=== PATIENT | female | born 1960 | race Caucasian/White ===

== ENCOUNTER → 2020-02-21 09:59 | Outpatient (BNVA) | payer MEDICARE, OTHER, SELFPAY | PROVIDERS: PCP Internal Medicine; Referring Provider Internal Medicine; Visit Provider Nurse Practitioner Gerontology | DX: E11.65 Type 2 diabetes mellitus with hyperglycemia (principal); I10 Essential (primary) hypertension; E78.5 Hyperlipidemia, unspecified; Z79.4 Long term (current) use of insulin | CPT/HCPCS: 82947; 99214 ==

== ENCOUNTER 2020-04-05 09:50 | Outpatient (REF) | payer MEDICARE, OTHER, SELFPAY ==
--- NOTE | 2020-04-05 | MM_ITS ---
EXAMINATION: MM SCREENING DIGITAL BREAST TOMOSYNTHESIS, BILATERAL CLINICAL INFORMATION: Screening. Asymptomatic. The lifetime risk of breast cancer based on the Tyrer-Cuzick Model is 12.5%. COMPARISON: Mammography: January 28, 2019 and studies dating back to December 14, 2007 TECHNIQUE: Digital breast tomosynthesis is performed in both the craniocaudal and mediolateral oblique views along with computer-aided detection (CAD). Synthesized 2D images are generated from the tomosynthesis. FINDINGS: The breasts are almost entirely fatty (ACR BI-RADS breast composition Category a). There are no significant masses, abnormal calcifications, or other abnormalities. MM/MM tomosynthesis screening BI IMPRESSION: There are no significant changes from prior study. ASSESSMENT: BI-RADS 1: Negative RECOMMENDATION: Routine annual mammography screening. This patient's information was entered into a reminder system with a target due date for their next mammogram.
== END 2020-04-05 09:51 | disposition home or self-care (01) ==
LOC: HO.MAMMO 09:50
PROVIDERS: PCP Internal Medicine; Visit Provider Internal Medicine
DX: Z12.31 Encounter for screening mammogram for malignant neoplasm of breast (principal)
CPT/HCPCS: 77063; 77067

== ENCOUNTER → 2020-05-24 07:36 | Outpatient (BNVA) | payer MEDICARE, OTHER, SELFPAY | PROVIDERS: PCP Internal Medicine; Visit Provider Nurse Practitioner Gerontology | DX: Z13.89 Encounter for screening for other disorder (principal) | CPT/HCPCS: Q3014 ==

== ENCOUNTER → 2020-11-02 09:52 | Outpatient (BNVA) | payer MEDICARE, OTHER, SELFPAY | PROVIDERS: PCP Internal Medicine; Visit Provider Nurse Practitioner Gerontology | DX: E11.65 Type 2 diabetes mellitus with hyperglycemia (principal); E11.42 Type 2 diabetes mellitus with diabetic polyneuropathy; E78.5 Hyperlipidemia, unspecified; E66.01 Morbid (severe) obesity due to excess calories; I10 Essential (primary) hypertension; Z79.4 Long term (current) use of insulin; Z68.43 Body mass index [BMI] 50.0-59.9, adult | CPT/HCPCS: 82947; 99212 ==

== ENCOUNTER → 2021-02-25 12:54 | Outpatient (BNVA) | payer MEDICARE, OTHER, SELFPAY | PROVIDERS: PCP Internal Medicine; Visit Provider Nurse Practitioner Gerontology | DX: E11.42 Type 2 diabetes mellitus with diabetic polyneuropathy (principal); E11.319 Type 2 diabetes mellitus with unspecified diabetic retinopathy without macular edema; E11.65 Type 2 diabetes mellitus with hyperglycemia; E78.5 Hyperlipidemia, unspecified; E66.01 Morbid (severe) obesity due to excess calories; I10 Essential (primary) hypertension; Z79.4 Long term (current) use of insulin; Z68.43 Body mass index [BMI] 50.0-59.9, adult | CPT/HCPCS: 82947; 99212 ==

== ENCOUNTER → 2021-09-17 15:16 | Outpatient (BNVA) | payer MEDICARE, OTHER, SELFPAY | PROVIDERS: PCP Internal Medicine; Referring Provider Internal Medicine; Visit Provider Surgery | DX: L02.11 Cutaneous abscess of neck (principal); L72.0 Epidermal cyst | CPT/HCPCS: 99202 ==

== ENCOUNTER 2022-02-05 12:17 | Outpatient (REF) | payer MEDICARE, SELFPAY ==
--- NOTE | ~2022-02-05 | MM_ITS ---
EXAMINATION: MM SCREENING DIGITAL BREAST TOMOSYNTHESIS, BILATERAL CLINICAL INFORMATION: Screening. Asymptomatic. The lifetime risk of breast cancer based on the Tyrer-Cuzick Model is 12%. COMPARISON: Mammography: 04/05/2020, 01/28/2019 TECHNIQUE: Digital breast tomosynthesis is performed in both the craniocaudal and mediolateral oblique views along with computer-aided detection (CAD). Synthesized 2D images are generated from the tomosynthesis. Additional bilateral CC and additional bilateral MLO views are provided. FINDINGS: The breasts are almost entirely fatty (ACR BI-RADS breast composition Category a). Background stromal and fibroglandular densities are similar to prior exams. There is no developing density or interval mass or architectural abnormality. Again, there are scattered bilateral benign round and rim calcifications. The axilla and skin contours are unremarkable. No significant changes. MM/MM tomosynthesis screening BI IMPRESSION: No mammographic evidence of malignancy. ASSESSMENT: BI-RADS 1: Negative RECOMMENDATION: Routine annual mammography screening. This patient's information was entered into a reminder system with a target due date for their next mammogram.
== END 2022-02-05 12:18 | disposition home or self-care (01) ==
LOC: HO.MAMMO 12:17
PROVIDERS: Visit Provider Internal Medicine
DX: Z12.31 Encounter for screening mammogram for malignant neoplasm of breast (principal)
CPT/HCPCS: 77063; 77067

== ENCOUNTER 2022-08-17 18:15 | Emergency (ER) | payer MEDICARE, OTHER, SELFPAY ==
--- NOTE | ~2022-08-17 | US_ITS ---
EXAMINATION: US ABDOMEN LIMITED CLINICAL INFORMATION: Rule out periumbilical abscess. COMPARISON: None available. TECHNIQUE: Real-time imaging of the umbilical region FINDINGS: There is ill-defined heterogeneous hypoechoic soft tissue seen in the area of concern superior to the umbilicus. Appearance is suggestive of cellulitis. No focal fluid collection/abscess is seen. US/US abdomen limited IMPRESSION: Cellulitis. No focal fluid collection/abscess seen.
[2022-08-17 18:41] VITALS: BP 152/77; PULSE 88; RESP 18; TEMP 37.3; O2SAT 98; BMI 49.7
--- NOTE | 2022-08-17 18:48 | ED.GENADULT ---
HPI - General Adult General Chief complaint: Skin/Abscess/Foreign Body Stated complaint: bug bite infection Time Seen by Provider: 08/17/22 19:56 Source: patient, RN notes reviewed and old records reviewed Mode of arrival: ambulatory Limitations: no limitations History of Present Illness HPI narrative: 61-year-old female with past medical history significant for diabetes, history of renal transplant presents for evaluation of an infection to her abdomen. Patient reports that she felt a bug bite her a few days ago. There was initial pain and then some itching to the area around her belly button. She states that the area then became red hot and swollen. She talked to her doctor on Thursday, 2 days ago and was prescribed cephalexin She has taken 3 days of the cephalexin with no improvement in her symptoms She states that she had some chills but has not had any documented fevers No other complaints or concerns at this time. Related Data Home Medications Medication Instructions Recorded Confirmed calcifediol 30 mcg capsule,24 30 mcg PO DAILY 02/21/20 09/20/21 hr,extended release insulin syringe-needle U-100 1 mL #10 ea 02/21/20 09/20/21 30 gauge x 1/2 levothyroxine 50 mcg tablet 50 mcg PO DAILY 02/21/20 09/20/21 magnesium oxide 400 mg (241.3 mg 400 mg PO DAILY 02/21/20 02/25/21 magnesium) tablet mycophenolate mofetil 500 mg tablet 500 mg PO BID 02/21/20 09/20/21 nortriptyline 25 mg capsule 25 mg PO BID 02/21/20 09/20/21 prednisone 5 mg tablet 5 mg PO DAILY 02/21/20 09/20/21 simvastatin 20 mg tablet 20 mg PO DAILY 02/21/20 09/20/21 empagliflozin 10 mg-metformin ER 1 tab PO 05/24/20 09/20/21 1,000 mg tablet,extended release 24hr sumatriptan succinate 50 mg tablet 50 mg PO 02/25/21 02/25/21 lisinopril 40 mg tablet 40 mg PO DAILY 09/17/21 09/20/21 metoprolol succinate 50 mg 0 mg PO 09/17/21 09/20/21 tablet,extended release 24 hr Previous Rx's Medication Instructions Recorded blood sugar diagnostic (FreeStyle 1 strip miscellaneous QID #350 12/31/20 Lite Strips) strips flash glucose scanning reader #1 ea 02/25/21 (FreeStyle Neetu 2 Harrison) flash glucose sensor (FreeStyle #2 ea 02/25/21 Neetu 2 Sensor kit) insulin degludec 200 unit/mL (3 76 unit (0.38 mL) subcut DAILY PRN 04/16/21 mL) subcutaneous pen (Tresiba diabetes 90 days #42 mL FlexTouch U-200 insulin) pen needle, diabetic 32 gauge x 1 ea miscellaneous DAILY #100 ea 04/22/21 (BD Haven 2nd Gen Pen Needle) insulin aspart U-100 100 unit/mL 16 - 30 unit (0.16 - 0.3 mL) 05/14/21 subcutaneous solution (Novolog subcut QID 90 days #90 mL U-100 Insulin aspart) dulaglutide 3 mg/0.5 mL 3 mg (0.5 mL) subcut QWEEK #6 mL 11/21/21 subcutaneous pen injector (Trulicity) doxycycline hyclate 100 mg tablet 100 mg PO BID #20 tabs 08/17/22 Allergies Allergy/AdvReac Type Severity Reaction Status Date / Time No Known Allergies Allergy Unknown Verified 08/17/22 18:40 Review of Systems Constitutional: Constitutional: Reports as per HPI, Reports chills, Denies fatigue, Denies fever(s) and Denies headache(s) ENT: Denies headache(s) Cardiovascular: Cardiovascular: Denies chest pain and Denies dyspnea Respiratory: Respiratory: Denies cough and Denies dyspnea Gastrointestinal: Gastrointestinal: Denies abdominal pain, Denies constipation and Denies vomiting Genitourinary: Genitourinary: Denies dysuria Integumentary/Breasts: Skin/Breast: Reports erythema Neurologic: Denies headache(s) and Denies focal weakness Endocrine: Endocrine: Denies fatigue PMFSH Past Medical History Medical History BMI 50.0-59.9, adult Chronic kidney disease Diabetes mellitus with hyperglycemia Diabetes type 2, uncontrolled Essential hypertension Gout Hyperlipidemia LDL goal <100 Lupus Migraine headache Obesity due to excess calories Retinopathy Subclinical hypothyroidism Type 2 diabetes mellitus with diabetic polyneuropathy Type 2 diabetes mellitus with retinopathy Surgical History Hx of adenoidectomy Hx of appendectomy Hx of colonoscopy Hx of kidney transplant Hx of tonsillectomy Family History Family History Father Colon cancer Kidney disease Mother Throat cancer COPD (chronic obstructive pulmonary disease) Alzheimer disease Paternal Grandfather Colon cancer Maternal Grandfather Lung cancer Social History Social History Household Members: Family Alcohol intake: current Alcohol intake frequency: holidays/special occasions only Patient Tobacco Use Status: Never used Tobacco Physical Exam ED Vital Signs: Vital Signs - 24 hr 08/17/22 18:41 Temperature 99.1 F Pulse Rate 88 Respiratory Rate 18 Blood Pressure 152/77 H Pulse Oximetry 98 Oxygen Delivery Method Room Air BMI result Body Mass Index 49.7 Const General: healthy appearing, comfortable, no acute distress, alert and awake Nutritional Appearance: well nourished Orientation/consciousness: patient oriented x3 HENMT Head: Yes normocephalic and Yes atraumatic Throat: Yes posterior oropharynx normal Eyes Eyelids: Yes eyelids normal Conjunctivae: conjunctivae normal Sclerae: sclerae normal Corneas: corneas normal Pupils: Equal, round and reactive pupils present EOM: EOMs intact bilaterally Neck Neck: Yes full ROM Resp Effort & Inspection: normal respiratory effort, able to speak in complete sentences, no audible wheezes and not labored Auscultation: clear to auscultation bilaterally Cardio Rate: regular rate Rhythm: regular rhythm GI Other: Patient has a 7 cm area of erythema in the periumbilical region. There is induration with no clear fluctuance. The area encompasses the umbilicus. No purulent drainage Inspection: No distended Palpation (GI): Soft to palpation, not firm, nontender, no guarding and not rigid Auscultation: normoactive bowel sounds Neuro General: patient oriented x3 Cranial nerves: Yes CN's II-XII intact bilaterally, Yes Equal, round and reactive pupils present and Yes Bilaterally intact EOM present Cognition (Neuro): normal cognition Extrem Other: Moving all extremities well without any obvious deformities Course Course Course Narrative: 61-year-old female with history of diabetes and renal transplant presents for evaluation of ?I have an infection around the belly button. ? She believes that she was ?bit by something a few days ago and it was painful and itchy. The area then started to become red and painful and hot to the touch. Her doctor prescribed cephalexin on Thursday and she has had 3 days of antibiotics without any improvement in her symptoms which she actually feels is worsening. Plan to check basic labs and get an ultrasound to evaluate for abscess. There is no evidence of sepsis. Medical Decision Making Medical Decision Making [facility] Narrative: The patient has a very clear cellulitis. I ordered labs and ultrasound to evaluate for abscess that may require I& D. The ultrasound was negative for abscess and this shows cellulitis. The patient is not septic. She has been on Keflex so we will add doxycycline to cover for MRSA. Patient's doctor return for new or worsening symptoms at that point, she may require IV antibiotics if her symptoms do not improve Differential Diagnosis Abscess Cellulitis Dermatitis Acute rash Lab Data 08/17/22 18:59 08/17/22 18:59 Labs: Lab Results 08/17/22 08/17/22 Range/Units 18:59 18:59 WBC 15.1 H (4.8-10.8) X10*3/uL RBC 3.79 L (4.20-5.50) X10*6/uL Hgb 11.6 L (12.0-16.0) g/dl Hct 36.4 L (37.0-47.0) % MCV 96.0 (80.0-98.0) fL MCH 30.6 (27.0-33.0) pg MCHC 31.9 (31.0-35.0) g/dl RDW 13.3 (11.0-16.0) % Plt Count 208 (160-400) X10*3/uL MPV 9.5 (9.4-12.3) fL Immature Gran % (Auto) 0.6 H (0.0-0.4) % Neut % (Auto) 71.7 (45-73) % Lymph % (Auto) 15.5 L (20-40) % Moffat % (Auto) 9.6 (2-11) % Eos % (Auto) 2.4 (0-4) % Baso % (Auto) 0.2 (0-2) % Lymph # (Auto) 2.3 (1.2-4.9) X10*3/uL Moffat # (Auto) 1.5 H (0.1-1.2) X10*3/uL Eos # (Auto) 0.4 (0.0-0.4) X10*3/uL Baso # (Auto) 0.0 (0.0-0.2) X10*3/uL Abs Immat Gran (auto) 0.09 H (0.00-0.03) X10*3/uL Absolute Neuts (auto) 10.8 H (2.0-8.3) x10*3/uL Absolute Nucleated RBC 0.000 (0.0-0.012) X10*3/uL Nucleated RBC % (auto) 0.0 (0.0-0.2) /100WBC Sodium 143 (135-145) mmol/L Potassium 4.2 (3.3-5.1) mmol/L Chloride 112 H (96-108) mmol/L Carbon Dioxide 23 (22-29) mmol/L Anion Gap 12 (12-20) BUN 27 H (9-16) mg/dL Creatinine 1.70 H (0.5-1.4) mg/dL Estim Creat Clear Calc 44.1 Estimated GFR 31 Random Glucose 131 H (60-115) mg/dL Calcium 8.6 (8.4-10.2) mg/dL Total Bilirubin 0.5 (0.0-1.0) mg/dL AST 25 (5-31) U/L ALT 24 (0-31) U/L Alkaline Phosphatase 91 (39-117) U/L Total Protein 6.4 L (6.5-8.0) g/dL Albumin 3.5 (3.5-5.0) g/dL Discharge Plan Discharge Clinical Impression: Abdominal wall cellulitis Patient Disposition: Home, Self-Care Instructions: Cellulitis (ED) Additional Instructions: Your ultrasound did not show any evidence of abscess. Continue taking the cephalexin as prescribed In addition, start taking doxycycline twice daily for the next 10 days Follow-up with her primary doctor Return to the ER for any new or worsening symptoms Prescriptions: New doxycycline hyclate 100 mg tablet 100 mg PO BID Qty: 20 0RF No Action FreeStyle Lite Strips Strip 1 strip miscellaneous QID Qty: 350 3RF Tresiba FlexTouch U-200 200 unit/mL (3 mL) insulin pen 76 unit subcut DAILY PRN (Reason: diabetes) 90 Days Qty: 42 1RF pen needle, diabetic [BD Haven 2nd Gen Pen Needle] 32 gauge x needle 1 ea miscellaneous DAILY Qty: 100 3RF insulin aspart U-100 [Novolog U-100 Insulin aspart] 100 unit/mL solution 16 - 30 unit subcut QID 90 Days Qty: 90 1RF Trulicity 3 mg/0.5 mL pen injector 3 mg subcut QWEEK Qty: 6 1RF (DME) insulin syringe-needle U-100 1 mL 30 gauge x 1/2 syringe See Rx Instructions .ROUTE .MEDSUPPLY Qty: 10 Rx Instructions: As directed mycophenolate mofetil 500 mg tablet 500 mg PO BID Rayaldee 30 mcg capsule,extended release 24 hr 30 mcg PO DAILY prednisone 5 mg tablet 5 mg PO DAILY simvastatin 20 mg tablet 20 mg PO DAILY levothyroxine 50 mcg tablet 50 mcg PO DAILY nortriptyline 25 mg capsule 25 mg PO BID magnesium oxide 400 mg (241.3 mg magnesium) tablet 400 mg PO DAILY sumatriptan succinate 50 mg tablet 50 mg PO empagliflozin-metformin 10-1,000 mg tablet, IR - ER, biphasic 24hr 1 tab PO (DME) FreeStyle Neetu 2 Sensor Kit See Rx Instructions .ROUTE .MEDSUPPLY Qty: 2 11RF Rx Instructions: As directed every 2 weeks (DME) FreeStyle Neetu 2 Harrison Misc See Rx Instructions .ROUTE .MEDSUPPLY Qty: 1 0RF Rx Instructions: As directed lisinopril 40 mg tablet 40 mg PO DAILY metoprolol succinate 50 mg tablet extended release 24 hr 0 mg PO
[2022-08-17 19:06] LABS: MANUAL DIFF FLAG NO
[2022-08-17 19:07] LABS: Basophils Percent Auto 0.2 % (0-2); Eosinophils Absolute Auto 0.4 X10*3/uL (0.0-0.4); Eosinophils Percent Auto 2.4 % (0-4); Hematocrit 36.4 % (37.0-47.0); Hemoglobin 11.6 g/dl (12.0-16.0); Imm Gran Abs Auto 0.09 X10*3/uL (0.00-0.03); Imm Gran Pct Auto 0.6 % (0.0-0.4); Lymphocytes Absolute Auto 2.3 X10*3/uL (1.2-4.9); Lymphocytes Percent Auto 15.5 % (20-40); Mean Corpuscular HGB Conc 31.9 g/dl (31.0-35.0); Mean Corpuscular Hemoglobin 30.6 pg (27.0-33.0); Mean Platelet Volume 9.5 fL (9.4-12.3); Monocytes Absolute Auto 1.5 X10*3/uL (0.1-1.2); Monocytes Percent Auto 9.6 % (2-11); Neutrophils Absolute Auto 10.8 x10*3/uL (2.0-8.3); Neutrophils Percent Auto 71.7 % (45-73); Platelet Count 208 X10*3/uL (160-400); Red Blood Count 3.79 X10*6/uL (4.20-5.50); Red Cell Distribution Width 13.3 % (11.0-16.0); White Blood Count 15.1 X10*3/uL (4.8-10.8)
[2022-08-17 19:34] LABS: Alanine Aminotransferase 24 U/L (0-31); Albumin Level 3.5 g/dL (3.5-5.0); Alkaline Phosphatase 91 U/L (39-117); Anion Gap 12 (12-20); Aspartate Amino Transferase 25 U/L (5-31); Bilirubin Total 0.5 mg/dL (0.0-1.0); Blood Urea Nitrogen 27 mg/dL (9-16); Calcium 8.6 mg/dL (8.4-10.2); Carbon Dioxide 23 mmol/L (22-29); Chloride 112 mmol/L (96-108); Creatinine Clr Calc Pharmacy 44.1; Estimated Glomerular Filt Rate 31; Glucose Random 131 mg/dL (60-115); Potassium 4.2 mmol/L (3.3-5.1); Sodium 143 mmol/L (135-145); Total Protein 6.4 g/dL (6.5-8.0)
--- OUTSIDE RECORDS SUMMARY | 2022-08-17 20:03 | XMS_ITS | Continuity of Care Document ---
Author Name Unknown Organization [facility] ter Address [address] [place] [id number]- Care Team Providers Care Capital Campaign Fundraiser Name Role Phone Amaya MITCHELL, Davey Olmstead Primary Care Physician Encounter [facility] [place] Date(s): 08/06/21 - 02/11/[address] [address]- Attending Physician: Gaurang Rivera MD Admitting Physician: Gaurang Rivrea MD Referring Physician: Gaurang Rivera MD Allergies, Adverse Reactions, Alerts No Known Allergies Immunizations Given and Recorded Vaccine Date Status Refusal Reason SARS-CoV-2 (COVID-19) mRNA BNT-162b2 vac 01/10/21 Recorded Medications allopurinol 100 mg oral tablet 100 mg, 1, tablet, By Mouth, Daily, # 30 tablet, Refills 0, Maintenance, 09/28/18 12:07:01 EDT Start Date: 09/28/18 Status: Ordered belatacept = 5 mg/kg, IV Infusion, 0 Refills, Maintenance, 02/10/21 9:21:00 EDT, Partial fill upon patient request if the prescription is for a schedule II opioid drug. Start Date: 02/10/21 Status: Ordered CellCept 500 mg oral tablet 1 tablet = 500 mg, By Mouth, 2 times a day, # 120 tablet, 0 Refills, Maintenance, 09/28/18 12:05:47EDT, Tablet Start Date: 09/28/18 Status: Ordered furosemide 20 mg oral tablet 20 mg, 1, tablet, By Mouth, Daily, PRN, leg swelling, Other Start Date: 09/28/18 Status: Ordered lisinopril 10 mg oral tablet 10 mg, 1, tablet, By Mouth, Daily, # 30 tablet, Refills 0, Maintenance, 05/05/21 9:22:00 EST, Partial fill upon patient request if the prescription is for a schedule II opioid drug. Start Date: 05/05/21 Status: Ordered metoprolol 50 mg oral tablet 50 mg, 1, tablet, By Mouth, Daily, Refills 0, Maintenance, 05/05/21 9:23:00 EST, Partial fill upon patient request if the prescription is for a schedule II opioid drug. Start Date: 05/05/21 Status: Ordered nortriptyline 25 mg oral capsule 25 mg, 1, capsule, By Mouth, 2 times a day, # 270 capsule, Refills 0, Maintenance, 12/27/19 10:38:00 EDT Start Date: 12/27/19 Status: Ordered NovoLOG 100 units/mL subcutaneous solution = 20 units, Subcutaneous Injection, 3 times a day before meals, # 10 mL, 0 Refills, Maintenance, 09/28/18 12:06:08 EDT, Solution Start Date: 09/28/18 Status: Ordered Percocet 5 mg-325 mg oral tablet 1, tablet, By Mouth, Every 6 hours, PRN, Refills 0, Tot. Refills 0, Maintenance, as needed for pain, 03/10/21 9:23:00 EST, Tablet, Partial fill upon patient request if the prescription is for a schedule II opioid drug. Start Date: 03/10/21 Status: Ordered predniSONE 5 mg oral tablet 1 tablet = 5 mg, By Mouth, Daily, 0 Refills, Maintenance, 09/28/18 14:29:57 EDT Start Date: 09/28/18 Status: Ordered Rayaldee 30 mcg oral capsule, extended release 1 capsule = 30 mcg, By Mouth, Daily Start Date: 09/28/18 Status: Ordered simvastatin 10 mg oral tablet 10 mg, 1, tablet, By Mouth, Daily in AM, # 30 tablet, Refills 0, Maintenance, 09/28/18 12:07:17 EDT Start Date: 09/28/18 Status: Ordered Synjardy 5 mg-1000 mg oral tablet 1 tablet, By Mouth, Daily, with meals, # 180 tablet, 0 Refills, Maintenance, 06/03/20 10:13:00 EST,Tablet, Partial fill upon patient request if the prescription is for a schedule II opioid drug. Start Date: 2/7/21 Status: Ordered Tresiba FlexTouch 200 units/mL subcutaneous solution = 100 units, Subcutaneous Injection, Daily, rotate injection sites, # 9 mL, 0 Refills, Maintenance,09/28/18 12:06:28 EDT, Solution Start Date: 09/28/18 Status: Ordered Trulicity Pen 1.5 mg/0.5 mL subcutaneous solution = 1.5 mg, Subcutaneous Injection, Every Thursday Start Date: 09/28/18 Status: Ordered Patient Care team information Personnel Name: Amaya MITCHELL, Davey Olmstead Address: Address: [address] [place] [id number]
--- OUTSIDE RECORDS SUMMARY | 2022-08-17 20:03 | XMS_ITS | Continuity of Care Document ---
Author Name Unknown Organization [facility] ter Address [address] [place] [id number]- Care Team Providers Care Door Repairman Name Role Phone Amaya MITCHELL, Davey Olmstead Primary Care Physician [place] [facility] [place] 01/[place]/[address] [address]- Attending Physician: Garuang Rivera MD Admitting Physician: Gaurang Rivera MD Referring Physician: Gaurang Rivera MD Allergies, [...] Every Thursday Start Date: 09/28/18 Status: Ordered Care Team Personnel Name: Amaya MITCHELL, Davey Olmstead Address: [address] [place] [id number]
--- OUTSIDE RECORDS SUMMARY | 2022-08-17 20:03 | XMS_ITS | Continuity of Care Document ---
Author Name Unknown Organization [facility] ter Address [address] [place] [id number]- Care Team Providers Care Stand Up Forklift Operator Name Role Phone Amaya MITCHELL, Davey Olmstead Primary Care Physician [place] [facility] [place] - 11/19/[address] [address]- Attending Physician: Gaurang Rivera MD Admitting Physician: Gaurang Rivera MD [...]
--- OUTSIDE RECORDS SUMMARY | 2022-08-17 20:03 | XMS_ITS | Continuity of Care Document ---
Author Name Unknown Organization [facility] ter Address [address] [place] [id number]- Care Team Providers Care Case Management Manager Name Role Phone Amaya MITCHELL, Davey Olmstead Primary Care Physician Encounter [facility] [place] Date(s): 07/16/21 - 08/29/[address] [id number] Attending Physician: Eufemia Chopra MD Admitting Physician: Eufemia Chopra MD Referring Physician: Eufemia Chopra MD Allergies, Adverse Reactions, Alerts No Known [...] a schedule II opioid drug. Start Date: 06/03/20 Status: Ordered Tresiba FlexTouch 200 units/mL subcutaneous solution = 100 units, Subcutaneous Injection, Daily, rotate injection sites, # 9 mL, 0 Refills, Maintenance,09/28/18 12:06:28 EDT, Solution Start Date: 09/28/18 Status: Ordered Trulicity Pen 1.5 mg/0.5 mL subcutaneous solution = 1.5 mg, Subcutaneous Injection, Every Thursday Start Date: 09/28/18 Status: Ordered
--- OUTSIDE RECORDS SUMMARY | 2022-08-17 20:03 | XMS_ITS | Continuity of Care Document ---
Author Name Unknown Organization [facility] ter Address [address] [place] [id number]- Care Team Providers Care Tower Control Operator Name Role Phone Amaya MITCHELL, Davey Olmstead Primary Care Physician [place] [facility] [id number] Date(s): 03/14/20 - 06/28/[address] [address] Attending Physician: Gaurang Rivera MD Admitting Physician: Gaurang Rivera MD Referring Physician: Gaurang Rivera MD Allergies, Adverse Reactions, Alerts Substance Reaction Severity Status NKA Active Medications allopurinol 100 mg oral tablet 100 mg, 1, tablet, By Mouth, Daily, # 30 tablet, Refills 0, Maintenance, 09/28/18 12:07:01 EDT Start Date: 09/28/18 Status: Ordered CellCept 500 mg oral tablet 1 tablet = 500 mg, By Mouth, 2 times a day, # 120 tablet, 0 Refills, Maintenance, 09/28/18 12:05:47EDT, Tablet Start Date: 09/28/18 Status: Ordered Envarsus XR 1 mg oral tablet, extended release 2 tablet = 2 mg, By Mouth, Daily in AM, 0 Refills, Maintenance, 09/28/18 12:05:34 EDT Start Date: 09/28/18 Status: Ordered furosemide 20 mg oral tablet 20 mg, 1, tablet, By Mouth, Daily Start Date: 09/28/18 Status: Ordered lisinopril 5 mg oral tablet 5 mg, 1, tablet, By Mouth, Daily, # 30 tablet, Refills 0, Maintenance, 09/28/18 12:07:11 EDT Start Date: 09/28/18 Status: Ordered nortriptyline 25 mg oral capsule 25 mg, 1, capsule, By Mouth, 2 times a day, # 270 capsule, Refills 0, Maintenance, 12/27/19 10:38:00 EDT Start Date: 12/27/19 Status: Ordered NovoLOG 100 units/mL subcutaneous solution = 20 units, Subcutaneous Injection, 3 times a day before meals, # 10 mL, 0 Refills, Maintenance, 09/28/18 12:06:08 EDT, Solution Start Date: 09/28/18 Status: Ordered predniSONE 5 mg oral tablet 1 tablet = 5 mg, By Mouth, Daily, 0 Refills, Maintenance, 09/28/18 14:29:57 EDT Start Date: 09/28/18 Status: Ordered Rayaldee 30 mcg oral capsule, extended release 1 capsule = 30 mcg, By Mouth, Daily Start Date: 09/28/18 Status: Ordered simvastatin 10 mg oral tablet 10 mg, 1, tablet, By Mouth, Daily at bedtime, # 30 tablet, Refills 0, Maintenance, 09/28/18 [...]
--- OUTSIDE RECORDS SUMMARY | 2022-08-17 20:03 | XMS_ITS | Continuity of Care Document ---
Author Name Unknown Organization [facility] ter Address [address] [place] [id number]- Care Team Providers Care Steaming Machine Operator Name Role Phone Amaya MITCHELL, Davey Olmstead Primary Care Physician [place] [facility] [place] 05/12/19 - 05/19/[address] [address]- [facility] Attending Physician: Eufemia Chopra MD Allergies, Adverse Reactions, Alerts Substance Reaction [...] 12:07:11 EDT Start Date: 09/28/18 Status: Ordered NovoLOG 100 units/mL subcutaneous solution [...] 12:07:17 EDT Start Date: 09/28/18 Status: Ordered Tresiba FlexTouch 200 units/mL subcutaneous solution = 100 units, Subcutaneous Injection, Daily, rotate injection sites, # 9 mL, 0 Refills, Maintenance,09/28/18 12:06:28 EDT, Solution Start Date: 09/28/18 Status: Ordered Trulicity Pen 1.5 mg/0.5 mL subcutaneous solution = 1.5 mg, Subcutaneous Injection, Every Thursday Start Date: 09/28/18 Status: Ordered Results Orders for Microbiology Reports Name Date Urine Culture (URINE CULTURE) 05/12/19 Microbiology Reports TEST:Urine Culture STATUS:Auth (Verified) BODY SITE: SOURCE:URINE COLLECTED DATE/TIME:05/12/19 10:08 AM Urine Culture SPECIMEN DESCRIPTION : URINE SPECIAL REQUESTS : NONE Reflexed from [id number] CULTURE : Mixed bacterial andrez, indicative of urogenital contamination. REPORT STATUS : FINAL 05/13/2019
[2022-08-17] MEDS: Doxycycline Monohydrate 100 MG CAPSULE PO (20:13)
--- NOTE | 2022-08-17 20:16 | PC.NURSE ---
pt medicated per MAR fully ambulatory at dc
== END 2022-08-17 20:16 | disposition home or self-care (01) ==
PROVIDERS: Physician Assistant; Emergency Provider Internal Medicine; PCP Internal Medicine
DX: L03.311 Cellulitis of abdominal wall (principal); R10.2 Pelvic and perineal pain; Z79.899 Other long term (current) drug therapy
CPT/HCPCS: 36415; 76705; 80053; 85025; 99282; 99284

== ENCOUNTER 2023-07-22 09:36 | Outpatient (REF) | payer OTHER, MEDICAID, SELFPAY ==
--- NOTE | ~2023-07-22 | XR_ITS ---
EXAMINATION: XR LUMBOSACRAL SPINE CLINICAL INFORMATION: Low back pain COMPARISON: Lumbar spine 10/31/2011 TECHNIQUE: Three views of the lumbosacral spine. FINDINGS: There 5 nonrib-bearing lumbar-type vertebral bodies. The height of the lumbar vertebral bodies is well-maintained. There is mild compression of the T12 vertebral body, unchanged. There is straightening of the usual lumbar lordosis which can be seen with muscle spasm. There is interval development of degenerative disc disease at all lumbar levels with marginal osteophyte formation and vacuum phenomenon at almost all levels. There is multilevel degenerative facet joint disease, most pronounced in the lower lumbar spine. Multiple surgical clips are again seen in the right side of the pelvis. 1.6 cm calcification projects over the left upper SI joint. XR/XR lumbar spine 2-3V IMPRESSION: 1. Muscle spasm. 2. Multilevel degenerative disc disease and degenerative facet joint disease. 3. 1.6 cm calcification projects over the left upper SI joint, possibly representing a calcified lymph node.
== END 2023-07-22 09:37 | disposition home or self-care (01) ==
LOC: HO.HMGCX 09:36
PROVIDERS: PCP Internal Medicine; Visit Provider Internal Medicine
DX: M54.50 Low back pain, unspecified (principal)
CPT/HCPCS: 72100

== ENCOUNTER 2023-10-24 10:12 | Emergency (ER) | payer OTHER, MEDICAID, SELFPAY ==
--- NOTE | ~2023-10-24 | XR_ITS ---
EXAMINATION: XR chest 2V CLINICAL INFORMATION: Reason for Exam cough COMPARISON: Prior chest x-rays not available at the time of this dictation. TECHNIQUE: XR chest 2V, 2 Views Lungs and [place]: Mild increased lung markings and peribronchial wall thickening might be small airway disease such as bronchiolitis or mild interstitial pneumonitis, no dense focal consolidation lobar pneumonia. Mild prominence of the pulmonary vasculature without marika failure. Pleura: Normal. Costophrenic angles are sharp. No pneumothorax. Heart: Cardiac silhouette mildly enlarged. Mediastinum: Widened mediastinum, although could be vascular, cannot rule out underlying mediastinal lymphadenopathy. Bones: Skeletal structures included are normal for patient's age. XR/XR chest 2V IMPRESSION: 1. Mild increased lung markings and peribronchial wall thickening might be small airway disease such as bronchiolitis or mild interstitial pneumonitis, no dense focal consolidation lobar pneumonia. 2. Mild vascular congestion without marika failure. Widened mediastinum, although could be vascular, cannot rule out underlying mediastinal lymphadenopathy. May consider correlation with follow-up CT scan, if not performed follow-up x-ray in one month recommended.
[2023-10-24 10:17] VITALS: BP 157/90; PULSE 105; RESP 26; TEMP 36.8; O2SAT 94; BMI 55.9
--- NOTE | 2023-10-24 10:55 | ECG_ITS ---
Test Reason : COUGH Blood Pressure : / mmHG Vent. Rate : 096 BPM Atrial Rate : 096 BPM P-R Int : 142 ms QRS Dur : 088 ms QT Int : 360 ms P-R-T Axes : 044 -51 019 degrees QTc Int : 454 ms Normal sinus rhythm Left anterior fascicular block Cannot rule out Inferior infarct (cited on or before 24-OCT-2023) Abnormal ECG When compared with ECG of 06-JUN-2014 07:19, No significant change was found Referred By: Elisabet Campos Electronically Signed By:EMMANUEL MOLINA MD
--- NOTE | 2023-10-24 11:05 | ED.URI ---
HPI - URI/Sore Throat General Chief Complaint: Upper Respiratory Symptoms Stated Complaint: not feeling well Time Seen by Provider: 10/24/23 10:54 Source: patient Mode of arrival: ambulatory Limitations: no limitations History of Present Illness ED Provider: DR. Mandujano HPI Narrative: 63-year-old female came in for evaluation of nonproductive cough, shortness of breath, wheezing. Patient is nonsmoker, no history of lung disease, no sick contacts, no recent travel or prolonged immobilization no lower extremity swelling or tenderness. symptoms started 2 days ago. No fever, chills. Patient with history of kidney transplant 20 years ago at [facility]. Related Data Home Medications ?Medication ?Instructions ?Recorded ?Confirmed calcifediol 30 mcg capsule,24 30 mcg PO DAILY 02/21/20 09/20/21 hr,extended release insulin syringe-needle U-100 1 mL #10 ea 02/21/20 09/20/21 30 gauge x 1/2 levothyroxine 50 mcg tablet 50 mcg PO DAILY 02/21/20 09/20/21 magnesium oxide 400 mg (241.3 mg 400 mg PO DAILY 02/21/20 02/25/21 magnesium) tablet mycophenolate mofetil 500 mg tablet 500 mg PO BID 02/21/20 09/20/21 nortriptyline 25 mg capsule 25 mg PO BID 02/21/20 09/20/21 prednisone 5 mg tablet 5 mg PO DAILY 02/21/20 09/20/21 simvastatin 20 mg tablet 20 mg PO DAILY 02/21/20 09/20/21 empagliflozin 10 mg-metformin ER 1 tab PO 05/24/20 09/20/21 1,000 mg tablet,extended release 24hr sumatriptan succinate 50 mg tablet 50 mg PO 02/25/21 02/25/21 lisinopril 40 mg tablet 40 mg PO DAILY 09/17/21 09/20/21 metoprolol succinate 50 mg 0 mg PO 09/17/21 09/20/21 tablet,extended release 24 hr Previous Rx's ?Medication ?Instructions ?Recorded blood sugar diagnostic (FreeStyle 1 strip miscellaneous QID #350 12/31/20 Lite Strips) strips flash glucose scanning reader #1 ea 02/25/21 (FreeStyle Neetu 2 Avis) flash glucose sensor (FreeStyle #2 ea 11/01/21 Neetu 2 Sensor kit) insulin degludec 200 unit/mL (3 76 unit (0.38 mL) subcut DAILY PRN 04/16/21 mL) subcutaneous pen (Tresiba diabetes 90 days #42 mL FlexTouch U-200 insulin) pen needle, diabetic 32 gauge x 1 ea miscellaneous DAILY #100 ea 04/22/21 (BD Haven 2nd Gen Pen Needle) insulin aspart U-100 100 unit/mL 16 - 30 unit (0.16 - 0.3 mL) 05/14/21 subcutaneous solution (Novolog subcut QID 90 days #90 mL U-100 Insulin aspart) dulaglutide 3 mg/0.5 mL 3 mg (0.5 mL) subcut QWEEK #6 mL 11/21/21 subcutaneous pen injector ([employer]) doxycycline hyclate 100 mg tablet 100 mg PO BID #20 tabs 08/17/22 Allergies Allergy/AdvReac Type Severity Reaction Status Date / Time No Known Allergies Allergy Unknown Verified 10/24/23 10:20 Review of Systems Review of Systems: All other systems are reviewed and are negative Constitutional: Reports as per HPI and Reports no additional constitutional complaints Eyes: Reports as per HPI and Reports no additional eye complaints Reports system reviewed and no additional complaints, except as documented Cardiovascular: Reports as per HPI and Reports no additional cardiovascular complaints Respiratory: Reports as per HPI and Reports no additional respiratory complaints Gastrointestinal: Reports as per HPI and Reports no additional gastrointestinal complaints Genitourinary: Reports no additional female genitourinary complaints Musculoskeletal: Reports no additional musculoskeletal complaints Skin/Breast: Reports system reviewed and no additional complaints, except as docu Psychiatric: Reports no additional psychiatric complaints Endocrine: Reports no additional endocrine complaints Hematologic/Lymphatic: Reports no additional hematologic/lymphatic complaints Allergic/Immunologic: Reports no additional allergic/immunologic complaints Reports system reviewed and no additional complaints, except as documented and Reports Abnormal speech present [facility] Past Medical History Medical History Diabetes type 2, uncontrolled Type 2 diabetes mellitus with retinopathy Obesity due to excess calories Type 2 diabetes mellitus with diabetic polyneuropathy Chronic kidney disease Retinopathy Subclinical hypothyroidism Gout Migraine headache Lupus Essential hypertension Hyperlipidemia LDL goal <100 BMI 50.0-59.9, adult Diabetes mellitus with hyperglycemia Surgical History Hx of colonoscopy Hx of adenoidectomy Hx of tonsillectomy Hx of appendectomy Hx of kidney transplant Family History Family History Father Colon cancer Kidney disease Mother Throat cancer COPD (chronic obstructive pulmonary disease) Alzheimer disease Paternal Grandfather Colon cancer Maternal Grandfather Lung cancer Social History Social History Household Members: Family Alcohol intake: current Alcohol intake frequency: holidays/special occasions only Patient Tobacco Use Status: Never used Tobacco Advance Directives: No Do you have a plan to hurt others: No Plan Physical Exam Vital Signs: Vital Signs: Last Vital Signs Temp 98.3 F 10/24/23 15:22 Pulse 92 10/24/23 15:22 Resp 24 H 10/24/23 15:22 BP 162/83 H 10/24/23 15:22 Pulse Ox 90 L 10/24/23 15:22 O2 Del Method Room Air 10/24/23 15:22 BMI result Body Mass Index 55.9 Vital signs have been reviewed and appear to be correct. Blood pressure elevated. Heart rate elevated, Respiratory rate elevated, Temperature normal. Oxygen saturation normal. Appearance: Alert. Oriented X3. No acute distress. Head: Normal external exam. Normocephalic. Atraumatic. No Dean signs noted. No raccoon eyes noted Eyes: PERRLA. EOMI. Conjunctiva and sclera normal. Eyelids normal. ENT: TM's Normal. Pharynx normal. Uvula midline. Moist mucous membranes. No trismus noted. No drooling noted. No muffled voice noted. Neck: Normal inspection. Neck supple. FROM. No adenopathy. Thyroid Normal. No meningeal signs. No neck mass noted. CVS: Normal heart rate and rhythm. Heart sound normal. No murmurs noted. Pulses normal throughout. Respiratory: No respiratory distress. Painless inspiration. Breath sounds normal. Diffuse expiratory wheezing with prolonged expiration and diffuse rhonchi, Chest nontender. No accessory muscle usage noted or decreased air movement noted. Abdomen: Soft and nontender. Bowel sounds normal in all 4 quadrants. No distention noted. No organomegaly noted. No visible injury noted. Back: No CVA tenderness. Full range of motion noted. Skin: Skin warm and dry. Normal skin color. Normal skin turgor. No rashes/lesions/lacerations noted. Extremities: No lower extremity edema. Extremities exhibit normal range of motion. Extremities nontender. Neuro: Oriented X 3. Cranial nerve exam: II-XII are grossly intact No motor deficit. No sensory deficit. Reflexes normal. Course Reevaluation(s) Reevaluation #1: Acute bronchitis, COVID 19 positive, ANDREW, elevated troponin. 1. Diffuse wheezing with dyspnea due to viral bronchitis continue with Solu-Medrol and bronchodilator. 2. COVID-19 infection admit with isolation for supportive measures. 3. ANDREW secondary to dehydration and decreased p.o. intake will admit IV hydration. 4. Elevated troponin patient has no chest pain, no EKG changes, will monitor serial troponins. Time: 15:08 Reevaluation #2: The case discussed with Dr. Shin who recommended to transfer to [facility] since the patient has history of renal transplant 20 years ago at [facility] and require more care there, the case was discussed with who accepted the patient to [facility]. Time: 16:35 Medications Administered Generic Name Dose Route Start Last Admin Trade Name Freq PRN Reason Stop Dose Admin Sodium Chloride 3 ml 10/24/23 16:00 10/24/23 16:09 0.9 % Sodium Chloride Flush 3 Ml Syringe IVFLUSH Not Given QSHIFT DARI Discontinued Medications Generic Name Dose Route Start Last Admin Trade Name Freq PRN Reason Stop Dose Admin Aspirin 325 mg 10/24/23 11:54 10/24/23 12:09 Aspirin Enteric Coated 325 Mg Tablet. PO 10/24/23 11:55 325 mg ONCE ONE Administration Azithromycin 500 mg 10/24/23 11:05 10/24/23 11:16 Azithromycin 500 Mg Tablet PO 10/24/23 11:06 500 mg ONCE ONE Administration Albuterol Sulfate 5 mg/ 0 mg 10/24/23 11:52 10/24/23 11:54 Albuterol/Ipratropium 3 ml INHALE 10/24/23 11:53 1 each ONCE ONE Administration Sodium Chloride 1,000 mls @ 999 mls/hr 10/24/23 15:09 10/24/23 15:52 Ns IV 10/24/23 16:09 999 mls/hr .Q1H1M ONE Administration Methylprednisolone Sodium Succinate 125 mg 10/24/23 15:09 10/24/23 16:02 Methylprednisolone Sod Succ 125 Mg/2 Ml Vial IVPUSH 10/24/23 15:10 125 mg ONCE ONE Administration Prednisone 60 mg 10/24/23 11:05 10/24/23 11:16 Prednisone 20 Mg Tablet PO 10/24/23 11:06 60 mg ONCE ONE Administration Medical Decision Making Differential Diagnosis Differential Diagnoses: The differential diagnosis associated with the presentation includes (Pneumonia, pneumothorax, pleural effusion, COVID-19, influenza, RSV, electrolyte derangement, ANDREW, ACS.) Admission/Observation Consideration of admission/observation: Escalation of care including admission/observation considered Consult Healthcare Provider Management of the patient was discussed with: Hospitalist (Dr. Kearney) Lab Data MDM Lab Attestation statement: I reviewed the patient's lab results. 10/24/23 11:15 10/24/23 11:15 Labs: Lab Results 10/24/23 10/24/23 Range/Units 11:15 15:11 WBC 7.1 (4.8-10.8) X10*3/uL RBC 3.42 L (4.20-5.50) X10*6/uL Hgb 10.6 L (12.0-16.0) g/dl Hct 33.0 L (37.0-47.0) % MCV 96.5 (80.0-98.0) fL MCH 31.0 (27.0-33.0) pg MCHC 32.1 (31.0-35.0) g/dl RDW 13.5 (11.0-16.0) % Plt Count 86 L D (160-400) X10*3/uL MPV 9.3 L (9.4-12.3) fL Immature Gran % (Auto) 1.0 H (0.0-0.4) % Neut % (Auto) 71.3 (45-73) % Lymph % (Auto) 13.5 L (20-40) % [place] % (Auto) 13.3 H (2-11) % Eos % (Auto) 0.8 (0-4) % Baso % (Auto) 0.1 (0-2) % Lymph # (Auto) 1.0 L (1.2-4.9) X10*3/uL [place] # (Auto) 0.9 (0.1-1.2) X10*3/uL Eos # (Auto) 0.1 (0.0-0.4) X10*3/uL Baso # (Auto) 0.0 (0.0-0.2) X10*3/uL Abs Immat Gran (auto) 0.07 H (0.00-0.03) X10*3/uL Absolute Neuts (auto) 5.1 (2.0-8.3) x10*3/uL Absolute Nucleated RBC 0.000 (0.0-0.012) X10*3/uL Nucleated RBC % (auto) 0.0 (0.0-0.2) /100WBC D-Dimer High Sensitivty 407 NG/ML Sodium 140 (135-145) mmol/L Potassium 4.1 (3.3-5.1) mmol/L Chloride 106 (96-108) mmol/L Carbon Dioxide 26 (22-29) mmol/L Anion Gap 12 (12-20) BUN 26 H (9-16) mg/dL Creatinine 2.59 H (0.5-1.4) mg/dL Estim Creat Clear Calc 30.3 Estimated GFR 19 Random Glucose 170 H (60-115) mg/dL Calcium 8.2 L (8.4-10.2) mg/dL Magnesium 1.7 (1.6-2.6) mg/dL Total Bilirubin 0.8 (0.0-1.0) mg/dL Direct Bilirubin 0.4 (0.0-0.5) mg/dL AST 45 H (5-31) U/L ALT 45 H (0-31) U/L Alkaline Phosphatase 92 (39-117) U/L Troponin I High Sens 154.0 H* 128.5 H* (<3.5-17.0) ng/L Total Protein 5.1 L (6.5-8.0) g/dL Albumin 2.4 L (3.5-5.0) g/dL Lipase 297 H (8-78) U/L Influenza Type A (PCR) NEGATIVE (Negative) Influenza Type B (PCR) NEGATIVE (Negative) RSV RNA Qual (PCR) NEGATIVE (Negative) SARS-CoV-2 RNA (RT-PCR) POSITIVE A (Negative) Independent Interpretation I performed an independent interpretation of an: Plain X-Ray (Chest:. Mild increased lung markings and peribronchial wall thickening might be small airway disease such as bronchiolitis or mild interstitial pneumonitis, no dense focal consolidation lobar pneumonia. 2. Mild vascular congestion without marika failure. ) Radiology Impression Discussion of test interpretation with radiology: I have reviewed the radiologist's reading. Discharge Plan Discharge Clinical Impression: COVID-19, ANDREW (acute kidney injury), Elevated troponin Patient Disposition: [facility] Transfer Details: [facility]. Prescriptions: No Action FreeStyle Lite Strips Strip 1 strip miscellaneous QID Qty: 350 3RF Tresiba FlexTouch U-200 200 unit/mL (3 mL) insulin pen 76 unit subcut DAILY PRN (Reason: diabetes) 90 Days Qty: 42 1RF pen needle, diabetic [BD Haven 2nd Gen Pen Needle] 32 gauge x 5/32 needle 1 ea miscellaneous DAILY Qty: 100 3RF insulin aspart U-100 [Novolog U-100 Insulin aspart] 100 unit/mL solution 16 - 30 unit subcut QID 90 Days Qty: 90 1RF Trulicity 3 mg/0.5 mL pen injector 3 mg subcut QWEEK Qty: 6 1RF doxycycline hyclate 100 mg tablet 100 mg PO BID Qty: 20 0RF (DME) insulin syringe-needle U-100 1 mL 30 gauge x 1/2 syringe See Rx Instructions .ROUTE .MEDSUPPLY Qty: 10 Rx Instructions: As directed mycophenolate mofetil 500 mg tablet 500 mg PO BID Rayaldee 30 mcg capsule,extended release 24 hr 30 mcg PO DAILY prednisone 5 mg tablet 5 mg PO DAILY simvastatin 20 mg tablet 20 mg PO DAILY levothyroxine 50 mcg tablet 50 mcg PO DAILY nortriptyline 25 mg capsule 25 mg PO BID magnesium oxide 400 mg (241.3 mg magnesium) tablet 400 mg PO DAILY sumatriptan succinate 50 mg tablet 50 mg PO empagliflozin-metformin 10-1,000 mg tablet, IR - ER, biphasic 24hr 1 tab PO (DME) FreeStyle Neetu 2 Sensor Kit See Rx Instructions .ROUTE .MEDSUPPLY Qty: 2 11RF Rx Instructions: As directed every 2 weeks (DME) FreeStyle Neetu 2 Avis Misc See Rx Instructions .ROUTE .MEDSUPPLY Qty: 1 0RF Rx Instructions: As directed lisinopril 40 mg tablet 40 mg PO DAILY metoprolol succinate 50 mg tablet extended release 24 hr 0 mg PO Print Language: Bulgarian
[2023-10-24] MEDS: predniSONE 20 MG TABLET 60 MG PO (11:16)
[2023-10-24] MEDS: Azithromycin 500 MG TABLET PO (11:16)
[2023-10-24 11:21] LABS: MANUAL DIFF FLAG NO
[2023-10-24 11:24] LABS: Basophils Percent Auto 0.1 % (0-2); Eosinophils Absolute Auto 0.1 X10*3/uL (0.0-0.4); Eosinophils Percent Auto 0.8 % (0-4); Hemoglobin 10.6 g/dl (12.0-16.0); Imm Gran Abs Auto 0.07 X10*3/uL (0.00-0.03); Lymphocytes Percent Auto 13.5 % (20-40); Mean Corpuscular HGB Conc 32.1 g/dl (31.0-35.0); Mean Corpuscular Volume 96.5 fL (80.0-98.0); Monocytes Absolute Auto 0.9 X10*3/uL (0.1-1.2); Monocytes Percent Auto 13.3 % (2-11); Neutrophils Absolute Auto 5.1 x10*3/uL (2.0-8.3); Neutrophils Percent Auto 71.3 % (45-73); Red Blood Count 3.42 X10*6/uL (4.20-5.50); Red Cell Distribution Width 13.5 % (11.0-16.0); White Blood Count 7.1 X10*3/uL (4.8-10.8)
[2023-10-24 11:44] LABS: Platelet Count 86 X10*3/uL (160-400)
[2023-10-24 11:45] LABS: Mean Platelet Volume 9.3 fL (9.4-12.3)
[2023-10-24 11:50] LABS: Alanine Aminotransferase 45 U/L (0-31); Albumin Level 2.4 g/dL (3.5-5.0); Alkaline Phosphatase 92 U/L (39-117); Anion Gap 12 (12-20); Aspartate Amino Transferase 45 U/L (5-31); Bilirubin Direct 0.4 mg/dL (0.0-0.5); Bilirubin Total 0.8 mg/dL (0.0-1.0); Blood Urea Nitrogen 26 mg/dL (9-16); Calcium 8.2 mg/dL (8.4-10.2); Carbon Dioxide 26 mmol/L (22-29); Chloride 106 mmol/L (96-108); Creatinine Clr Calc Pharmacy 30.3; Estimated Glomerular Filt Rate 19; Glucose Random 170 mg/dL (60-115); Magnesium 1.7 mg/dL (1.6-2.6); Potassium 4.1 mmol/L (3.3-5.1); Sodium 140 mmol/L (135-145); Total Protein 5.1 g/dL (6.5-8.0)
[2023-10-24] MEDS: Albuterol Sulfate 5 MG, Albuterol/Iprat 2.5/0.5MG 3 ML 3 ML INHALE (11:54)
[2023-10-24 11:56] VITALS: PULSE 104; RESP 32; O2SAT 91
[2023-10-24 11:56] LABS: D Dimer High Sensitivity 407 NG/ML
[2023-10-24 11:59] LABS: Influenza A PCR NEGATIVE (Negative); Influenza B PCR NEGATIVE (Negative); Resp Syncy Virus RNA Qual PCR NEGATIVE (Negative); SARS COV2 PCR INHOUSE POSITIVE (Negative)
[2023-10-24] MEDS: Aspirin Enteric Coated 325 MG TABLET.DR PO (12:09)
[2023-10-24 12:11] LABS: Lipase 297 U/L (8-78)
[2023-10-24 12:49] VITALS: BP 160/75; PULSE 98; RESP 16; TEMP 36.8; O2SAT 93
[2023-10-24 15:22] VITALS: BP 162/83; PULSE 92; RESP 24; TEMP 36.8; O2SAT 90
[2023-10-24 15:44] LABS: Troponin-I High Sensitivity 128.5 ng/L (<3.5-17.0)
[2023-10-24] MEDS: 0.9 % Sodium Chloride 1,000 ML 999 ML IV (15:52)
[2023-10-24] MEDS: methylPREDNISolone Sod Succ 125 MG/2 ML VIAL IVPUSH (16:02)
--- NOTE | 2023-10-24 16:06 | PM.IMHP ---
History of Present Illness Date of Service: 10/24/23 Attending physician on admission: Indiana Kearney Chief Complaint: Shortness of breaths This is a 63-year-old female with multiple medical issues who presents to the emergency department with 5 day history of malaise and 2 days of wheezing. One week ago she went to a house warming [employer] and a few days afterward she began feeling poorly. She has had decreased appetite generalized weakness and has not been getting out of bed much. Over the past 2 days her breathing progressively worsened and this prompted her to seek care in the emergency room today. On arrival she was tachypneic and tachycardic. She received breathing treatments as well as oral steroids and empiric antibiotics. Her workup was significant for elevated LFTs, ANDREW with creatinine of 2.59, thrombocytopenia, chest x-ray showing mild vascular congestion and peribronchial wall thickening. She tested positive for COVID-19. Cardiac enzymes are also noted to be elevated however she denies any chest pain. She will be admitted for further management of ANDREW and COVID-19. Of note patient has history of kidney transplantation 24 years ago. She also has history of lupus for which she was hospitalized for high-dose prednisone at the beginning of the month. Review of Systems Review of Systems: Yes all other systems are reviewed and are negative Constitutional: Constitutional: Denies chills and Denies fever(s) ENT: Denies dizziness Cardiovascular: Cardiovascular: Denies chest pain and Denies palpitations Respiratory: Respiratory: Reports cough and Reports wheezing Gastrointestinal: Gastrointestinal: Denies abdominal pain, Denies nausea and Denies vomiting Neurologic: Denies dizziness Endocrine: Endocrine: Denies palpitations Allergic/Immunologic: Allergic/Immunologic: Reports wheezing COUNTS INCLUDE 234 BEDS AT THE [facility] Medical History Diabetes type 2, uncontrolled Type 2 diabetes mellitus with retinopathy Obesity due to excess calories Type 2 diabetes mellitus with diabetic polyneuropathy Chronic kidney disease Retinopathy Subclinical hypothyroidism Gout Migraine headache Lupus Essential hypertension Hyperlipidemia LDL goal <100 BMI 50.0-59.9, adult Diabetes mellitus with hyperglycemia Family History Father Colon cancer Kidney disease Mother Throat cancer COPD (chronic obstructive pulmonary disease) Alzheimer disease Paternal Grandfather Colon cancer Maternal Grandfather Lung cancer Surgical History Hx of colonoscopy Hx of adenoidectomy Hx of tonsillectomy Hx of appendectomy Hx of kidney transplant Social History Household Members: Family Alcohol intake: current Alcohol intake frequency: holidays/special occasions only Patient Tobacco Use Status: Never used Tobacco Advance Directives: No Do you have a plan to hurt others: No Plan Meds Allergies Allergy/AdvReac Type Severity Reaction Status Date / Time No Known Allergies Allergy Unknown Verified 10/24/23 10:20 Active Medications: Current Medications Sodium Chloride (Ns) 1,000 mls @ 999 mls/hr IV .Q1H1M ONE Stop: 10/24/23 16:09 Last Admin: 10/24/23 15:52 Dose: 999 mls/hr Home Medications ?Medication ?Instructions ?Recorded ?Confirmed ?Last Taken ?Type calcifediol 30 mcg capsule,24 30 mcg PO DAILY 02/21/20 09/20/21 Unknown History hr,extended release insulin syringe-needle U-100 1 mL #10 ea 02/21/20 09/20/21 Unknown History 30 gauge x 1/2 levothyroxine 50 mcg tablet 50 mcg PO DAILY 02/21/20 09/20/21 Unknown History magnesium oxide 400 mg (241.3 mg 400 mg PO DAILY 02/21/20 02/25/21 Unknown History magnesium) tablet mycophenolate mofetil 500 mg tablet 500 mg PO BID 02/21/20 09/20/21 Unknown History nortriptyline 25 mg capsule 25 mg PO BID 02/21/20 09/20/21 Unknown History prednisone 5 mg tablet 5 mg PO DAILY 02/21/20 09/20/21 Unknown History simvastatin 20 mg tablet 20 mg PO DAILY 02/21/20 09/20/21 Unknown History empagliflozin 10 mg-metformin ER 1 tab PO 05/24/20 09/20/21 Unknown History 1,000 mg tablet,extended release 24hr sumatriptan succinate 50 mg tablet 50 mg PO 02/25/21 02/25/21 Unknown History lisinopril 40 mg tablet 40 mg PO DAILY 09/17/21 09/20/21 Unknown History metoprolol succinate 50 mg 0 mg PO 09/17/21 09/20/21 Unknown History tablet,extended release 24 hr Physical Exam Vital Signs and Narrative: Vital Signs: Last Vital Signs Temp 98.3 F 10/24/23 15:22 Pulse 92 10/24/23 15:22 Resp 24 H 10/24/23 15:22 BP 162/83 H 10/24/23 15:22 Pulse Ox 90 L 10/24/23 15:22 O2 Del Method Room Air 10/24/23 15:22 BMI result Body Mass Index 55.9 Const: General: no acute distress, alert and awake Nutritional Appearance: obese Orientation/consciousness: patient oriented x3 Resp: Other: b/l wheezing Effort & Inspection: normal respiratory effort, no respiratory distress and no use of accessory muscles Cardio: Rate: regular rate GI: Inspection: No distended and Yes obesity Palpation (GI): Soft to palpation Neuro: General: patient oriented x3, moves all extremities and CN's II-XI intact bilaterally Extrem: General: Yes no pedal edema Results Labs 10/24/23 11:15 10/24/23 11:15 Labs: Laboratory Results - last 24 hr 10/24/23 10/24/23 11:15 15:11 MCV 96.5 MCH 31.0 MCHC 32.1 RDW 13.5 Plt Count 86 L D MPV 9.3 L Immature Gran % (Auto) 1.0 H Neut % (Auto) 71.3 Lymph % (Auto) 13.5 L [place] % (Auto) 13.3 H Eos % (Auto) 0.8 Baso % (Auto) 0.1 Lymph # (Auto) 1.0 L [place] # (Auto) 0.9 Eos # (Auto) 0.1 Baso # (Auto) 0.0 Abs Immat Gran (auto) 0.07 H Absolute Neuts (auto) 5.1 Absolute Nucleated RBC 0.000 Nucleated RBC % (auto) 0.0 D-Dimer High Sensitivty 407 Anion Gap 12 Estim Creat Clear Calc 30.3 Estimated GFR 19 Random Glucose 170 H Calcium 8.2 L Magnesium 1.7 Total Bilirubin 0.8 Direct Bilirubin 0.4 AST 45 H ALT 45 H Alkaline Phosphatase 92 Troponin I High Sens 154.0 H* 128.5 H* Total Protein 5.1 L Albumin 2.4 L Lipase 297 H Influenza Type A (PCR) NEGATIVE Influenza Type B (PCR) NEGATIVE RSV RNA Qual (PCR) NEGATIVE SARS-CoV-2 RNA (RT-PCR) POSITIVE A Imaging Radiologist's Impressions: Impressions Chest X-Ray 10/24/23 11:52 IMPRESSION: 1. Mild increased lung markings and peribronchial wall thickening might be small airway disease such as bronchiolitis or mild interstitial pneumonitis, no dense focal consolidation lobar pneumonia. 2. Mild vascular congestion without marika failure. Widened mediastinum, although could be vascular, cannot rule out underlying mediastinal lymphadenopathy. May consider correlation with follow-up CT scan, if not performed follow-up x-ray in one month recommended. Assessment and Plan (1) ANDREW (acute kidney injury): Status: Acute (2) Elevated troponin: Status: Acute (3) COVID-19: Status: Acute Plan This is a 63-year-old female with history of kidney transplantation in 2003, lupus, diabetes, hypertension, hyperlipidemia who presents to the emergency department with shortness of breath found to have ANDREW and COVID-19 Acute COVID-19 infection no hypoxia ANDREW In the setting of kidney transplantation Quality Stroke Does the patient have a stroke diagnosis?: No VTE Prior VTE?: No VTE Risk Level:: Medical - moderate - high VTE Device Contraindication: N/A - Device Ordered VTE Drug Contraindication: Treatment Not Indicated
[2023-10-24 17:01] VITALS: BP 184/82; PULSE 86; RESP 22; TEMP 37.1; O2SAT 96
[2023-10-24 17:13] LABS: Appearance Urine Clear; Color Urine Yellow; Glucose Urine UA 500 mg/dL (Negative); Leukocyte Esterase Urine Negative (Negative); Nitrite Urine Negative (Negative); Specific Gravity - Urine 1.025 (1.005-1.025); UMIC TRIGGER UACC YES; Urine Blood Moderate (2+) (Negative); Urine Ketones Trace mg/dL (Negative); Urine Protein >=1000 (4+) mg/dL (Neg-Trace)
[2023-10-24 17:14] LABS: Glucose, Whole Blood 299 mg/dL (60-115)
[2023-10-24 17:34] LABS: B Type Natriuretic Peptide 62 pg/mL (<100)
--- NOTE | 2023-10-24 17:44 | PC.NURSE ---
per MD Mandujano, per MD cabral rec transfer to [facility] as pt had kidney transplant 20 years ago and req higher level of care- pt to be direct admit to [id number]
--- NOTE | 2023-10-24 17:49 | PHA.MEDREC ---
Pharmacy Consult ? Medication Reconciliation Pharmacy has completed the medication reconciliation. Pt takes 130 units Tresiba;
[2023-10-24 17:57] LABS: Bacteria Urine None Seen (None Seen); UACC Culture Trigger YES
--- NOTE | 2023-10-24 18:36 | PC.NURSE ---
attempted to call [facility]- Nurse is not available to take call x2- provided call back number to nurse to call when she is available. pt transferred via james Shayla
[2023-10-24 18:37] VITALS: BP 184/82; PULSE 86; RESP 22; TEMP 37.1; O2SAT 96
--- NOTE | 2023-10-24 21:33 | P.PNNP_ITS ---
Subjective Subjective Date of Service: 10/24/23 Principal diagnosis: ESRD, S/P DDTX ( 2005), H/O SLE, COVID Interval history: RTANE patient consulted Case d/w Hospitalist in deail and rec we xfer to [facility] givne risk of signif compl from COVID and need to review IS regiment approach RTANE will see seen at [facility] re kidney xplant management Physical Exam 2 Vital Signs: Vital Signs: Last Vital Signs Temp 98.7 F 10/24/23 18:37 Pulse 86 10/24/23 18:37 Resp 22 H 10/24/23 18:37 BP 184/82 H 10/24/23 18:37 Pulse Ox 96 10/24/23 18:37 O2 Del Method Room Air 10/24/23 18:37 BMI result Body Mass Index 55.9 Objective Data Labs 10/24/23 11:15 10/24/23 11:15 Labs: Laboratory Results - last 24 hr 10/24/23 10/24/23 10/24/23 11:15 15:11 17:01 WBC 7.1 RBC 3.42 L Hgb 10.6 L Hct 33.0 L MCV 96.5 MCH 31.0 MCHC 32.1 RDW 13.5 Plt Count 86 L D MPV 9.3 L Immature Gran % (Auto) 1.0 H Neut % (Auto) 71.3 Lymph % (Auto) 13.5 L [place] % (Auto) 13.3 H Eos % (Auto) 0.8 Baso % (Auto) 0.1 Lymph # (Auto) 1.0 L [place] # (Auto) 0.9 Eos # (Auto) 0.1 Baso # (Auto) 0.0 Abs Immat Gran (auto) 0.07 H Absolute Neuts (auto) 5.1 Absolute Nucleated RBC 0.000 Nucleated RBC % (auto) 0.0 D-Dimer High Sensitivty 407 Sodium 140 Potassium 4.1 Chloride 106 Carbon Dioxide 26 Anion Gap 12 BUN 26 H Creatinine 2.59 H Estim Creat Clear Calc 30.3 Estimated GFR 19 POC Glucose Random Glucose 170 H Calcium 8.2 L Magnesium 1.7 Total Bilirubin 0.8 Direct Bilirubin 0.4 AST 45 H ALT 45 H Alkaline Phosphatase 92 Troponin I High Sens 154.0 H* 128.5 H* B-Natriuretic Peptide 62 Total Protein 5.1 L Albumin 2.4 L Lipase 297 H Urine Color Yellow Urine Appearance Clear Urine pH 6.0 Ur Specific [place] 1.025 Urine Protein >=1000 (4+) H Urine Glucose (UA) 500 H Urine Ketones Trace Urine Blood Moderate (2+) H Urine Nitrite Negative Ur Leukocyte Esterase Negative Urine RBC 6-10 H Urine WBC 6-10 H Ur Squamous Epith Cells 3-5 Urine Bacteria None Seen Hyaline Casts 11-20 Influenza Type A (PCR) NEGATIVE Influenza Type B (PCR) NEGATIVE RSV RNA Qual (PCR) NEGATIVE SARS-CoV-2 RNA (RT-PCR) POSITIVE A 10/24/23 17:11 WBC RBC Hgb Hct MCV MCH MCHC RDW Plt Count MPV Immature Gran % (Auto) Neut % (Auto) Lymph % (Auto) [place] % (Auto) Eos % (Auto) Baso % (Auto) Lymph # (Auto) [place] # (Auto) Eos # (Auto) Baso # (Auto) Abs Immat Gran (auto) Absolute Neuts (auto) Absolute Nucleated RBC Nucleated RBC % (auto) D-Dimer High Sensitivty Sodium Potassium Chloride Carbon Dioxide Anion Gap BUN Creatinine Estim Creat Clear Calc Estimated GFR POC Glucose 299 H Random Glucose Calcium Magnesium Total Bilirubin Direct Bilirubin AST ALT Alkaline Phosphatase Troponin I High Sens B-Natriuretic Peptide Total Protein Albumin Lipase Urine Color Urine Appearance Urine pH Ur Specific [place] Urine Protein Urine Glucose (UA) Urine Ketones Urine Blood Urine Nitrite Ur Leukocyte Esterase Urine RBC Urine WBC Ur Squamous Epith Cells Urine Bacteria Hyaline Casts Influenza Type A (PCR) Influenza Type B (PCR) RSV RNA Qual (PCR) SARS-CoV-2 RNA (RT-PCR) Procedures Date of Service Date of Service: 10/24/23 Assessment & Plan Time Spent With Patient Time: Total time managing care of this patient today ____ minutes.
== END 2023-10-25 00:54 | disposition short-term general hospital (02) ==
PROVIDERS: Physician Assistant Medical; Emergency Provider Emergency Medicine; PCP Internal Medicine
DX: U07.1 COVID-19 (principal); J20.8 Acute bronchitis due to other specified organisms; E11.22 Type 2 diabetes mellitus with diabetic chronic kidney disease; I12.0 Hypertensive chronic kidney disease with stage 5 chronic kidney disease or end stage renal disease; N18.6 End stage renal disease; N17.9 Acute kidney failure, unspecified; E86.0 Dehydration; R79.89 Other specified abnormal findings of blood chemistry; R05.9 Cough, unspecified; R06.02 Shortness of breath; Z94.0 Kidney transplant status; Z79.899 Other long term (current) drug therapy; Z79.4 Long term (current) use of insulin; Z79.02 Long term (current) use of antithrombotics/antiplatelets; Z79.85 Long-term (current) use of injectable non-insulin antidiabetic drugs
CPT/HCPCS: 0241U; 36415; 71046; 80048; 80076; 81001; 82947; 83690; 83735; 83880; 84484; 85025; 85379; 87086; 93005; 94640; 96361; 96374; 99285; J2919

== ENCOUNTER → 2023-10-24 10:55 | Outpatient (BNV) | payer OTHER, MEDICAID, SELFPAY | PROVIDERS: Emergency Provider Emergency Medicine; PCP Internal Medicine; Visit Provider Internal Medicine Cardiovascular Disease | DX: I44.4 Left anterior fascicular block (principal) | CPT/HCPCS: 93010 ==

== ENCOUNTER 2023-12-23 14:00 | Outpatient (AMB) | payer OTHER, MEDICAID, SELFPAY ==
--- OUTSIDE RECORDS SUMMARY | 2023-12-23 14:01 | XMS_ITS | Continuity of Care Document ---
Author Organization [facility] ter Address [address] [place] [id number]- Care Team Providers Care Cartography Technician Name Role Phone Amaya MITCHELL, Davey Olmstead Primary Care Physician [place] [facility] [place] 10/24/23 - 10/28/[address] [id number] Discharge Disposition: A-D/C Home Attending Physician: Archie MITCHELL, Mk Dyer Admitting Physician: Emily Perez MD, Bg Pate Referring Physician: Not on Staff, Referring MD Allergies, Adverse Reactions, Alerts No Known Allergies Immunizations Given and Recorded Vaccine Date Status Refusal Reason SARS-CoV-2 (COVID-19) mRNA BNT-162b2 vac 01/10/21 Recorded Medications Acetaminophen Tablet 650 mg, Tablet, By Mouth, Every 4 hours, PRN for Pain , Mild, Temperature Greater than 100.5, Routine, 10/24/23 20:37:00 EDT Start Date: 10/24/23 Stop Date: 10/29/23 Status: Discontinued belatacept = 5 mg/kg, IV Infusion, 0 Refills, Maintenance, 02/10/21 9:21:00 EDT, Partial fill upon patient request if the prescription is for a schedule II opioid drug. Start Date: 02/10/21 Status: Ordered cyclobenzaprine 10 mg oral tablet 10 mg, 1, tablet, By Mouth, 3 times a day, PRN, # 30 tablet, Refills 0, Maintenance, for spasm, 10/25/23 2:52:00 EDT, Partial fill upon patient request if the prescription is for a schedule II opioiddrug. Start Date: 10/25/23 Status: Ordered doxazosin 2 mg oral tablet 4 mg, Tablet, By Mouth, 10/28/23 9:00:00 EDT Start Date: 10/28/23 Stop Date: 10/28/23 Status: Completed doxazosin 4 mg oral tablet 1 tablet = 4 mg, By Mouth, Daily, # 30 tablet, 0 Refills, Maintenance, 10/25/23 2:51:00 EDT, Tablet, Partial fill upon patient request if the prescription is for a schedule II opioid drug. Start Date: 10/25/23 Status: Ordered insulin aspart 100 units/mL subcutaneous solution 7-19 units, Subcutaneous Injection, 3 times a day before meals, 100 - 149 7 units 150 - 199 9 - 249 11 units 250 - 299 13 units 300 - 349 15 units 350 - 399 17 units 400 - 449 19 units, # 15 mL, 0 Refills, Maintenan... Start Date: 10/28/23 Status: Ordered insulin glargine 100 units/mL subcutaneous solution 0.3 mL = 30 units, Subcutaneous Injection, Daily at bedtime, # 15 mL, 0 Refills, Maintenance, 10/28/23 14:56:00 EDT, Injection, [facility] #[id number], Partial fill upon patient request if the prescription is for a schedule II opioid drug., 157,... Start Date: 10/28/23 Status: Ordered levothyroxine 0.05 mg oral tablet 1 tablet = 50 mcg, By Mouth, Daily, # 30 tablet, 0 Refills, Maintenance, 10/25/23 2:51:00 EDT, Tablet, Partial fill upon patient request if the prescription is for a schedule II opioid drug. Start Date: 10/25/23 Status: Ordered metoprolol 100 mg oral tablet, extended release 200 mg, XL Tablet, By Mouth, 10/28/23 9:00:00 EDT Start Date: 10/28/23 Stop Date: 10/28/23 Status: Completed metoprolol 200 mg oral tablet, extended release 1 tablet = 200 mg, By Mouth, Daily, # 30 tablet, 0 Refills, Maintenance, 10/25/23 2:49:00 EDT, ER Tablet, Partial fill upon patient request if the prescription is for a schedule II opioid drug. Start Date: 10/25/23 Status: Ordered mycophenolate mofetil 500 mg oral tablet 3 tablet = 1,500 mg, By Mouth, 2 times a day, # 180 tablet, 0 Refills, Maintenance, 10/25/23 2:49:00 EDT, Tablet, Partial fill upon patient request if the prescription is for a schedule II opioid drug. Start Date: 10/25/23 Status: Ordered nortriptyline 25 mg oral capsule 25 mg, 1, capsule, By Mouth, 2 times a day, # 270 capsule, Refills 0, Maintenance, 12/27/19 10:38:00 EDT Start Date: 12/27/19 Status: Ordered predniSONE 5 mg oral tablet See Instructions, currently on a long taper with her nephrology office (40mg for 2 weeks and then down titer), 0 Refills, Maintenance, 09/28/18 14:29:57 EDT Start Date: 09/28/18 Status: Ordered PriLOSEC OTC 20 mg oral delayed release tablet HYDRALhydraLIZINE, By Mouth, Daily, # 30 tablet, 0 Refills, Maintenance, 08/31/23 10:25:00 EDT, CR Tablet, Partial fill upon patient request if the prescription is for a schedule II opioid drug. Start Date: 08/31/23 Status: Ordered Procardia XL 30 mg oral tablet, extended release 30 mg, By Mouth, Daily, # 30 each, Refills 0, Tot. Refills 0, Maintenance, 10/28/23 14:58:00 EDT, Route to Pharmacy Electronically, [facility] #[id number], Partial fill upon patient request if the prescription is for a schedule II opioid drug., 1... Start Date: 10/28/23 Status: Ordered Rayaldee 30 mcg oral capsule, extended release See Instructions, TAKE 1 CAPSULE BY MOUTH EVERY DAY, # 90 capsule, 0 Refills, Maintenance, 10/07/2316:51:00 EDT, [facility] #[id number], 158, cm, 02/10/21 10:49:00 EDT, Height, 131.2, kg, 11/24/21 9:06:00 EDT, Dry Weight Start Date: 10/07/22 Status: Ordered Rayaldee 30 mcg oral capsule, extended release See Instructions, TAKE 1 CAPSULE BY MOUTH EVERY DAY, # 90 capsule, 10 Refills, Maintenance, 10/07/22 17:51:00 EDT, [facility] #[id number], 158, cm, 02/10/21 10:49:00 EDT, Height, 131.2, kg, 11/24/21 9:06:00 EDT, Dry Weight Start Date: 10/07/22 Status: Ordered simvastatin 20 mg oral tablet 20 mg, 1, tablet, By Mouth, Daily at bedtime, # 30 tablet, Refills 0, Maintenance, 10/25/23 2:50:00EDT, Partial fill upon patient request if the prescription is for a schedule II opioid drug. Start Date: 10/25/23 Status: Ordered Trulicity Pen 1.5 mg/0.5 mL subcutaneous solution = 1.5 mg, Subcutaneous Injection, Every Thursday Start Date: 09/28/18 Status: Ordered Problem List Condition Confirmation Course Effective Dates Status Health St atus Informant Severe obesity Confirmed Active Results Radiology Reports * Exam Date Time Procedure Performing Provider Status 10/25/23 7:11 AM Chest Portable Neeta Samayoa; Auth (Verified) Notes: (Chest Portable) Reason For Exam: Shortness of Breath RESULT: Chest Portable Chest Portable Reason: Shortness of Breath; Clinical Question(s): Pneumonia COMPARISON: None. FINDINGS: LINES AND TUBES: None. LUNGS AND PLEURA: Mild opacity at the right midlung, likely in part exaggerated by rightward rotation of the patient. No pleural effusion. No pneumothorax. HEART, MEDIASTINUM AND MILAN: Cardiomegaly. Widening of the upper mediastinum without displacement of the trachea could relate to mediastinal fat. BONES AND SOFT TISSUES: No acute abnormality. IMPRESSION: Mild opacity at the right midlung. This can represent developing infection. WSN: [id number] Ordering Physician: Keiry Brink Dictated By: Gregoria Galloway MD Dictated Date/Time: 10/25/23 7:49 am Reviewed By: Gregoria Galloway MD Signed By: Gregoria Galloway MD Signed Date/Time: 10/25/23 7:49 am Transcribed By: DADA Transcribed Date/Time: 10/25/23 7:48 am Vital Signs Most recent to oldest [Reference Range]: 1 2 3 Height 157 cm (10/27/23 2:48 PM) 157 cm (10/24/23 9:23 PM) Weight 144.1 kg (10/28/23 7:55 AM) 142 kg (10/24/23 9:23 PM) Oxygen Saturation [94-100 %] 96 % (10/28/23 11:00 AM) 94 % (10/28/23 7:00 AM) 96 % (10/28/23 4:00 AM) Pulse Rate [55-90 bpm] 72 bpm (10/28/23 11:00 AM) 98 bpm *H* (10/28/23 10:21 AM) 67 bpm (10/28/23 7:00 AM) Body Mass Index [18.5-24.99 kg/m2] 57.61 kg/m2 *>HHI* (10/24/23 9:23 PM) Blood Pressure [90-138/55-84 mm Hg] 137/67mm Hg (10/28/23 11:00 AM) 142/67mm Hg *H* (10/28/23 10:21 AM) 142/67mm Hg *H* (10/28/23 10:21 AM) Respiratory Rate [16-30 br/min] 20 br/min (10/28/23 11:00 AM) 20 br/min (10/28/23 7:00 AM) 20 br/min (10/28/23 5:11 AM) Temperature [96.8-100.4 DegF] 98.0 DegF (10/28/23 11:00 AM) 97.6 DegF (10/28/23 7:00 AM) 97.6 DegF (10/28/23 4:00 AM) Mode of Delivery (Oxygen) Room air (10/28/23 11:00 AM) Room air (10/28/23 7:00 AM) Room air (10/28/23 4:00 AM) Blood pressure sites Arm, right (10/28/23 11:00 AM) Arm, right (10/28/23 7:00 AM) Arm, right (10/28/23 4:00 AM) Temperature Route Oral (10/28/23 11:00 AM) Oral (10/28/23 7:00 AM) Oral (10/28/23 4:00 AM) Dry Weight 142 kg (10/24/23 9:23 PM) Weight Obtained Via Bed scale (10/28/23 7:55 AM) Admission evaluation note * Keena MITCHELL, Keiry Pate: MODIFY, PERFORM Event Display: Admission Note Authored Date: [id number] Patient: ??CARISA MACK ? Age:??63 Years?Sex:??Female?:??1960?? Chief Complaint/Reason for Consultation Transfer from [facility] as per??nephrology recommendations. History of Present Illness 63-year-old female patient who presents to our facility as a transfer from [facility] emergency department as per nephrology recommendations.?? She has a past medical history of end-stage renaldisease s/p renal transplant in 1999 secondary to lupus (currently on prednisone, CellCept, and Belatacept infusion), essential hypertension, insulin-dependent diabetes mellitus who presents to [facility] for evaluation of shortness of breath for the past few days.?? She does positive for COVID-19.?? Chest x-ray showed possible bronchiolitis.?? She was given Solu-Medrol 120 mg and prednisone 60 mg.?? Case was discussed with Dr. Macias over the phone who requested transfer to [facility].?? Upon arrival to our facility, she was hemodynamically stable, systolic pressure was slightly elevated 150s, maintaining saturation at 94% on room air.?? She reports a dry hacking cough associated with mild shortness of breath for the past few days.?? She also reported remarkable decrease of p.o. intake over the past few days.?? She denies chest pain, dizziness, headache, body aches, or any other associate symptoms. Of note, She underwent allograft biopsy on 09/02/2023 with no evidence of rejection however it showedclass IV lupus nephritis, moderate glomerulitis, most likely due to being complex disease, no PTC or vasculitis with 10.5% focal global glomerulosclerosis, focal tubular atrophy (10% of cortex).?? SLE markers were negative.?? Therefore, CellCept increased to 1.5 g twice daily.?? She also received IV Solu-Medrol 1 g x 3 days followed by prednisone taper and she was advised to stop hydralazine since it can cause drug-induced lupus). Review of Systems A full review of systems was completed and is otherwise negative except as mentioned in history of present illness. Objective Measurements?? Height: 157 cm (10/24/23) Weight: 142 kg (10/24/23) Dry Weight: 142 kg (10/24/23) Body Mass Index:??57.61 kg/m2??Critical (10/24/23) ? Vital Signs?? Temperature: 97.7 DegF (10/24/23 21:23:00) Temperature Route: Oral (10/24/23 21:23:00) Pulse Rate: 84 bpm (10/24/23 21:23:00) Respiratory Rate: 18 br/min (10/24/23 21:23:00) Systolic Blood Pressure:??170 mm Hg??High (10/24/23 21:23:00) Diastolic Blood Pressure: 83 mm Hg (10/24/23 21:23:00) Blood pressure sites: Arm, right (10/24/23 21:23:00) Mean Arterial Pressure: 112 mm Hg (10/24/23 21:23:00) Pulse Pressure: 87 mm Hg (10/24/23 21:23:00) Early Warning Score: 2 (10/24/23 21:28:47) ? Intake/Output? No Data Available ? Physical Exam General Appearance: The patient is in NAD. Head: atraumatic EENT: MMM, no scleral icterus Cardiovascular: RRR no MRG Respiratory:?? Breath sounds clear to auscultation bilaterally. No wheezing. room air. GI: Soft. Nontender and nondistended. Normal bowel sounds present throughout abdomen. MS:?? No edema or erythema in the lower extremities. Peripheral sensation intact. Skin: warm, dry, no rashes Neuro:?? No slurred speech.?? Patient seen moving their upper and lower extremities independently. Psych: calm Lines: Peripheral IV in place. Assessment/Plan Diagnoses ANDREW (acute kidney injury) ??(N17.9) Acid reflux ??(K21.9) CKD (chronic kidney disease) ??(N18.9) COVID-19 ??(U07.1) Dyslipidemia ??(E78.5) Essential hypertension ??(I10) History of end stage renal disease ??(Z87.448) History of lupus nephritis ??(Z87.39) History of renal transplant ??(Z94.0) History of systemic lupus erythematosus (SLE) ??(M32.9) Hypothyroidism ??(E03.9) Immunosuppression ??(D84.9) Lupus nephritis ??(M32.14) Type 2 diabetes mellitus??(E11.9): ?? COVID-19 (U07.1):??Patient denies fever, chills,??or productive cough or any other symptoms suggestive of pneumonia. Will hold off??antibiotics. She is maintaining saturation above 90% on room air. Her symptoms have been going on for the past few days. Respiratory status is stable. She is??maintaining saturation above 90% on room air. Will hold off further??steroids other than her chronic prednisone. ID consultation for??possible??immunotherapy given??immunosuppressed status.??However today is??day??4 since her symptoms??started and??respiratory status is pretty stable??with very good sats. I will leave the decision to ID.??Meanwhile, continue supportive management Continue enhanced respiratory precautions ?? ANDREW (acute kidney injury) (N17.9) ?Grouped with??CKD (chronic kidney disease) (N18.9),??History of end stage renal disease(Z87.448),??History of renal transplant (Z94.0),??Immunosuppression (D84.9),??History of lupus nephritis (Z87.39),??Lupus nephritis (M32.14),??History of systemic lupus erythematosus (SLE) (M32.9) ? Patient with respect history of end-stage renal disease secondary to lupus nephritis s/prenal transplant??(currently on prednisone, CellCept, and Belatacept infusion) She was found to have??acute kidney injury with creatinine of 2.4??(baseline creatinine 1.8-2.0). Patient follows up with??nephrology team.??And she just had??allograft biopsy on 09/02/2023 with no evidence of rejection however it showed class IV lupus nephritis, moderate glomerulitis, most likely due to being complex disease, no PTC or vasculitis with 10.5% focal global glomerulosclerosis, focaltubular atrophy (10% of cortex).??SLE markers were negative.??Therefore, CellCept increased to 1.5 g twice daily.??She also received IV Solu-Medrol 1 g x 3 days followed by prednisone taper and she was advised to stop hydralazine since it can cause drug-induced lupus). She reports significant decrease of p.o. intake in the past few days. Unclear if it is related to??decreased p.o. intake. Will obtain??urine lites??and consult nephrology. Gentle IV fluids. Continue to monitor kidney function.? Type 2 diabetes mellitus??(E11.9): On glipizide, Trulicity, and Tresiba once a day.?? With short-acting insulin 3 times daily Resume long-acting??with insulin sliding scale coverage. Continue to monitor [id number] glucose 3 times in the bedtime. Hypoglycemia protocol. ?? Essential hypertension (I10):?? She is on lisinopril 40 mg twice daily, hydralazine 50 twice daily, metoprolol 200 mg daily. Hydralazine was stopped recently due to concern of drug-induced lupus and started on doxazosin 4 mgdaily. Will resume??metoprolol,??and doxazosin. Will hold off??hydralazine??due to concern of drug-induced lupus??on lisinopril??given ANDREW. Calcium channel yg may be added if??more blood pressure control as needed. ?? Acid reflux (K21.9):??Resume PPI ?? Hypothyroidism (E03.9):??Resume levothyroxine ?? Dyslipidemia (E78.5):??Resume simvastatin ? VTE Prophylaxis:??low risk ?VTE Prophylaxis Assessment:??Risk Level documented as Low Risk ?? Discharge Planning:? Code Status:??Full code ?Order Code Status:??Code Status Ordered ? Histories Allergies Allergies ?(Active and Proposed Allergies Only) NKA? (Severity: Unknown severity, Onset: Unknown) ? Past Medical History/Problem List Active Problems(1) Severe obesity ? Past Surgical History No surgery history documented. ? Social History No social history documented. ? Family History No Family History documented. ? Medications Home Medications Allopurinol (allopurinol 100 mg oral tablet)?100?Milligram?1?tablet?By Mouth?Daily belatacept?5?Milligrams/Kilogram?IV Infusion Calcifediol (Rayaldee 30 mcg oral capsule, extended release)?See Instructions?TAKE 1 CAPSULE BY MOUTH EVERY DAY Calcifediol (Rayaldee 30 mcg oral capsule, extended release)?See Instructions?TAKE 1 CAPSULE BY MOUTH EVERY DAY dulaglutide (Trulicity Pen 1.5 mg/0.5 mL subcutaneous solution)?1.5?Milligram?SubcutaneousInjection?Every Thursday empagliflozin-metFORMIN (Synjardy 5 mg-1000 mg oral tablet)?1?tab(s)?By Mouth?Daily?with meals Furosemide (furosemide 20 mg oral tablet)?20?Milligram?1?tablet?By Mouth?Daily?as needed?leg swelling?Other GlipiZIDE (glipizide 2.5 mg oral tablet)?1?tab(s)?2.5?Milligram?By Mouth?Daily hydrALAZINE?50?Milligram Insulin Aspart (NovoLOG 100 units/mL subcutaneous solution)?20?unit(s)?Subcutaneous Injection?3 times a day before meals insulin degludec (Tresiba FlexTouch 200 units/mL subcutaneous solution)?100?unit(s)?Subcutaneous Injection?Daily?rotate injection sites Levothyroxine (levothyroxine 0.025 mg oral tablet)?1?tab(s)?25?Microgram?By Mouth?Daily Lisinopril (lisinopril 10 mg oral tablet)?10?Milligram?1?tablet?By Mouth?Daily Metoprolol (metoprolol 50 mg oral tablet)?50?Milligram?1?tablet?By Mouth?Daily Mycophenolate Mofetil (CellCept 500 mg oral tablet)?1?tab(s)?500?Milligram?By Mouth?2 times a day Nortriptyline (nortriptyline 25 mg oral capsule)?25?Milligram?1?capsule?By Mouth?2 times a day Omeprazole (PriLOSEC OTC 20 mg oral delayed release tablet)?HYDRALhydraLIZINE?By Mouth?Daily Oxycodone / Acetaminophen (Percocet 5 mg-325 mg oral tablet)?1?tab(s)?By Mouth?Every 6 hours?as needed?as needed for pain PredniSONE (predniSONE 5 mg oral tablet)?1?tab(s)?5?Milligram?By Mouth?Daily Simvastatin (simvastatin 10 mg oral tablet)?10?Milligram?1?tablet?By Mouth?Daily in AM ? Results Recent Labs CHEM GENERAL Glucose, POC 312 mg/dL (High)?? 10/24/2023 20:00 ? Cardiology * Event Display: Cardiac Rhythm Strips Authored Date: Hospital Progress note * Berlin Shin MD: SIGN, VERIFY, PERFORM Event Display: Progress Note Hospital Authored Date: [id number] Patient: CARISA MACK Age: 63 years Sex: Female : 1960 Associated Diagnoses: None Author: Berlin Shin MD Overnight Events & Current Issues Seen and exaamined, events noted Cont with resp sxms but cont to improve SCr remains stuck at 3.1 today DSA test NEG Prelim kid Bx shows no evid of rejection based on LM, glom changes sugg of Xplant glomopthy vs SLE some tubular changes may reflect COVID cytokine tubular injury Review of Systems Review of Systems Respiratory: dyspnea improved. Physical Examination Vital Signs Vitals : VITALS 10/28/2023 11:00 EDT Temperature 98.0 DegF Temperature Route Oral Pulse Rate 72 bpm Respiratory Rate 20 br/min Systolic Blood Pressure 137 mm Hg Diastolic Blood Pressure 67 mm Hg Blood pressure sites Arm, right Pulse Pressure 70 mm Hg Oxygen Saturation 96 % . Weight : Weight lb/oz 10/24/2023 21:23 EDT Weight lb/oz 313 lb 1 oz . BMI : Body Mass Index 10/24/2023 21:23 EDT Body Mass Index 57.61 kg/m2 >HHI . General Appearance NAD. HEENT Moist mucous membranes. Respiratory Lungs: wheezes, no rhonchi. Cardiac Rhythms: RRR. Abdomen/GI Abdomen: soft, obese. Extremities Edema. Results Review General results Today's results : Results 10/28/2023 4:38 EDT Hold Lavender Top SPECIMEN DISCARDED AFTER 24 HOURS. Sodium 139 mmol/L Potassium 4.5 mmol/L Chloride 107 mmol/L Bicarbonate Level 22 mmol/L Anion Gap 10 BUN 59 mg/dL H Creatinine-Blood 3.10 mg/dL H Estimated GFR Creatinine 16 ML/MIN/1.73 M2 Mycophenolate Level 1.0 ??g/mL L Impression and Plan COMPREHENSIVE PLAN 63-year-old ESRD, lupus patient, status post donor transplant 24 years ago in the year 1999, admitted with acute COVID infection with respiratory symptoms on the backdrop of recent class 4 lupus nephritis in her transplant kidney on biopsy several months ago, status post pulse Solu-Medrol and increasing CellCept therapy. 1. ANDREW: most c/w COIVD cytokine tubular injury; other poss such as acute rejection ofr flare of SLENephritis seem less likely Good news is SCr 3.4--> 3.1 and remains 3.1 today DSA neg goes agaisnt [facility] s/p kidney Bx 10/26 Prelim kid Bx shows no evid of rejection based on LM, glom changes sugg of Xplant glomopthy vs SLE some tubular changes may reflect COVID cytokine tubular injury BSL SCr 1.8-2.0 2. ESRD DDTx year 1999 maintained on Belatacept ( q 28 days) /cellcept/pred due for Bel infusion 10/25 as outpt and will recieve today 3. COVID infection with resp sxms and CXR abnl; on ID protocol remdesivir/pred 4. HTN: better but need to avoid hypotensive events 5. BS labile; incr on pred 6. Obesity 7. Nephrotic Syndrome: d/t SLWE class IV GN on previous Bx 2 months ago and ques worse now with COVID REC: Belatwacept infusoin today ( dosing based on WT and d/w [employer] --Sergey); cont cellcept 1500 bid; cont COVID Tx as noted and taper STDs as d/w hospitalist and PTto eventual get back to 5 mg qd dosing Ok to d/c home today --I will arrange f/u with me next wk as outpt I am avail by [facility]Tex I D/W [employer] Pharmacist the IS treatment ( Sergey) our approach which she agreed with * Kassie Jo RN: PERFORM, SIGN, VERIFY Event Display: Progress Note Hospital Authored Date: Patient: CARISA MACK Age: 63 years Sex: Female : 1960 Associated Diagnoses: None Author: Kassie Jo RN Findings Problem Related to Alteration in Endocrine : Alteration in Endocrine Function/new 10/28/2023 14:00 EDT Alteration in Endocrine Related to Other: ANDREW Goals & Outcomes, Endocrine Pt will receive/maintain adequate nutrition status, Pt will maintain adequate GI/ function appropriate for pt Interventions, Endocrine Monitor & document daily weight BH Goals/Interventions, Endocrine Yes Endocrine, Problem Start 10/28/2023 14:53 Reviewed Plan with, Endocrine Patient Patient Progression, Endocrine Pt progressing according to plan . Nursing Data Vital Signs : VITAL SIGNS SECTION 10/28/2023 11:00 EDT Temperature 98.0 DegF Temperature Route Oral Pulse Rate 72 bpm Respiratory Rate 20 br/min Systolic Blood Pressure 137 mm Hg Diastolic Blood Pressure 67 mm Hg Blood pressure sites Arm, right Pulse Pressure 70 mm Hg Oxygen Saturation 96 % Mode of Delivery (Oxygen) Room air . Narrative/Incidental Patient alert and oriented sitting on side of bed. Patient would hold stomach when laughing due to kidney biopsy access area. Patient had no cough, felt well enough to go home . Patient was in good spirits and very social. Patient advocated well for herself. Patient stated she felt better today than yesterday. Patient ate well, and utilized the bathroom independently. Plus 2 edema to bilateral lower extremities. For further information see biophysical data.. * Tessie MITCHELL, Aldair: PERFORM Event Display: Progress Note Hospital Authored Date: Patient: ??CARISA MACK ? Age:??63 Years?Sex:??Female?:??1960?? 63-year-old female with past medical history of type 2 diabetes mellitus, ESRD s/p renal transplantin 1999 currently on prednisone, CellCept, belatacept, hypertension, hypothyroidism currently admitted to the hospital for management of COVID-19 pneumonia and worsening renal function. ?? Current Inpatient glycemic history and management: -Basal insulin:??Lantus 30 units twice daily -Prandial insulin: Humalog 20 units starting at blood sugar 100mg/dL with interval increase of 5 units for every 50mg/dL, 3 times daily AC -Diet:??60 g carbohydrates per meal ?? Glycemic trends reviewed: Patient has blood sugars ranging between??40-122mg/dL in the past 24 hours. Her??FBS this morning was 48mg/dL from 122mg/dL yesterday. She received a total of 75U of Lantus and??no Humalog in the past 24 hours. ?? Type 2 diabetes mellitus ?Decrease Lantus to 30 units daily. ??Next dose to be given??tonight. ??? Decrease Humalog scale to start at 7 units for blood sugar 100mg/dL??with interval increase of 2 units for every 50mg/dL,??3 times daily AC. ??Hold for NPO. ?? Plan of care discussed with Dr. Chu, addendum to follow. ?? Aldair Kurtz MD PGY V Endocrinology, Diabetes, & Metabolism?? * Kimberley MITCHELL, Jax: PERFORM Event Display: Progress Note Hospital Authored Date: ??I have discussed the case and its management with the fellow and agree with the findings and ronald documented in the fellow???s note.?? Consult note * Shaikh PAULA, Can: PERFORM, MODIFY Event Display: Consultation Note Authored Date: Patient: ??CARISA MACK ? Age:??63 Years?Sex:??Female?:??1960?? Chief Complaint Covid Infection Reason for Consultation Reason for consultation: DM-II Consult requesting service: [facility] Medicine Consult requesting physician: Sergio Madrigal MD History of Present Illness This is 63-year-old female??with PMHx of end-stage renal disease s/p renal transplant in 1999 secondary to lupus (currently on prednisone, CellCept, and Belatacept infusion), essential hypertension, hypothyroidism, insulin-dependent diabetes mellitus who??was admitted for worsening renal functions and Covid Infection.??Chest x-ray showed possible bronchiolitis.?? 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 ??While int hospital she has been started on prednisone 40 mg daily. ?? I spoke to the patient on the phone. ??Patient reports that she but metformin has been recently discontinued due to??worsening kidney functions.?She was on Trulicity 3 mg q. weekly but she has notbeen able to get medication??and the last dose of Trulicity was few months ago. ??Patient was started on glipizide 2.5 mg daily.?? Patient also reports taking Tresiba 130??units daily??and??NovoLog??scale 5 to 20 units with each meal 3 times a day.?? Patient reported her blood sugar levels were well-controlled before??she was started on steroids??with hemoglobin C in??the 5.4 range.?? Patient [facility]follow[facility] mixer [facility] but over the last??few years, she has beenfollowed by her primary care physician for diabetes management ?? In the hospital patient has been started on Levemir??120 units once a day with??lispro correction scale.?? Over the last 24 hours, patient has received 172 units of insulin ? Review of Systems A 14 point comprehensive ROS was performed and positive findings are mentioned in the HPI.?? Physical Exam Vitals & Measurements T:??97.6?F?? TMIN:??97.6?F?? TMAX:??98.3?F?? HR:??73??(Monitored)?? RR:??20?? BP:??140/80?? SpO2:??93%?? Patient was not examined.?? She is in respiratory isolation Assessment/Plan Briefly this is a 63 years old female with a longstanding history of diabetes mellitus type 2??currently admitted to the hospital??due to COVID infection and ANDREW. ??Patient is??receiving??prednisone??40 mg daily.?? Previously she received 3 days of IV??Solu-Medrol 1 g??about 6 weeks ago and??was lien higher dose of prednisone to??slow down the effect of lupus on her transplanted kidney. ??Patientis currently admitted to hospital for COVID infection and is on??prednisone 40 mg daily.?? Patient continues to have significant episodes of hyperglycemia in the hospital. ??She??received??172 units of insulin in the last 24 hours. ??She is currently ordered for Levemir 120 units once a day and lispro 4 units for blood sugar more than 100 with addition of 2 unit for every 50 mg/day clinical bloodsugar, 3 times a day.?? Patient used to be on Trulicity 3 mg??once a week??but she has not been able to get Trulicity because of the??short supply.?? Metformin was discontinued recently due to worsening kidney functions. ?? Considering her high insulin requirements and high-dose of prednisone, will make following recommendations: ?? Adjust insulin to 1.3 units/kg ?? 1. ??Discontinue Levemir and start Lantus 45 units twice a day 2. ??Adjust lispro to start with 20 units for blood sugar more than 100 with addition of 5 unit forevery 50 mg deciliter??increase blood sugar 3 times a day, hold for NPO 3. ??Check blood sugar levels 4 times a day or more frequently if the patient is hypo or hyperglycemic ?? Thank you for consulting endocrine team. ??Endocrine will continue to follow this patient with you and make further recommendations based on patient's blood sugar levels. ?? Case d/w ??iKmberley ?? Can Charlton MD Endocrinology Fellow PGY-5 ?? Total Time Spent Activities performed in this time include chart review, obtaining / reviewing history, performing amedically necessary evaluation, documentation and Communication with other health care providers including medical decision making of Moderate Complexity (45-59 minutes for NEW patient) Problem List/Past Medical History Ongoing Severe obesity Medications Inpatient Acetaminophen Tablet, 650 mg, By Mouth, Every 4 hours, PRN Belatacept IVPB CellCept 250 mg oral capsule, 1000 mg, By Mouth, 2 times a day cloNIDine 0.1 mg oral tablet, 0.1 mg, By Mouth, Every 6 hours, PRN cyclobenzaprine 10 mg oral tablet, 10 mg, By Mouth, 3 times a day, PRN Dextrose 50% Inj Syringe (25Gm), 12.5 Gm, IV Push Slowly, Every 20 minutes, PRN Dextrose 50% Inj Syringe (25Gm), 25 Gm, IV Push Slowly, Every 15 minutes, PRN Docusate Sodium Capsule, 100 mg= 1 capsule, By Mouth, 2 times a day, PRN doxazosin 2 mg oral tablet, 4 mg, By Mouth, Daily Duoneb Inhalation Solution, 1 vials, BAND Nebulizer, Every 4 hours, PRN Glucagon Inj, 1 mg, Intramuscular, Once, PRN Glucose Gel, 15 Gm, By Mouth, Every 20 minutes, PRN Glucose Gel, 30 Gm, By Mouth, Every 20 minutes, PRN Insulin Detemir Inj, 120 units= 1.2 mL, Subcutaneous Injection, Daily Insulin LISPRO Sliding Scale, 4-12 units, Subcutaneous Injection, 3 times a day before meals levothyroxine 0.025 mg oral tablet, 50 mcg, By Mouth, Daily Melatonin Tablet, 3 mg, By Mouth, Daily at bedtime, PRN metoprolol 100 mg oral tablet, extended release, 200 mg, By Mouth, Daily MiraLax Powder, 17 Gm= 1 pack/packet, By Mouth, Daily, PRN NaCL 0.9% 100 mL, 100 mL, IV Infusion NaCL 0.9% Flush, 3 mL, IV Push, Every 8 hours NaCL 0.9% Flush, 3 mL, IV Push, Every 8 hours, PRN pantoprazole 40 mg oral delayed release tablet, 40 mg, By Mouth, Daily PredniSONE, 40 mg, By Mouth, Daily Procardia XL 60 mg oral tablet, extended release, 60 mg, By Mouth, Daily Remdesivir Inj, 100 mg= 20 mL, IVPB, Every 24 hours Robitussin DM Liquid, 10 mL, By Mouth, Every 4 hours, PRN Senna Tablet, 8.6 mg= 1 tablet, By Mouth, 2 times a day, PRN Simethicone Tablet, 80 mg, Chew, 3 times a day, PRN simvastatin 20 mg oral tablet, 20 mg, By Mouth, Daily at bedtime Tessalon Perles, 100 mg, By Mouth, 3 times a day, PRN Home belatacept, 5 mg/kg, IV Infusion cyclobenzaprine 10 mg oral tablet, 10 mg= 1 tablet, By Mouth, 3 times a day, PRN doxazosin 4 mg oral tablet, 4 mg= 1 tablet, By Mouth, Daily furosemide 20 mg oral tablet, 20 mg= 1 tablet, By Mouth, Daily, PRN glipizide 2.5 mg oral tablet, 2.5 mg= 1 tablet, By Mouth, Daily levothyroxine 0.05 mg oral tablet, 50 mcg= 1 tablet, By Mouth, Daily lisinopril 40 mg oral tablet, 40 mg= 1 tablet, By Mouth, Daily metoprolol 200 mg oral tablet, extended release, 200 mg= 1 tablet, By Mouth, Daily mycophenolate mofetil 500 mg oral tablet, 1500 mg= 3 tablet, By Mouth, 2 times a day nortriptyline 25 mg oral capsule, 25 mg= 1 capsule, By Mouth, 2 times a day NovoLOG 100 units/mL subcutaneous solution, 20 units, Subcutaneous Injection, 3 times a day before meals predniSONE 5 mg oral tablet, 5 mg= 1 tablet, By Mouth, Daily PriLOSEC OTC 20 mg oral delayed release tablet, HYDRALhydraLIZINE, By Mouth, Daily Rayaldee 30 mcg oral capsule, extended release, See Instructions Rayaldee 30 mcg oral capsule, extended release, See Instructions simvastatin 20 mg oral tablet, 20 mg= 1 tablet, By Mouth, Daily at bedtime Tresiba FlexTouch 200 units/mL subcutaneous solution, 130 units, Subcutaneous Injection, Daily Trulicity Pen 1.5 mg/0.5 mL subcutaneous solution, 1.5 mg, Subcutaneous Injection, Every Thursday Allergies NKA Immunizations Vaccine Date Status SARS-CoV-2 (COVID-19) mRNA BNT-162b2 vac 01/10/2021 Recorded * Kimberley MITCHELL, Jax: PERFORM Event Display: Consultation Note Authored Date: [id number] I have discussed the case and its management with the fellow and agree with the findings and plan as documented in the fellow???s note.?? * Marc Rosa MD: PERFORM Event Display: Consultation Note Authored Date: [id number] Patient: ??CARISA MACK ? Age:??63 Years?Sex:??Female?:??1960?? History of Present Illness Reason for consult: COVID infection in pt who is immunosuppressed?? 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 CXR with mild opacity at the right midlung. Pt continues to be afebrile, vss, on??RA since hospitalization. Lab show normal wbc,??thrombocytopenia as well as mild transaminitis.??Pt continues to improved daily?? Review of Systems Neg for fevers, chills, n/v/d, rash, headaches, phlegm production, GI/ symptoms?? Physical Exam Vitals & Measurements Vital Signs?? Temperature: 97.7 DegF (10/25/23 12:00:00) Temperature Route: Oral (10/25/23 12:00:00) Pulse Rate: 77 bpm (10/25/23 08:20:00) Heart Rate Monitored: 68 bpm (10/25/23 10:00:00) Respiratory Rate: 26 br/min (10/25/23 13:00:00) Systolic Blood Pressure:??143 mm Hg??High (10/25/23 12:00:00) Diastolic Blood Pressure:??87 mm Hg??High (10/25/23 12:00:00) Blood pressure sites: Arm, right (10/25/23 04:00:00) Mean Arterial Pressure: 112 mm Hg (10/24/23 21:23:00) Pulse Pressure: 56 mm Hg (10/25/23 12:00:00) Oxygen Saturation:??91 %??Low (10/25/23 13:00:00) Mode of Delivery (Oxygen): Room air (10/25/23 00:00:00) Early Warning Score:??12??Critical (10/25/23 13:00:28) GEN: Obese??F, NAD HEENT: Anicteric, MMM w/out any lesions or thrush, neck supple, PERRLA CV: S1 and S2 appreciated Pulm: CTABL lungs GI/: Soft, non-tender MSK: No joint swelling or edema noted Derm: No rash or lesions noted?? Assessment/Plan Assessment:??Pt is a 63 y/o Obese F who is immunosuppressed with above motioned pmhx??is noted to have COVID infection, continues to improve daily and is on room air. ?? Recommendations: Consider 3D course of remdesivir?? Will defer to renal team regarding decision to continue to withhold??Belatacept or not. If pts risk??for transplanted related issues is higher and can not hold off Belatacept, in such case i do not see any indication to withhold it especially??since she has very minimal??covid??related symptoms ?? ID will sign off care Thank you? Please reach out if there is any questions or concerns?? Total Time Spent I spent a total of?? 60+ minutes today reviewing the chart/medical records, speaking with the patient, formulating and discussing the treatment plan, and documenting the findings and encounter Problem List/Past Medical History Ongoing Severe obesity Medications Inpatient Acetaminophen Tablet, 650 mg, By Mouth, Every 4 hours, PRN Belatacept IVPB CellCept 250 mg oral capsule, 1000 mg, By Mouth, 2 times a day cloNIDine 0.1 mg oral tablet, 0.1 mg, By Mouth, Every 6 hours, PRN cyclobenzaprine 10 mg oral tablet, 10 mg, By Mouth, 3 times a day, PRN Dextrose 50% Inj Syringe (25Gm), 12.5 Gm, IV Push Slowly, Every 20 minutes, PRN Dextrose 50% Inj Syringe (25Gm), 25 Gm, IV Push Slowly, Every 15 minutes, PRN Docusate Sodium Capsule, 100 mg= 1 capsule, By Mouth, 2 times a day, PRN doxazosin 2 mg oral tablet, 4 mg, By Mouth, Daily Duoneb Inhalation Solution, 1 vials, BAND Nebulizer, Every 4 hours, PRN Glucagon Inj, 1 mg, Intramuscular, Once, PRN Glucose Gel, 15 Gm, By Mouth, Every 20 minutes, PRN Glucose Gel, 30 Gm, By Mouth, Every 20 minutes, PRN Insulin Detemir Inj, 120 units= 1.2 mL, Subcutaneous Injection, Daily Insulin LISPRO Sliding Scale, 4-12 units, Subcutaneous Injection, 3 times a day before meals levothyroxine 0.025 mg oral tablet, 50 mcg, By Mouth, Daily Melatonin Tablet, 3 mg, By Mouth, Daily at bedtime, PRN metoprolol 100 mg oral tablet, extended release, 200 mg, By Mouth, Daily MiraLax Powder, 17 Gm= 1 pack/packet, By Mouth, Daily, PRN NaCL 0.9% 100 mL, 100 mL, IV Infusion NaCL 0.9% Flush, 3 mL, IV Push, Every 8 hours NaCL 0.9% Flush, 3 mL, IV Push, Every 8 hours, PRN pantoprazole 40 mg oral delayed release tablet, 40 mg, By Mouth, Daily PredniSONE, 5 mg, By Mouth, Daily Procardia XL 60 mg oral tablet, extended release, 60 mg, By Mouth, Daily Remdesivir Inj, 100 mg= 20 mL, IVPB, Every 24 hours Robitussin DM Liquid, 10 mL, By Mouth, Every 4 hours, PRN Senna Tablet, 8.6 mg= 1 tablet, By Mouth, 2 times a day, PRN Simethicone Tablet, 80 mg, Chew, 3 times a day, PRN simvastatin 20 mg oral tablet, 20 mg, By Mouth, Daily at bedtime Tessalon Perles, 100 mg, By Mouth, 3 times a day, PRN Home belatacept, 5 mg/kg, IV Infusion cyclobenzaprine 10 mg oral tablet, 10 mg= 1 tablet, By Mouth, 3 times a day, PRN doxazosin 4 mg oral tablet, 4 mg= 1 tablet, By Mouth, Daily furosemide 20 mg oral tablet, 20 mg= 1 tablet, By Mouth, Daily, PRN glipizide 2.5 mg oral tablet, 2.5 mg= 1 tablet, By Mouth, Daily levothyroxine 0.05 mg oral tablet, 50 mcg= 1 tablet, By Mouth, Daily lisinopril 40 mg oral tablet, 40 mg= 1 tablet, By Mouth, Daily metoprolol 200 mg oral tablet, extended release, 200 mg= 1 tablet, By Mouth, Daily mycophenolate mofetil 500 mg oral tablet, 1500 mg= 3 tablet, By Mouth, 2 times a day nortriptyline 25 mg oral capsule, 25 mg= 1 capsule, By Mouth, 2 times a day NovoLOG 100 units/mL subcutaneous solution, 20 units, Subcutaneous Injection, 3 times a day before meals predniSONE 5 mg oral tablet, 5 mg= 1 tablet, By Mouth, Daily PriLOSEC OTC 20 mg oral delayed release tablet, HYDRALhydraLIZINE, By Mouth, Daily Rayaldee 30 mcg oral capsule, extended release, See Instructions Rayaldee 30 mcg oral capsule, extended release, See Instructions simvastatin 20 mg oral tablet, 20 mg= 1 tablet, By Mouth, Daily at bedtime Tresiba FlexTouch 200 units/mL subcutaneous solution, 130 units, Subcutaneous Injection, Daily Trulicity Pen 1.5 mg/0.5 mL subcutaneous solution, 1.5 mg, Subcutaneous Injection, Every Thursday Antibiotic History No qualifying data available. Allergies NKA Immunizations Vaccine Date Status SARS-CoV-2 (COVID-19) mRNA BNT-162b2 vac 01/10/2021 Recorded * Event Display: Consultation Note Authored Date: [id number] CONSULTATION DATE: 10/25/2023 HISTORY OF PRESENT ILLNESS: I was asked to see the patient to assist in evaluation and management of the patient's kidney transplant care. 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 A decision was made to pulse with steroids and increase her CellCept from 1000 mg twice a day to 1500 mg twice a day. She has been tapered down on herprednisone. On this backdrop, she has been doing reasonably well with a creatinine ranging in the 1.8-2.0 rangeand then became ill on Thursday of last week with upper respiratory symptoms that got progressively worse, came to [facility] and was diagnosed with COVID. She has been saturating well on room air but has a dry productive cough. She is also complaining of some dyspnea with exertion and poor p.o. intake. At [facility] she had labs done, which showed her creatinine had bumped to 2.5, up from her baseline of 2.0. Decision was made to transfer her to [facility], so she can get moreintense evaluation including infectious disease consultation regarding how best to manage her givenher high risk for complications associated with COVID because of her immunosuppressed state. Of note, her belatacept is every 28 days and she is due for her next dose on Thursday. The patient overall feels about the same. She does complain about her sugars are running high sinceher metformin was switched to Glucotrol several months ago. She denies any fevers or chills. No diarrhea, but she has had some nauseousness and poor p.o. intake. Her has COVID, but no one else in the family. MEDICATIONS: On admission are noted in admitting notes and include allopurinol 100 mg once a day, belatacept every 28 days. She is due on Thursday. She is on vitamin D supplementation, Trulicity, furosemide, Glucotrol, lisinopril, metoprolol, CellCept, omeprazole and prednisone. The CellCept is 1.5 grams twice a day. The admitting note states that she is on Synjardy, which she is no longer taking. It also notes hydralazine, which she also is no longer taking the latter because there was concern perhaps this was causing a flare of her lupus nephritis. Her current medications from the JUN show doxazosin 4 mg once a day, insulin coverage, Synthroid, metoprolol, CellCept 1.5 grams twice a day, prednisone 5 mg once a day. ALLERGIES: She has no known drug allergies. SOCIAL HISTORY: She is nonsmoker, nondrinker, no illicit drug use. FAMILY HISTORY: Noncontributory. REVIEW OF SYSTEMS: As noted above. PHYSICAL EXAMINATION: VITAL SIGNS: Her blood pressure has been running high, with systolics in the 160-180 and diastolicsin the 80-90s. She is afebrile. She is on room air with sats of 93-95%. HEENT: Head is atraumatic, normocephalic. NECK: Supple. Mucous membranes are moist. LUNGS: She has rhonchi and expiratory wheezes. ABDOMEN: Obese, soft, nontender. EXTREMITIES: Shows 1+ pedal edema. LABORATORY DATA: Show hemoglobin 10.2, hematocrit 32.5, white blood cell count 5.1, platelet count 92,000. Sodium 137, potassium 4.9, chloride 102, bicarbonate 21, BUN 29, creatinine 2.5, calcium 7.5, phosphorus 3.7, albumin 2.9. Baseline creatinine 1.8-2.0. Last urinalysis on the computer is back in February, which showed 2+ protein and a urine protein to creatinine ratio of 2.5 grams. In November, it was as high as 5.6 grams. Chest x-ray has not been formally read, but does appear like she has some diffuse ground-glass abnormalities. 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 1. Acute COVID infection in an immunocompromised patient. The patient is at high risk for serious complications associated with COVID. Infectious disease team is going to consult and see if she is a candidate for specific treatment to mitigate her risk of acute COVID decompensation. Additionally, her immunosuppressive regimen needs to be reexamined. In particular, whether dose adjustment in her CellCept and perhaps increasing the prednisone. Also, she is scheduled for belatacept on Thursday, which need to consider pros and cons of delaying for several days. Typically the belatacept needs to be done every 28 days, although there is a 3-4 day leeway in either direction and therefore we could push it towards the end of the week. 2. Dyspnea on exertion and mild hypoxia. Continue to track her oxygen requirements. Obtain a cardiac echo to assess her LV function. Cautious use of IV fluids. Need to increase her blood pressure medications. 3. Acute kidney injury. Her baseline creatinine is around 2 now to 2.5. It is unclear whether this is related to her COVID infection with tubular injury versus progression of her lupus nephritis. Need to obtain some urine studies, which I will order. 4. Lupus nephritis. The treatment regimen was pulse steroids with tapering course of steroids and increasing her CellCept. Given her acute COVID infection, she is not a candidate for any additional immunosuppressive treatment for her membranous GN. When she resolves from the COVID, we can reassess the pros and cons of additional or alternative immunosuppressive regimens for lupus class 4 nephritis in her transplant kidney. 5. Hypertension. Blood pressure is under suboptimal control. Would avoid using hydralazine, but would increase blood pressure medications. It is unclear why she was taken off Norvasc, but would go ahead and start her on Procardia and increase the dose and start her on 60 mg once a day along with the doxazosin. 6. Diabetes. We would avoid using metformin in this patient. Continue with insulin coverage. We will look to restart her on Glucotrol and her Trulicity. RECOMMENDATIONS: At this time, include obtaining urine studies, which I will order. Decrease her CellCept to 1 gram twice a day. Discuss with ID whether she is a candidate for additional medication such as remdesivir or Paxlovid. Obtain a cardiac echo. Monitor oxygenation closely. Again, discuss with ID theissue about her belatacept, which she is due for on Thursday. We will follow the patient closely with the team. Dictated by: Berlin Shin M.D. Signing Clinician: Berlin Shin M.D. Dictated: 10/25/2023 06:58:32 Transcribed: 03:26:17 AM Transcribed by: CAMI DocID: [id number] PRELIMINARY REPORT UNLESS MANUALLY/ELECTRONICALLY SIGNED Note * Archie MITCHELL, Mk Dyer: MODIFY, PERFORM Event Display: Discharge/Transfer Note Hospital Authored Date: [id number] Patient: ??CARISA MACK ? Age:??63 Years?Sex:??Female?:??1960?? Patient Information Discharge Location: [facility] Primary Care Physician: Amaya MITCHELL, Davey Ol[place]stead Admit Date/Time: 10/24/23 19:55 Discharge Disposition Discharge Disposition: Home: No Services Discharge Diagnosis Hypoglycemia (E16.2) Type 2 diabetes mellitus (E11.9) ANDREW (acute kidney injury) (N17.9) History of renal transplant (Z94.0) History of lupus nephritis (Z87.39) History of end stage renal disease (Z87.448) Immunosuppression (D84.9) CKD (chronic kidney disease) (N18.9) COVID-19 (U07.1) History of systemic lupus erythematosus (SLE) (M32.9) Lupus nephritis (M32.14) Essential hypertension (I10) Dyslipidemia (E78.5) Hypothyroidism (E03.9) Acid reflux (K21.9) _ Discharge Medications belatacept?5?Milligrams/Kilogram?IV Infusion Calcifediol (Rayaldee 30 mcg oral capsule, extended release)?See Instructions?TAKE 1 CAPSULE BY MOUTH EVERY DAY Calcifediol (Rayaldee 30 mcg oral capsule, extended release)?See Instructions?TAKE 1 CAPSULE BY MOUTH EVERY DAY Cyclobenzaprine (cyclobenzaprine 10 mg oral tablet)?10?Milligram?1?tablet?By Mouth?3 times a day?as needed?for spasm Doxazosin (doxazosin 4 mg oral tablet)?1?tab(s)?4?Milligram?By Mouth?Daily dulaglutide (Trulicity Pen 1.5 mg/0.5 mL subcutaneous solution)?1.5?Milligram?SubcutaneousInjection?Every Thursday Insulin Aspart (insulin aspart 100 units/mL subcutaneous solution)?7-19 units?Subcutaneous Injection?3 times a day before meals?100 - 149 ?? 7 units 150 - 199 ?? 9 units 200 - 249 ?? 11 units 250 - 299 ?? 13 units 300 - 349 ?? 15 units 350 - 399 ?? 17 units 400 - 449 ?? 19 units Insulin Glargine (insulin glargine 100 units/mL subcutaneous solution)?0.3?Milliliter?30?unit(s)?Subcutaneous Injection?Daily at bedtime Levothyroxine (levothyroxine 0.05 mg oral tablet)?1?tab(s)?50?Microgram?By Mouth?Daily Metoprolol (metoprolol 200 mg oral tablet, extended release)?1?tab(s)?200?Milligram?By Mouth?Daily Mycophenolate Mofetil (mycophenolate mofetil 500 mg oral tablet)?3?tab(s)?1,500?Milligram?By Mouth?2 times a day NIFEdipine (Procardia XL 30 mg oral tablet, extended release)?30?Milligram?By Mouth?Daily Nortriptyline (nortriptyline 25 mg oral capsule)?25?Milligram?1?capsule?By Mouth?2 times a day Omeprazole (PriLOSEC OTC 20 mg oral delayed release tablet)?HYDRALhydraLIZINE?By Mouth?Daily PredniSONE (predniSONE 5 mg oral tablet)?See Instructions?currently on a long taper with her nephrology office (40mg for 2 weeks and then down titer) Simvastatin (simvastatin 20 mg oral tablet)?20?Milligram?1?tablet?By Mouth?Daily at bedtime ? Medications Started NIFEdipine (Procardia XL 30 mg oral tablet, extended release)?30?Milligram?By Mouth?Daily Insulin Glargine (insulin glargine 100 units/mL subcutaneous solution)?0.3?Milliliter?30?unit(s)?Subcutaneous Injection?Daily at bedtime Medications Discontinued Insulin Tresiba Insulin aspart Lisinopril Furosemide ?? Aspart insulin dose changed to -Insulin Aspart (insulin aspart 100 units/mL subcutaneous solution)?7-19 units?Subcutaneous Injection?3 times a day before meals?100 - 149 ?? 7 units 150 - 199 ?? 9 units 200 - 249 ?? 11 units 250 - 299 ?? 13 units 300 - 349 ?? 15 units 350 - 399 ?? 17 units 400 - 449 ?? 19 units Allergies Allergies ?(Active and Proposed Allergies Only) NKA? (Severity: Unknown severity, Onset: Unknown) ? Hospital Course 63-year-old female patient who presents to our facility as a transfer from [facility] emergency department as per nephrology recommendations. She has a past medical history of end-stage renal disease s/p renal transplant in 1999 secondary to lupus (currently on prednisone, CellCept, and Belatacept infusion), essential hypertension, insulin-dependent diabetes mellitus who presents to [facility] for evaluation of shortness of breath found to have COVID pneumonia And was transferred to [facility] after discussion with patient's soa integration developer Dr. Shin for management of ANDREW on CKD. ?? 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 Her baseline creatinine is between 1.8 and 2.0. Found to be in ANDREW on presentation with creatinine of 2.4 which then later on trended to a peak of 3.32. Patient underwent renal biopsy on 10/26. Preliminary light microscopy results show changes consistent withlupus nephritis diabetic nephropathy and ATN possibly related to COVID-19 infection. She will follow-up with nephrology within 1 week. She is to continue on 30 mg daily of prednisone until the follow-up appointment. She received her last belatacept infusion on 10/27. Creatinine is downtrending and at 3.1 at the time of discharge. ?? She was found to be positive for COVID-19 infection on 10/22. Did receive Solu- Medrol at outside hospital. Not hypoxic during this hospitalization to receive steroids. She did complete 3 days of remdesivir. She will benefit from outpatient sleep study as was noted to desaturate to 91% overnight. ?? She has a history of type 2 diabetes and is on glipizide Trulicity and Tresiba 130 units daily. However while in the hospital her insulin dose had to be adjusted multiple times by endocrinology due to development of recurrent hypoglycemia. Possibly in the setting of renal failure with poor clearance of insulin. Her dose has not been adjusted to 30 units of Lantus at bedtime with sliding scale aspart. Glipizide has been discontinued. ?? Patient is on lisinopril however this will be discontinued due to ANDREW. Has been started on nifedipine for blood pressure control. Also her as needed dose of Lasix will be discontinued. These medications can be restarted after review by the soa integration developer as outpatient. ?? Objective Measurements?? Height: 157 cm (10/27/23) Weight: 144.1 kg (10/28/23) Dry Weight: 142 kg (10/24/23) Body Mass Index:??57.61 kg/m2??Critical (10/24/23) ? Vital Signs?? Temperature: 98 DegF (10/28/23 11:00:00) Temperature Route: Oral (10/28/23 11:00:00) Pulse Rate: 72 bpm (10/28/23 11:00:00) Respiratory Rate: 20 br/min (10/28/23 11:00:00) Systolic Blood Pressure: 137 mm Hg (10/28/23 11:00:00) Diastolic Blood Pressure: 67 mm Hg (10/28/23 11:00:00) Blood pressure sites: Arm, right (10/28/23 11:00:00) Pulse Pressure: 70 mm Hg (10/28/23 11:00:00) Oxygen Saturation: 96 % (10/28/23 11:00:00) Mode of Delivery (Oxygen): Room air (10/28/23 11:00:00) Early Warning Score: 0 (10/28/23 12:33:27) ? . Physical Exam Constitutional: Alert, in no distress. Mental Status: Oriented to person, place and time. HEENT: unremarkable Neck: Supple, Full range of motion. Respiratory: Clear to auscultation. No wheezing, rales or rhonchi. Cardiovascular: S1 S2 regular. No murmurs, rubs or gallops. Gastrointestinal: Abdomen soft, non-tender, non-distended. Normal bowel sounds. Neurologic: Cranial nerves II-XII grossly intact. No focal neurological deficits.?? Moves all extremities spontaneously. Sensation intact bilaterally. Skin: No rashes or lesions. No petechiae or purpura.?? Musculoskeletal:?? Normal range of motion.. Psychiatric: Normal mood and affect Consultants [place] Shin MD?- Renal Jax Chu MD - TARA Pending Results Add On Lab Order ordered on 10/24/2023 Complete Urinalysis ordered on 10/25/2023 Creatinine Urine ordered on 10/25/2023 Protein/Creatinine Ratio Urine ordered on 10/25/2023 Sodium Urine ordered on 10/25/[address] Renal ordered on 10/27/2023 Follow-Up Appointments Added Follow Up ?Time Frame ?Comments Kip MITCHELL, [place]?1 week: call to discuss follow up visit Davey Conde MD?3-5 day: call to discuss follow up visit Post Discharge Care Activity: ??Ambulate with assistance 3 times a day unless otherwise specified ?? Code Status: ??Full Resuscitation ?? Discharge ?10/28/23 14:59:00 EDT Home Health Face to Face ^HomeHealthFTF Results Discharge Labs BLOOD COUNT & DIFF WBC 10.5 k/mm3 ()?? 10/26/2023 00:57 RBC 3.51 m/mm3 (Low)?? 10/26/2023 00:57 Hgb 10.4 Gm/dL (Low)?? 10/26/2023 00:57 Hct 33.5 % (Low)?? 10/26/2023 00:57 MCV 95.4 femtoliters ()?? 10/26/2023 00:57 MCH 29.6 pg ()?? 10/26/2023 00:57 MCHC 31.0 g/dL (Low)?? 10/26/2023 00:57 Platelet Count 127 k/mm3 (Low)?? 10/26/2023 00:57 RDW-SD 45.7 femtoliters ()?? 10/26/2023 00:57 MPV 11.1 femtoliters ()?? 10/26/2023 00:57 Nucleated RBC (Automated) 0.0 #/100 WBC'S ()?? 10/26/2023 00:57 Abs. NRBC 0.0 k/mm3 ()?? 10/26/2023 00:57 Abs. Neut 4.7 k/mm3 ()?? 10/24/2023 22:17 Abs. Lymph 0.2 k/mm3 (Low)?? 10/24/2023 22:17 Abs. [place] 0.1 k/mm3 (Low)?? 10/24/2023 22:17 Abs. Eo 0.0 k/mm3 ()?? 10/24/2023 22:17 Abs. Baso 0.0 k/mm3 ()?? 10/24/2023 22:17 Neut % 93.2 % (High)?? 10/24/2023 22:17 Lymph % 4.4 % (Low)?? 10/24/2023 22:17 [place] % 1.4 % (Low)?? 10/24/2023 22:17 Eos % 0.0 % ()?? 10/24/2023 22:17 Baso % 0.2 % ()?? 10/24/2023 22:17 Imm Gran 0.8 % ()?? 10/24/2023 22:17 Abs. Imm Gran 0.0 k/mm3 ()?? 10/24/2023 22:17 ?? CHEM GENERAL Sodium 139 mmol/L ()?? 10/28/2023 04:38 Potassium 4.5 mmol/L ()?? 10/28/2023 04:38 Chloride 107 mmol/L ()?? 10/28/2023 04:38 Bicarbonate Level 22 mmol/L ()?? 10/28/2023 04:38 Anion Gap 10 ()?? 10/28/2023 04:38 Glucose Level 459 mg/dL (High)?? 10/24/2023 22:17 Glucose, POC 90 mg/dL ()?? 10/28/2023 11:20 Hemoglobin A1C (Monitoring) 8.4 % (High)?? 10/27/2023 01:01 BUN 59 mg/dL (High)?? 10/28/2023 04:38 Creatinine-Blood 3.10 mg/dL (High)?? 10/28/2023 04:38 Estimated GFR Creatinine 16 ML/MIN/1.73 M2 ()?? 10/28/2023 04:38 Calcium 7.5 mg/dL (Low)?? 10/24/2023 22:17 Phosphorus 3.7 mg/dL ()?? 10/24/2023 22:17 Magnesium 1.9 mg/dL ()?? 10/26/2023 00:57 Protein, Total 4.7 Gm/dL (Low)?? 10/24/2023 22:17 Albumin 2.9 Gm/dL (Low)?? 10/24/2023 22:17 AG Ratio 1.6 ()?? 10/24/2023 22:17 Alkaline Phosphatase 102 units/L ()?? 10/24/2023 22:17 AST (SGOT) 47 units/L (High)?? 10/24/2023 22:17 ALT (SGPT) 46 units/L (High)?? 10/24/2023 22:17 Bilirubin, Total 0.5 mg/dL ()?? 10/24/2023 22:17 ? COAG INR 1.1 ()?? 10/27/2023 05:58 Protime (PT) 11.5 seconds (High)?? 10/27/2023 05:58 ?? HEME OTHER Hold Lavender Top SPECIMEN DISCARDED AFTER 24 HOURS. ()?? 10/28/2023 04:38 ? IMMUNOLOGY GENERAL Complement C3 135 mg/dL ()?? 10/26/2023 00:57 Complement C4 34 mg/dL ()?? 10/26/2023 00:57 Transplant DSA Post, gel tube SPECIMEN COLLECTED FOR ANALYSIS AND FORWARDED FOR TESTING TO [facility] ()?? 10/27/2023 01:01 ? TOXICOLOGY/TDM Tacrolimus Level <0.8 ng/mL (Low)?? 10/25/2023 05:11 Mycophenolate Level 1.0 ??g/mL (Low)?? 10/28/2023 04:38 ?? UA/URINALYSIS Appear/Color, Urine LIGHT YELLOW ()?? 10/25/2023 07:19 Specific [place], Urine 1.023 ()?? 10/25/2023 07:19 pH, Urine 6.5 ()?? 10/25/2023 07:19 Albumin, Urine 3+ (Abnormal)?? 10/25/2023 07:19 Glucose, Urine 4+ (Abnormal)?? 10/25/2023 07:19 Ketones, Urine NEGATIVE ()?? 10/25/2023 07:19 Bilirubin, Urine NEGATIVE ()?? 10/25/2023 07:19 Hemoglobin, Urine 3+ (Abnormal)?? 10/25/2023 07:19 Nitrite, Urine NEGATIVE ()?? 10/25/2023 07:19 Leukocyte, Urine NEGATIVE ()?? 10/25/2023 07:19 Urobilinogen NORMAL mg/dL ()?? 10/25/2023 07:19 WBC's, Urine 3 /HPF ()?? 10/25/2023 07:19 RBC's, Urine 5 /HPF (High)?? 10/25/2023 07:19 Bacteria SLIGHT HPF (Abnormal)?? 10/25/2023 07:19 Squamous Epith 2 /HPF ()?? 10/25/2023 07:19 Hyaline Cast 1 LPF ()?? 10/25/2023 07:19 Mucus SLIGHT /LPF ()?? 10/25/2023 07:19 ? URINE OTHER Creatinine, Urine Random 87.8 mg/dL ()?? 10/25/2023 07:19 Sodium, Urine Random 26 mmol/L ()?? 10/25/2023 07:19 Protein, Total Urine Random 621 mg/dL ()?? 10/25/2023 07:19 TP/Cr Ratio 7.07 (High)?? 10/25/2023 07:19 Creatinine, Urine 87.8 mg/dL ()?? 10/25/2023 07:19 Est Creatinine Clearance 14.75 mL/min ()?? 10/27/2023 06:40 ? 43_ minutes spent on discharge * Kassie Jo RN: PERFORM Event Display: Patient Education/Instruction Authored Date: [id number] Inpatient Adult Discharge Instructions. [place] [id number] Name: CARISA MACK : 1960?? Visit: 10/24/2023 19:55?? Current Date: 10/28/2023 16:53 ?? Account: [id number]?? Inpatient Adult Discharge Instructions We would like to thank you for allowing us to assist you with your healthcare needs. The following includes patient education materials and information regarding your injury/illness. Our entire staffstrives to provide an excellent experience for our patients and their families. PLEASE ENSURE YOU FOLLOW-UP PER THE INSTRUCTIONS BELOW! ?? YOUR OPINION IS IMPORTANT TO US! Please complete the survey you may receive by mail or email. Your feedback will be used to make improvements to the healthcare experiences of our patients and their families. Surveys are administered by [employer] ?? If further treatment with your primary care physician or another doctor is recommended, it is important for you to keep the appointment. Call your primary care physician or return to the Emergency Department immediately if your condition worsens, fails to improve, or new symptoms develop. If you need to find a doctor, you can call [facility] [employer] for a referral at [phone] or toll free at [phone] ([phone]) or log in to [email or web address].. ?? [facility], in keeping with [facility] guidance, no longer requires face masks for staff, patientsor visitors in most situations. Similiar to time spent indoors at other locations, there is the chance that you were exposed to repiratory viruses during your time with us (such as flu or COVID-19). If you develop symptoms concerning for a viral respiratory infection, please seek testing (and treatment if indicated) from your medical provider or home test kit. ?? You can view and manage your care through the patient portal or by using a health care sandi of your choosing. Sidelines is a website that allows you to securely view your medical information including your hospital discharge summary, office visit summaries, medications and follow-up visits. You can also request appointments, renew medications, and request access to your medical information using a health care sandi of your choosing, or just ask a question. You can enroll at [email or web address] or register during your next office visit. You have been discharged from [facility], Patient Care Unit: [id number]??. If you have any questions regarding these instructions, including results of studies pending, afteryou leave, please call us and we will be happy to assist you 17/11. [facility] Your Care Team Attending Physician Mk Almanza MD?? Consulting Providers Mk Almanza MD?? Discharging Providers Mk Almanza MD Your Diagnosis Hypoglycemia Type 2 diabetes mellitus ANDREW (acute kidney injury) History of renal transplant History of lupus nephritis History of end stage renal disease Immunosuppression CKD (chronic kidney disease) COVID-19 Acid reflux Dyslipidemia Essential hypertension History of systemic lupus erythematosus (SLE) Hypothyroidism Lupus nephritis Tests Performed Below is a partial list of the tests performed during your hospitalization. You may have had other tests and procedures not included in this list. Please discuss all test results with your provider. 19973 BUN C3 Complement C4 Complement CBC CBC w/ Differential Comprehensive Metabolic Panel Creatinine Creatinine Urine?-- Results Pending -- Electrolytes GLUCOSE POC Hemoglobin A1C (Monitoring) HOLD LAVENDER TUBE INR Lytes Magnesium Level Mycophenolate Level PHOSPHORUS Protein/Creatinine Ratio Urine?-- Results Pending -- Sodium Urine?-- Results Pending -- TACROLIMUS Transplant DSA Post UA?-- Results Pending -- Urinalysis Complete Urine Creatinine Urine Protein/Creatinine Ratio Urine Sodium CXR Portable You will be contacted within 72 hours with your results. Add On Lab Order?? Complete Urinalysis (UA)?? Creatinine Urine?? Protein/Creatinine Ratio Urine?? Sodium Urine?? US Guide Needle Place Renal?? Primary Care Provider Davey Conde MD? Advance Directive Health Care Proxy on File No Patient refuses to discuss Discharge Vitals Temperature: 98 DegF Height: 157 cm Pulse Rate: 72 bpm Weight: 144.1 kg Respiratory Rate: 20 br/min Body Mass Index:??57.61 kg/m2??Critical Systolic Blood Pressure: 137 mm Hg Body surface area: 2.49 Diastolic Blood Pressure: 67 mm Hg ?? Oxygen Saturation: 96 % ?? Studies Pending All studies ordered during this hospital stay have been completed unless listed below. Please discuss all pending results with your provider listed above in these instructions. ?? Add On Lab Order?? Complete Urinalysis (UA)?? Creatinine Urine?? Protein/Creatinine Ratio Urine?? Sodium Urine?? US Guide Needle Place Renal?? What to do next Instructions From Your Doctor ?? Orders??:Ambulate with assistance ??3 times a day ??unless otherwise specified Status: ??Full Resuscitation? 10/28/23 14:59:00 EDT?? You Need to Schedule the Following Appointments Follow Up with??Berlin Shin MD When:??Within 1 week: call to discuss follow up visit Follow Up with??Davey Conde MD When:??Within 3-5 day: call to discuss follow up visit Where: [address] [place] [phone]- Discharge Medications CARISA MACK :1960 Visit Date:10/24/2023 Medications: Please continue your medications until treatment is completed or stopped by your provider. Medications not listed below should be discontinued. Discuss any questions related to medications with your provider. What How Much When Instructions Next Dose New Insulin Glargine (insulin glargine 100 units/ mL subcutaneous solution) 0.3 Milliliter Subcutaneous Injection Daily at Bedtime Pickup at [facility] #[id number] 7..24 at bedtime New NIFEdipine (Procardia XL 30 mg oral tablet, extended release) 30 Milligram Oral Daily Pickup at [facility] #[id number] 7.08.18 in am Changed Insulin Aspart (insulin aspart 100 units/ mL subcutaneous solution) 7-19 units Subcutaneous Injection 3 times a day before meals 100 - 149 ?? 7 units 150 - 199 ?? 9 units 200 - 249 ?? 11 units 250 - 299 ?? 13 units 300 - 349 ?? 15 units 350 - 399 ?? 17 units 400 - 449 ?? 19 units ?? Pickup at [facility] 3 inspecting supervisor after 7 Due at mealtime Changed Levothyroxine (levothyroxine 0.05 mg oral tablet) 1 tab(s) Oral Daily 7.24 in am Changed Metoprolol (metoprolol 200 mg oral tablet, extended release) 1 tab(s) Oral Daily 7.08.18 in am Changed Mycophenolate Mofetil (mycophenolate mofetil 500 mg oral tablet) 3 tab(s) Oral Twice a day 7.08.18 in am Changed PredniSONE (predniSONE 5 mg oral tablet) See instructions currently on a long taper with her nephrology office (40mg for 2 weeks and then down titer) Continue 30 mg daily until seen by soa integration developer ?? .08.18 in am Changed Simvastatin (simvastatin 20 mg oral tablet) 1 tab(s) Oral Daily at Bedtime 7..24 at bedtime Unchanged belatacept 5 Milligrams/Kilogram Intravenous Infusion Schedule Unchanged Calcifediol (Rayaldee 30 mcg oral capsule, extended release) See instructions TAKE 1 CAPSULE BY MOUTH EVERY DAY ?? 10.29.23 Unchanged Calcifediol (Rayaldee 30 mcg oral capsule, extended release) See instructions TAKE 1 CAPSULE BY MOUTH EVERY DAY ?? DUPLICATE Unchanged Cyclobenzaprine (cyclobenzaprine 10 mg oral tablet) 1 tab(s) Oral 3 times a day as needed for for spasm PRN Unchanged Doxazosin (doxazosin 4 mg oral tablet) 1 tab(s) Oral Daily .08.18 in am Unchanged dulaglutide (Trulicity Pen 1.5 mg/ 0.5 mL subcutaneous solution) 1.5 Milligram Subcutaneous Injection Every Thursday10.30.23 Unchanged Nortriptyline (nortriptyline 25 mg oral capsule) 1 capsule Oral Twice a day 10.28.23 Unchanged Omeprazole (PriLOSEC OTC 20 mg oral delayed release tablet) HYDRALhydraLIZINE Oral Daily 10.29.23 Pharm[facility] Information [facility]: [address] [place], [place] [phone] [id number]: [address] [place], [place] [phone] ?? What How Much When Comments Stop Taking Allopurinol (allopurinol 100 mg oral tablet) 1 tab(s) Oral Daily Stop Taking empagliflozin-metFORMIN (Synjardy 5 mg-1000 mg oral tablet) 1 tab(s) Oral Daily with meals ?? Stop Taking Furosemide (furosemide 20 mg oral tablet) 1 tab(s) Oral Daily as needed for Other leg swelling ?? Stop Taking GlipiZIDE (glipizide 2.5 mg oral tablet) 1 tab(s) Oral Daily Stop Taking GlipiZIDE (glipizide 2.5 mg oral tablet) 1 tab(s) Oral Daily 30 minutes before breakfast ?? Stop Taking hydrALAZINE 50 Milligram Stop Taking insulin degludec (Tresiba FlexTouch 200 units/ mL subcutaneous solution) 130 unit(s) Subcutaneous Injection Daily rotate injection sites ?? Stop Taking Lisinopril (lisinopril 10 mg oral tablet) 1 tab(s) Oral Daily Stop Taking Lisinopril (lisinopril 40 mg oral tablet) 1 tab(s) Oral Daily Stop Taking Oxycodone / Acetaminophen (Percocet 5 mg-325 mg oral tablet) 1 tab(s) Oral Every 6 hours as needed for as needed for pain Prescription Given During Visit Insulin Aspart (insulin aspart 100 units/mL subcutaneous solution) - , Subcutaneous Injection, 3 times a day before meals, # 15 mL, 0 Refills, 100 - 149 ?? 7 units 150 - 199 ?? 9 units 200 - 249 ?? 11 units 250 - 299 ?? 13 units 300 - 349 ?? 15 units 350 - 399 ?? 17 units 400 - 449 ?? 19 units, [facility] [address], [address] [place] [phone]?? Insulin Glargine (insulin glargine 100 units/mL subcutaneous solution) - 0.3 mL = 30 units, Subcutaneous Injection, Daily at bedtime, # 15 mL, 0 Refills, [facility] #[id number], [address] [place] [phone]?? NIFEdipine (Procardia XL 30 mg oral tablet, extended release) - 30 mg, By Mouth, Daily, # 30 each, 0 Refills, [facility] #[id number], [address] [place] [phone]?? Laboratory Results Below is a partial list of the most recent Laboratory test results done prior to this discharge. You may have had other tests and procedures not included in this list. Please discuss all test resultswith your provider. Est Creatinine Clearance - 14.75 mL/min (10/27/2023) [address] (10/27/2023) ? ?Surgical Pathology - Patient Name: CARISA MACK
Lab
Patient : 1960 (Age: 63)
Collection Date: 10/27/2023
Accession Date: 10/27/2023
Sign Out Date: & nbsp; 10/28/2023

Tissue Source:
1:KIDNEY:NEEDLE BX-TRANSPLANT FOR LM

Final Diagnosis:
Renal biopsy (diagnosis based on light microscopy only):
- Minimal interstitial inflammat ion of non-scarred cortex (i1), without tubulitis (t0), classified as negative for acute F-tyik-vusuxpos rejection.
- Diffuse glomerular hypercellularity with thickened basement membranes, prominent double contours, focal hyalinosis and focal nodularity, consistent with transplant glomerulopathy, diabetic glomerulopathy, and known lupus.
- Acute tubular injury is morphologically modest, of uncertain significance (known COVID infection).
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
- Global sclerosis of 9 of 22glomeruli (40%) with interstitial fibrosis and tubular atrophy involving about 30% of the cortical a syd.

Note: There are multiple medical issues contributing to complex pathologic findings, including 20 years post transplant, severe obesity, diabetes, hypertension, lupus, and COVID, that are not individually distinguishable based on morphologic features alone. &n bsp;

Specifically, glomerular changes could be largely attributable to transplant glomerulopathy and diabetes, but can be indistinguishable from diffuse lupus nephritis by light microscopy alone. Per report, a biopsy from about 2 months ago is reported as class IV lupus, which would need to be supported by immunofluorescence and electron microscopy (report not available), and in the absence of serologic support, caution is warranted. This biopsy was not submitted for EM and IF, although IF will be performed on formalin-fixed tissue and reported in an addendum.

Arteriolar changes are severe and attributable to diabetes and hypertension, andcan also be indistinguishable from calcineurin inhibitor toxicity. 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

There is mild acute tubular injury that appears commensurate with the other pathologic findings and is not specific, although a component attributable to known acute COVID infection cannot be excluded.

With regard to rejection, non-scarred cortex demonstrates minimal interstitial inflammation without tubulitis, negative for acute T-cell mediated rejection. Glomerulitis is present but may be attributable to transplant glomerulopathy and possibly lupus and is insufficient for diagnosis of antibody- mediated rejection. Correlation with molecular microscope and DSA is required for further characterization.

Molecular microscope is been initiated, to be performed and reported separately, and caution is warranted giventhe multiple medical issues that complicate proper interpretation.

Light microscopy
The biopsy consists of 4 fragments containing a total of 22 glomeruli, of which 9 are globally sclerotic. The interstitium demonstrates a variable inflammatory infiltrate mostly composed of lymphocytes within the areas of interstitial fibrosis and chronic tubular atrophy atrophic tubules comprise 10-15% of cross-sections. Tubulitis is not identified within nonatrophic tubules. Several medium-sized interstitial arteries demonstrate severe fibrointimalthickening and luminal narrowing with reduplication of internal elastic, without intimal arteritis and without hyalinosis. Multiple small arteries and arterioles demonstrate severe intimal thickening and luminal narrowing, with focally severe (concentric) hyalinosis and marked luminal narrowing of multiple cross-sections. There is mild peritubular capillaritis (ptc1)

Special stains
PAS stains demonstrate a total of 22 glomeruli, of which 9 are g lobally sclerotic. Open glomeruli demonstrate diffuse mesangial and endocapillary hypercellularity with thickened capillary loops, prominent double contours, focal hyalinosis, andfocal nodularity. Glomerulitis is present although may be attributable to transplant glomerulopathy and possibly lupus (and not specific for rejection).
Flower stain shows findingssimilar to PAS. Double contours are focally prominent, involving greater than 50% of the m ost involved glomerulus
Trichrome stain shows interstitial fibrosis involving about 30% of the cortical area.

Electron microscopy
No specimen submitted

Immunofluorescence studies
No specimen submitted. Immunofluorescence will be performed on formalin fixed tissue and reported in an addendum.

Primary Pathologist:Berlin Jay M.D.
electronically signed out by: [place] Jay M.D. / JKF

Clinical History:
63-year-old patient with transplant kidney, assess for failure
Renal failure
Per [facility], history includes severe obesity, diabetes, hypertension, lupus, and recent COVID infection in setting of 20 years post- transplant from living related donor. &a mp;nbsp;Per nephrology note, recent diagnosis of class IV lupus with negative serologies, details not known and report not documented.

Gross Description:
Part 1. Labeled core specimen right lower quadrant transplant kidney". Received in formalin are 4 cylindrical portions of boss, soft tissue ranging from 0.9 x 0.1 x 0.1 cm to 1.8 x 0.1 x 0.1 cm. The specimen is submitted in toto.
1-4cores, x12. ()*

As ofJuly 04, 2023, the specimen processing and staining is performed at [facility], [address] [place] [address] (CLIA#[id number]). Its performance characteristics determined by [facility]. Víctor Carroll M.D. [facility] Path[facility], Raeann Cooper M.D. [facility] Cytopathology

Phone #: [phone], On-Call Pathologist: [id number] BUN (10/28/2023) ???BUN - 59 mg/dL C3 Complement (10/26/2023) ???Complement C3 - 135 mg/dL C4 Complement (10/26/2023) ???Complement C4 - 34 mg/dL CBC (10/26/2023) ???WBC - 10.5 k/mm3???RBC - 3.51 m/mm3???Hgb - 10.4 Gm/dL???Hct - 33.5 %???MCV - 95.4 femtoliters???MCH - 29.6 pg???MCHC - 31.0 g/dL???Platelet Count - 127 k/mm3???RDW-SD - 45.7 femtoliters???MPV - 11.1 femtoliters???Nucleated RBC (Automated) - 0.0 #/100 WBC'S???Abs. NRBC - 0.0 k/mm3 CBC w/ Differential (10/24/2023) ???WBC - 5.1 k/mm3???RBC - 3.39 m/mm3???Hgb - 10.2 Gm/dL???Hct - 32.5 %???MCV - 95.9 femtoliters???MCH - 30.1 pg???MCHC - 31.4 g/dL???Platelet Count - 92 k/mm3???RDW-SD - 47.1 femtoliters???MPV - 9.8femtoliters???Nucleated RBC (Automated) - 0.0 #/100 WBC'S???Abs. NRBC - 0.0 k/mm3???Abs. Neut - 4.7 k/mm3???Abs. Lymph - 0.2 k/mm3???Abs. [place] - 0.1 k/mm3???Abs. Eo - 0.0 k/mm3???Abs. Baso - 0.0 k/mm3???Neut % - 93.2 %???Lymph % - 4.4 %???[place] % - 1.4 %???Eos % - 0.0 %???Baso % - 0.2 %???Imm Gran -0.8 %???Abs. Imm Gran - 0.0 k/mm3 Comprehensive Metabolic Panel (10/24/2023) ???Sodium - 137 mmol/L???Potassium - 4.9 mmol/L???Chloride - 102 mmol/L???Bicarbonate Level - 21 mmol/L???Anion Gap - 14???Glucose Level - 459 mg/dL???BUN - 29 mg/dL???Creatinine-Blood - 2.57 mg/dL???Estimated GFR Creatinine - 21 ML/MIN/1.73 M2???Calcium - 7.5 mg/dL???Protein, Total - 4.7 Gm/dL???Albumin - 2.9 Gm/dL???AG Ratio - 1.6???Alkaline Phosphatase - 102 units/L???AST (SGOT) - 47 units/L???ALT (SGPT) - 46 units/L???Bilirubin, Total - 0.5 mg/dL Creatinine (10/28/2023) ???Creatinine-Blood - 3.10 mg/dL???Estimated GFR Creatinine - 16 ML/MIN/1.73 M2 Electrolytes (10/26/2023) ???Sodium - 136 mmol/L???Potassium - 4.1 mmol/L???Chloride - 101 mmol/L???Bicarbonate Level - 19 mmol/L???Anion Gap - 16 GLUCOSE POC (10/28/2023) ???Glucose, POC - 90 mg/dL Hemoglobin A1C (Monitoring) (10/27/2023) ???Hemoglobin A1C (Monitoring) - 8.4 % HOLD LAVENDER TUBE (10/28/2023) ???Hold Lavender Top - SPECIMEN DISCARDED AFTER 24 HOURS. INR (10/27/2023) ???INR - 1.1???Protime (PT) - 11.5 seconds Lytes (10/28/2023) ???Sodium - 139 mmol/L???Potassium - 4.5 mmol/L???Chloride - 107 mmol/L???Bicarbonate Level - 22 mmol/L???Anion Gap - 10 Magnesium Level (10/26/2023) ???Magnesium - 1.9 mg/dL Mycophenolate Level (10/28/2023) ???Mycophenolate Level - 1.0 ??g/mL PHOSPHORUS (10/24/2023) ???Phosphorus - 3.7 mg/dL TACROLIMUS (10/25/2023) ? ?Tacrolimus Level - <0.8 ng/mL Transplant DSA Post (10/27/2023) ???Transplant DSA Post, gel tube - SPECIMEN COLLECTED FOR ANALYSIS AND FORWARDED FOR TESTING TO [facility] Urinalysis Complete (10/25/2023) ???Appear/Color, Urine - LIGHT YELLOW???Specific [place], Urine - 1.023???pH, Urine - 6.5???Albumin, Urine - 3+???Glucose, Urine - 4+???Ketones, Urine - NEGATIVE???Bilirubin, Urine - NEGATIVE???Hemoglobin, Urine - 3+???Nitrite, Urine - NEGATIVE???Leukocyte, Urine - NEGATIVE???Urobilinogen - NORMAL???WBC's, Urine - 3 /HPF???RBC's, Urine - 5 /HPF???Bacteria - SLIGHT???Squamous Epith - 2 /HPF???Hyaline Cast - 1 LPF???Mucus - SLIGHT Urine Creatinine (10/25/2023) ???Creatinine, Urine Random - 87.8 mg/dL Urine Protein/Creatinine Ratio (10/25/2023) ???Protein, Total Urine Random - 621 mg/dL???TP/Cr Ratio - 7.07???Creatinine, Urine - 87.8 mg/dL Urine Sodium (10/25/2023) ???Sodium, Urine Random - 26 mmol/L Allergies (NKA means No Known Allergies) NKA Problems Active Problems??(1) Severe obesity?? Education Materials Below is the list of Educational Leaflet Providered with your Discharge Instructions. Valuables and Belongings I fully understand and agree that [facility] accepts no responsibility for all my personal property including clothing, toilet articles, radios, jewelry, dentures, hearing aids, rings, money, or any other property that is in my possession or is brought to me after admission. I understand certain valuables may be placed in a hospital safe for a short period of time. I understand that the hospital is not liable for loss or damage due to accident, fire, or other natural occurrence while said property is in the safe. I accept full responsibility for any personal property that I keep with me, and will not hold the hospital responsible in case of loss or disappearance. I acknowledge that i have been encouraged to send valuables and belongings home. ?? Date for Pt to Sign Valuables/Belongings: 10/27/23 12:50:00 ?? Other Discharge Information ? Pulmonary Rehab Status?? Pulmonary Rehab Discharge Status?? Respiratory Rate: 20 br/min ? Common Emergency Awareness Tips IS IT A STROKE? Act FAST and Check for these signs: FACE Does the face look uneven? ARM Does one arm drift down? SPEECH Does their speech sound strange? TIME Call at any sign of stroke ?? Heart Attack Signs Chest discomfort: Most heart attacks involve discomfort in the center of the chest and lasts more than a few minutes, or goes away and comes back. It can feel like uncomfortable pressure, squeezing, fullness or pain. Discomfort in upper body: Symptoms can include pain or discomfort in one or both arms, back, neck, jaw or stomach. Shortness of breath: With or without discomfort. Other signs: Breaking out in a cold sweat, nausea, or lightheaded. Remember, MINUTES DO MATTER. If you experience any of these heart attack warning signs, call to get immediate medical attention! ?? Smoking can increase your chances of developing chronic health problems and can cause harmful effects to other family members in your house. If you smoke, you are strongly encouraged to quit. Please call [facility] [employer] Link at [phone] or [phone] Consulting ([phone]) or log in to [email or web address] for referrals to smoking cessation programs. ?? 903 Suicide & Crisis Lifeline is available 17/11 if you or someone you know needs to find a reason to keep living. By calling 083 you'll be connected to a skilled, trained counselor at a crisis center in your area. INPATIENT DISCHARGE INSTRUCTIONS SIGNATURE CARISA MAYER Location:[facility] Registration Date and Time:10/24/2023 19:55 EDT Primary Care Physician: Amaya MITCHELL, Davey Olmstead, Attending Physician: Archie MITCHELL, Mk Dyer, I CARISA MACK, have received the above patient education materials/instructions and have verbalized understanding. If ambulance or transport services are being used I further acknowledge being given a choice of service. ?? If you need to contact me, please call me at this number: . Patient/Nurse Paralegal Name: Patient/Nurse Paralegal Signature: Relationship to Patient: Witness Name/Signature: Date: Patient Care team information Care Team Personnel Name: Sissy Gutiérrez RN Position: [facility] RN Member Role: Primary Care Nurse Name: Jeffery RNMickey Position: [facility] RN Member Role: Primary Care Nurse Name: Sarwat Villafana RN Position: [facility] RN Member Role: Primary Care Nurse Name: Mary Ferrara RN Position: [facility] RN Member Role: Primary Care Nurse Name: Pebbles Mendes RN Position: [facility] RN Member Role: Primary Care Nurse Name: Kassie Jo RN Position: [facility] RN Member Role: Primary Care Nurse Name: Davey Conde MD Position: Reference Physician Member Role: PCP Address: Address: [address] [place] [id number] Name: Di Correa RN Position: [facility] AMB Nurse Member Role: Primary Care Nurse Name: Carlos Jordan MD Position: [facility] Renal MD Member Role: [employer] Consulting Physician Address: Address: [address] [place] [address] [address] [facility], [place] [address]- Name: Ayana Bach RN Position: S RN Member Role: Primary Care Nurse Name: Berlin Shin MD Position: S Renal MD Member Role: Lifetime Consulting Physician Address: Address: [address] [place] [address] [facility] [place] [address]- Name: Evan Dallas RN Position: S RN Member Role: Primary Care Nurse Care Team Related Persons Name: МАРИЯ MACK Address: home [address] [place] [address] Name: JULIO C MACK Address: [address] [place] [address]
--- NOTE | 2023-12-23 14:14 | A.OFFVIS_ITS ---
Vital Signs 12/23/23 14:15 Height 5 ft 2 in Weight 316 lb BMI 57.8 Pulse 73 Pulse Source Pulse Oximeter Temp 97.8 F Temp Source Oral Pulse Oximetry (%) 96 Oxygen Delivery Method Room Air Intake Visit Reasons: reff /recurrent uti Allergies No Known Allergies Allergy (Unknown, Verified 12/23/23 14:15) HPI HPI reff /recurrent uti: Details: She reports having dysuria as much as every couple months or so. Recently she had urine culture grow Klebsiella aerogenes resistant to Carbapenem and was placed on Bactrim DS bid for seven days. She has no symptoms now. She has symptoms about every two months. ON LICENSE OF [facility] Medical History (Updated 01/06/24 @ 22:47 by Sanaz Rivas MD) UTI (urinary tract infection) Diabetes type 2, uncontrolled Type 2 diabetes mellitus with retinopathy Obesity due to excess calories Type 2 diabetes mellitus with diabetic polyneuropathy Chronic kidney disease Retinopathy Subclinical hypothyroidism Gout Migraine headache Lupus Essential hypertension Hyperlipidemia LDL goal <100 BMI 50.0-59.9, adult Diabetes mellitus with hyperglycemia Surgical History Hx of colonoscopy Hx of adenoidectomy Hx of tonsillectomy Hx of appendectomy Hx of kidney transplant Family History Father Colon cancer Kidney disease Mother Throat cancer COPD (chronic obstructive pulmonary disease) Alzheimer disease Paternal Grandfather Colon cancer Maternal Grandfather Lung cancer Social History Household Members: Family Alcohol intake: current Alcohol intake frequency: holidays/special occasions only Patient Tobacco Use Status: Never used Tobacco Review of Systems Const All systems reviewed & are unremarkable except as noted in HPI and below Physical Exam Vital Signs: Last Vital Signs Temp 97.8 F 12/23/23 14:15 Pulse 73 12/23/23 14:15 Pulse Ox 96 12/23/23 14:15 Oxygen Delivery Method Room Air 12/23/23 14:15 BMI result Body Mass Index 57.8 Const General: cooperative Orientation/consciousness: patient oriented x3 HEENT Head: Yes normal to inspection Mouth: Normal oral and palatal mucosa present Eyes General: appearance normal, both eyes and all related structures Pupils: Equal, round and reactive pupils present Resp Effort & Inspection: normal respiratory effort Cardio Rate: regular rate Rhythm: regular rhythm GI Palpation (GI): Soft to palpation and nontender General: Yes no CVA tenderness Back/Spine/Pelvis Back: no CVA tenderness Skin General skin exam: no rashes or lesions noted Neuro General: patient oriented x3 Cranial nerves: Yes CN's II-XII intact bilaterally and Yes Equal, round and reactive pupils present Extrem General: Yes normal to inspection Psych Appearance: grossly normal Assessment & Plan Assessment & Plan (1) UTI (urinary tract infection): Comment: She has some resistance to carbapenems but Bactrim is sensitive. Code(s): N39.0 - Urinary tract infection, site not specified Category: Medical Plan: Finish course Bactrim This organism is sensitive to Bactrim and it should work. Would not give any prophylactic antibiotics as would become resistant and not helpful. Acidify urine methenamine 1 g bid if helpful. Coding Level of Care Code New Pt Level 3 (59430) Diagnoses UTI (urinary tract infection) N39.0
[2023-12-23 14:15] VITALS: PULSE 73; TEMP 36.6; O2SAT 96; BMI 57.8
== END 2023-12-23 15:29 | disposition home or self-care (01) ==
LOC: HO.HID 14:00
PROVIDERS: PCP Internal Medicine; Visit Provider Internal Medicine
DX: N39.0 Urinary tract infection, site not specified (principal)
CPT/HCPCS: 99203

== ENCOUNTER → 2023-12-23 14:00 | Outpatient (BNVA) | payer OTHER, MEDICAID, SELFPAY | PROVIDERS: PCP Internal Medicine; Visit Provider Internal Medicine | DX: N39.0 Urinary tract infection, site not specified (principal) | CPT/HCPCS: 99202 ==

== ENCOUNTER 2024-01-24 13:23 | Emergency (ER) | payer OTHER, MEDICAID, SELFPAY ==
--- NOTE | ~2024-01-24 | XR_ITS ---
EXAMINATION: XR CHEST CLINICAL INFORMATION: Cough and shortness of breath. COMPARISON: Chest radiograph 10/24/2023. TECHNIQUE: 2 views of the chest were obtained. FINDINGS: Stable prominence of the cardiomediastinal silhouette. Similar degree of bronchovascular thickening. No focal consolidation, pleural effusion or pneumothorax. No acute osseous findings. XR/XR chest 2V IMPRESSION: 1. Unchanged bronchovascular thickening that could indicate pulmonary venous congestion/hypertension and small airways disease. No consolidation or pleural effusion. 2. Unchanged prominence of the cardiomediastinal silhouette, underlying mediastinal lymphadenopathy not excluded, recommend follow-up with outpatient CT chest with intravenous contrast. Electronically signed by: Lorelei Dempsey MD 01/24/2024 03:14 PM EDT
[2024-01-24 13:33] VITALS: BP 130/79; PULSE 84; RESP 20; TEMP 36.4; O2SAT 95; BMI 55.0
--- NOTE | 2024-01-24 13:33 | ED_ITS ---
HPI - General Adult General Chief complaint: Dyspnea Stated complaint: sob Time Seen by Provider: 01/24/24 13:50 Source: patient Mode of arrival: ambulatory Limitations: no limitations History of Present Illness ED Provider: armen HPI narrative: Patient is a 63-year-old female with history of T2DM, HTN, obesity, HLD, CKD presenting to the emergency department with complaint of shortness of breath, wheezing, and nonproductive cough for the past 3 days. Repors chills with no fevers. Daughter and grandaughter sick with similar symptoms. Usingher 's inhalers and nebulizer with little relief. Reports chest tightness. MD complaint: shortness of breath Onset (ago): day(s) Treatments prior to arrival: other Related Data Home Medications ?Medication ?Instructions ?Recorded ?Confirmed insulin syringe-needle U-100 1 mL #10 ea 02/21/20 09/20/21 30 gauge x 1/2 levothyroxine 50 mcg tablet 50 mcg PO DAILY@0600 02/21/20 10/24/23 nortriptyline 25 mg capsule 25 mg PO DAILY PRN Back Pain 02/21/20 10/24/23 prednisone 5 mg tablet 5 mg PO DAILY 02/21/20 10/24/23 simvastatin 20 mg tablet 20 mg PO DAILY 02/21/20 10/24/23 acetaminophen 500 mg tablet 1,000 mg PO Q6H PRN Pain 10/24/23 10/24/23 cyclobenzaprine 10 mg tablet 10 mg PO TID PRN Muscle Spasm 10/24/23 10/24/23 doxazosin 4 mg tablet 4 mg PO BEDTIME 10/24/23 10/24/23 glipizide 2.5 mg tablet, extended 2.5 mg PO DAILY 10/24/23 10/24/23 release 24 hr insulin aspart U-100 100 unit/mL 1 sliding scale dose subcut TIDAC 10/24/23 10/24/23 subcutaneous solution (Novolog U-100 Insulin aspart) insulin degludec 200 unit/mL (3 130 unit subcut DAILY diabetes 10/24/23 10/24/23 mL) subcutaneous pen (Tresiba FlexTouch U-200 insulin) metoprolol tartrate 100 mg tablet 100 mg PO BID 10/24/23 10/24/23 mycophenolate mofetil 500 mg tablet 1,500 mg PO BID 10/24/23 10/24/23 omeprazole 20 mg capsule,delayed 20 mg PO DAILY@0630 10/24/23 10/24/23 release semaglutide 0.25 mg or 0.5 mg (2 0.25 mg subcut QWEEK 12/23/23 mg/3 mL) subcutaneous pen injector (Ozempic) Previous Rx's ?Medication ?Instructions ?Recorded flash glucose scanning reader #1 ea 02/25/21 (FreeStyle Neetu 2 [place]) flash glucose sensor (FreeStyle #2 ea 02/25/21 Neetu 2 Sensor kit) albuterol sulfate 90 mcg/actuation 2 puff inhalation Q4-6H PRN 01/24/24 aerosol inhaler shortness of breath or wheezing #6.7 grams benzonatate 100 mg capsule 100 mg PO TID PRN cough #20 caps 01/24/24 prednisone 20 mg tablet 40 mg (2 x 20 mg) PO DAILY #10 tabs 01/24/24 Allergies Allergy/AdvReac Type Severity Reaction Status Date / Time No Known Allergies Allergy Unknown Verified 01/24/24 13:37 Review of Systems Review of Systems: As per HPI. Yes all other systems are reviewed and are negative Constitutional: Constitutional: Reports as per HPI [facility] Past Medical History Medical History (Updated 01/24/24 @ 17:35 by Chika Do NP) UTI (urinary tract infection) Diabetes type 2, uncontrolled Type 2 diabetes mellitus with retinopathy Obesity due to excess calories Type 2 diabetes mellitus with diabetic polyneuropathy Chronic kidney disease Retinopathy Subclinical hypothyroidism Gout Migraine headache Lupus Essential hypertension Hyperlipidemia LDL goal <100 BMI 50.0-59.9, adult Diabetes mellitus with hyperglycemia Surgical History Hx of colonoscopy Hx of adenoidectomy Hx of tonsillectomy Hx of appendectomy Hx of kidney transplant Family History Family History Father Colon cancer Kidney disease Mother Throat cancer COPD (chronic obstructive pulmonary disease) Alzheimer disease Paternal Grandfather Colon cancer Maternal Grandfather Lung cancer Social History Social History Household Members: Family Alcohol intake: current Alcohol intake frequency: holidays/special occasions only Patient Tobacco Use Status: Never used Tobacco Advance Directives: No Advance Directives Information Provided: Yes Physical Exam ED Vital Signs: Vital Signs - 24 hr 01/24/24 13:33 01/24/24 14:01 01/24/24 14:16 Temperature 97.6 F Pulse Rate 84 74 77 Respiratory Rate 20 27 H 18 Blood Pressure 130/79 140/74 H Pulse Oximetry 95 94 Oxygen Delivery Method Room Air Room Air 01/24/24 14:58 01/24/24 16:02 Temperature 98.2 F Pulse Rate 82 87 Respiratory Rate 25 H 20 Blood Pressure 171/79 H Pulse Oximetry 95 Oxygen Delivery Method Room Air BMI result Body Mass Index 55.0 Vital signs have been reviewed and appear to be correct. Blood pressure elevated. Heart rate normal. Respiratory rate normal. Temperature normal. Oxygen saturation normal. Const General: cooperative and no acute distress Nutritional Appearance: obese Orientation/consciousness: oriented to person, oriented to place, oriented to time and patient oriented x3 Limitations: no limitations HENMT Head: Yes normocephalic and Yes atraumatic Ears: external ears normal General nose exam: Normal external nose present Face and sinus: Yes face symmetric Mouth: oropharynx normal and moist mucous membranes Throat: Yes uvula midline Eyes Pupils: Equal, round and reactive pupils present Neck Neck: Yes normal visual inspection and Yes supple Resp Effort & Inspection: normal respiratory effort and able to speak in complete sentences Auscultation: wheezes expiratory wheezes, inspiratory wheezes and throughout Cardio Rate: regular rate Rhythm: regular rhythm Heart sounds: S1 normal heart sound present and S2 normal heart sound present GI Palpation (GI): Soft to palpation and nontender Auscultation: normoactive bowel sounds General: Yes no CVA tenderness Back/Spine/Pelvis Back: no CVA tenderness Skin General skin exam: elasticity normal and turgor normal Neuro General: oriented to person, oriented to place, oriented to time, patient oriented x3, moves all extremities, no focal motor deficits and CN's II-XI intact bilaterally Cranial nerves: Yes Equal, round and reactive pupils present Cognition (Neuro): normal cognition Extrem General: Yes full ROM, Yes no pedal edema and Yes no calf tenderness Psych Mental Status: mental status grossly normal Affect: normal affect Thought process: Normal thought process present Course Course Course Narrative: This is an RME performed by Gudelia Blair CNP: Additional HPI, ROS, PE not included below will be deferred to primary provider. Patient is a 63-year-old female who presents emergency department for evaluation of 3 days with wheezing, no relief from home inhalers and nebulizer. Associated some signs discomfort due to coughing, nonproductive cough. Symptoms feeling worse today. She has been around her granddaughter who has recently been ill Plan: Viral serologies, CXR, audible across the room wheezing Medications Administered Discontinued Medications Generic Name Dose Route Start Last Admin Trade Name Freq PRN Reason Stop Dose Admin Albuterol Sulfate 5 mg/ 7.5 mg 01/24/24 14:58 01/24/24 15:02 Albuterol Sulfate 2.5 mg INHALE 01/24/24 14:59 7.5 mg ONCE ONE Administration Albuterol Sulfate 5 mg/ 0 mg 01/24/24 14:02 01/24/24 14:08 Albuterol/Ipratropium 3 ml INHALE 01/24/24 14:03 7.5 each ONCE ONE Administration Magnesium Sulfate 2 gm in 50 mls @ 25 mls/hr 01/24/24 15:03 01/24/24 17:10 Magnesium Sulfate/H2o IV 01/24/24 17:02 Infused ONCE ONE Infusion Methylprednisolone Sodium Succinate 125 mg 01/24/24 15:03 01/24/24 15:44 Methylprednisolone Sod Succ 125 Mg/2 Ml Vial IVPUSH 01/24/24 15:04 125 mg ONCE ONE Administration Medical Decision Making Medical Decision Making MDM Narrative: Patient is a 63-year-old female with history of T2DM, HTN, obesity, HLD, CKD presenting to the emergency department with complaint of shortness of breath, wheezing, and nonproductive cough for the past 3 days. On exam patient is awake , A+Ox3, VS WNL, afebrile, normal neurological exam without focal deficits, physical exam findings as above. Given reported symptoms and physical exam findings, initial differential includes viral illness, COVID, flu, RSV, bronchitis, pneumonia. Viral serology negative. X-ray chest notable for no evidence of pneumonia, bronchovascular thickening consistent with small airways disease. My interpretation is in agreement with the radiologist's interpretation. Symptoms improved with medications given in the ED. Discussed with patient that symptoms are likely due to viral illness. Will discharge home on course of prednisone, discussed with patient that this can elevate her blood glucose levels so she should monitor this closely. Will also send prescription for benzonatate and albuterol inhaler. Instructed patient follow-up with PCP. Return precautions discussed at bedside. Patient verbalized understanding of and agreement with plan. Differential Diagnosis Differential Diagnoses: The differential diagnosis associated with the presentation includes As per [facility]. Admission/Observation Consideration of admission/observation: Escalation of care including admission/observation considered Patient would have been admitted to the hospital had their work up had any findings where hospital admission was appropriate and their clinical presentation warranted hospital admission. Lab Data [facility] Lab Attestation statement: I reviewed the patient's lab results. As per [facility] Labs: Lab Results 01/24/24 Range/Units 13:57 Influenza Type A (PCR) NEGATIVE (Negative) Influenza Type B (PCR) NEGATIVE (Negative) RSV RNA Qual (PCR) NEGATIVE (Negative) SARS-CoV-2 RNA (RT-PCR) NEGATIVE (Negative) Independent Interpretation I performed an independent interpretation of an: Plain X-Ray Interpretation: XR/XR chest 2V IMPRESSION: 1. Unchanged bronchovascular thickening that could indicate pulmonary venous congestion/hypertension and small airways disease. No consolidation or pleural effusion. 2. Unchanged prominence of the cardiomediastinal silhouette, underlying mediastinal lymphadenopathy not excluded, recommend follow-up with outpatient CT chest with intravenous contrast. External Record Review External record reviewed: Inpatient record, Office record and Outpatient record Prescription Management I considered prescription management with: Other Discharge Plan Discharge Clinical Impression: Upper respiratory infection, viral Patient Disposition: Home, Self-Care Instructions: Upper Respiratory Infection (DC), Viral Syndrome (ED), Wheezing (ED) Additional Instructions: You were evaluated in the emergency department today for shortness of breath and cough. Your Covid, flu, and RSV tests were all negative. Your x-ray was without evidence of pneumonia. Your symptoms are likely related to a viral illness which will resolve on its own with time and rest. You should ensure adequate fluid intake, and can use Tylenol 650 mg or ibuprofen 600 mg every 6 hours as needed for fever or discomfort. You have been prescribed a short course of prednisone which is a steroid to decrease inflammation. You have been prescribed benzonatate which you can use every 8 hours as needed for cough. Please follow-up with your primary care provider this week. Return to the emergency department if you develop chest pain, worsening shortness of breath, difficulty swallowing, fever 100.4? F or greater or any other concerning symptoms. Prescriptions: New prednisone 20 mg tablet 40 mg PO DAILY Qty: 10 0RF benzonatate 100 mg capsule 100 mg PO TID PRN (Reason: cough) Qty: 20 0RF albuterol sulfate 90 mcg/actuation HFA aerosol inhaler 2 puff inhalation Q4-6H PRN (Reason: shortness of breath or wheezing) Qty: 6.7 0RF No Action cyclobenzaprine 10 mg tablet 10 mg PO TID PRN (Reason: Muscle Spasm) metoprolol tartrate 100 mg tablet 100 mg PO BID glipizide 2.5 mg tablet extended release 24hr 2.5 mg PO DAILY omeprazole 20 mg capsule,delayed release(DR/EC) 20 mg PO DAILY@0630 doxazosin 4 mg tablet 4 mg PO BEDTIME insulin degludec [Tresiba FlexTouch U-200] 200 unit/mL (3 mL) insulin pen 130 unit subcut DAILY mycophenolate mofetil 500 mg tablet 1,500 mg PO BID insulin aspart U-100 [Novolog U-100 Insulin aspart] 100 unit/mL solution 1 sliding scale dose subcut TIDAC acetaminophen 500 mg Tablet 1,000 mg PO Q6H PRN (Reason: Pain) (DME) insulin syringe-needle U-100 1 mL 30 gauge x 1/2 syringe See Rx Instructions .ROUTE .MEDSUPPLY Qty: 10 Rx Instructions: As directed prednisone 5 mg tablet 5 mg PO DAILY simvastatin 20 mg tablet 20 mg PO DAILY levothyroxine 50 mcg tablet 50 mcg PO DAILY@0600 nortriptyline 25 mg capsule 25 mg PO DAILY PRN (Reason: Back Pain) (DME) FreeStyle Neetu 2 Sensor Kit See Rx Instructions .ROUTE .MEDSUPPLY Qty: 2 11RF Rx Instructions: As directed every 2 weeks (DME) FreeStyle Neetu 2 [place] Misc See Rx Instructions .ROUTE .MEDSUPPLY Qty: 1 0RF Rx Instructions: As directed Ozempic 0.25 mg or 0.5 mg (2 mg/3 mL) pen injector 0.25 mg subcut QWEEK Rx Instructions: for 4 weeks Print Language: [place]
[2024-01-24 14:01] VITALS: PULSE 74; RESP 27; O2SAT 94
[2024-01-24] MEDS: Albuterol Sulfate 5 MG, Albuterol/Iprat 2.5/0.5MG 3 ML 3 ML INHALE (14:08)
[2024-01-24 14:16] VITALS: BP 140/74; PULSE 77; RESP 18; O2SAT 94
[2024-01-24 14:38] LABS: Influenza A PCR NEGATIVE (Negative); Influenza B PCR NEGATIVE (Negative); Resp Syncy Virus RNA Qual PCR NEGATIVE (Negative); SARS COV2 PCR INHOUSE NEGATIVE (Negative)
[2024-01-24 14:58] VITALS: PULSE 82; RESP 25; O2SAT 94
[2024-01-24] MEDS: Albuterol Sulfate 5 MG, Albuterol Sulfate (0.083%) 2.5 MG 7.5 MG INHALE (15:02)
[2024-01-24] MEDS: Magnesium Sulfate/H2O 2 GM/50 ML PIGGYBACK IV (15:44)
[2024-01-24] MEDS: methylPREDNISolone Sod Succ 125 MG/2 ML VIAL IVPUSH (15:44)
[2024-01-24 16:02] VITALS: BP 171/79; PULSE 87; RESP 20; TEMP 36.8; O2SAT 95
[2024-01-24 18:11] VITALS: BP 174/91; PULSE 86; RESP 20; TEMP 36.9; O2SAT 94
== END 2024-01-24 18:41 | disposition home or self-care (01) ==
PROVIDERS: Nurse Practitioner Family; Emergency Provider Emergency Medicine Emergency Medical Services; PCP Internal Medicine
DX: J06.9 Acute upper respiratory infection, unspecified (principal); R06.02 Shortness of breath; I10 Essential (primary) hypertension; Z79.899 Other long term (current) drug therapy; Z03.818 Encounter for observation for suspected exposure to other biological agents ruled out
CPT/HCPCS: 0241U; 71046; 94640; 99284; J2919; J3475

== ENCOUNTER 2024-02-12 11:01 | Outpatient (REF) | payer OTHER, MEDICAID, SELFPAY ==
--- NOTE | ~2024-02-12 | XR_ITS ---
EXAMINATION: XR CHEST CLINICAL INFORMATION: Cough. COMPARISON: January 24, 2024 TECHNIQUE: 2 views of the chest were obtained. FINDINGS: The lungs are moderately expanded. No focal consolidation. No pleural effusion. Cardiac silhouette is unchanged. XR/XR chest 2V IMPRESSION: No acute abnormality. Electronically signed by: Javan Pradhan MD 02/15/2024 03:40 PM EDT
== END 2024-02-12 11:02 | disposition home or self-care (01) ==
LOC: HO.HMGCX 11:01
PROVIDERS: PCP Internal Medicine; Visit Provider Internal Medicine
DX: R05.9 Cough, unspecified (principal)
CPT/HCPCS: 71046

== ENCOUNTER 2024-04-04 10:42 | Outpatient (REF) | payer OTHER, MEDICAID, SELFPAY ==
[2024-04-04 13:42] LABS: Blood Urea Nitrogen 33 mg/dL (9-16); Estimated Glomerular Filt Rate 26
--- OUTSIDE RECORDS SUMMARY | 2024-04-06 14:48 | XMS_ITS | Continuity of Care Document ---
Author Organization [facility] Address [address] [place] [address]- Care Team Providers Care Dental Laboratory Manager Name Role Phone Amaya MITCHELL, Davey Olmstead Primary Care Physician [phone] Encounter [facility] Date(s): 02/05/24 - 03/06/24 [facility] [address] [place] [id number] Allergies, Adverse Reactions, Alerts No Known Allergies Immunizations Given and Recorded Vaccine Date Status Refusal Reason influenza virus vaccine, inactivated 01/31/24 Give n SARS-CoV-2 (COVID-19) mRNA BNT-162b2 vac 01/10/21 Recorded Medications acetaminophen-HYDROcodone 325 mg-5 mg oral tablet 1 tablet, By Mouth, Every 4 hours, PRN as needed for pain, 0 Refills, Maintenance, 12/01/23 13:53:00 EDT, Tablet, Partial fill upon patient request if the prescription is for a schedule II opioid drug. Start Date: 12/01/23 Status: Ordered acetaminophen/butalbital/caffeine 325 mg-50 mg-40 mg oral tablet 1 tablet, By Mouth, PRN as needed, # 30 tablet, 0 Refills, Maintenance, 12/01/23 13:53:00 EDT, Tablet, Partial fill upon patient request if the prescription is for a schedule II opioid drug. Start Date: 12/01/23 Status: Ordered belatacept = 5 mg/kg, IV Infusion, 0 Refills, Maintenance, 02/10/21 9:21:00 EDT, Partial fill upon patient request if the prescription is for a schedule II opioid drug. Start Date: 02/10/21 Status: Ordered cholecalciferol 2000 intl units oral capsule 1 Unknown, Oral, 3 Refill(s), Take 1 tablet by mouth 1 (one) time each day, 0 Refills, 09/14/23 20:00:00 EDT, Partial fill upon patient request if the prescription is for a schedule II opioid drug. Start Date: 09/14/23 Status: Ordered Coreg 25 mg oral tablet 25 mg, 1, tablet, By Mouth, 2 times a day, # 60 tablet, Refills 0, Tot. Refills 0, Maintenance, 02/03/24 10:59:00 EDT, Route to Pharmacy Electronically, [facility], Partial fill upon patient request if the prescription is for a schedule... Start Date: 02/03/24 Stop Date: 03/04/24 Status: Ordered cyclobenzaprine 10 mg oral tablet 10 mg, 1, tablet, By Mouth, 3 times a day, PRN, # 30 tablet, Refills 0, Maintenance, for spasm, 10/25/23 2:52:00 EDT, Partial fill upon patient request if the prescription is for a schedule II opioiddrug. Start Date: 10/25/23 Status: Ordered doxazosin 4 mg oral tablet 1 tablet = 4 mg, By Mouth, Daily, # 30 tablet, 0 Refills, Maintenance, 10/25/23 2:51:00 EDT, Tablet, Partial fill upon patient request if the prescription is for a schedule II opioid drug. Start Date: 10/25/23 Status: Ordered ergocalciferol 55283 iu oral capsule 50,000 International_Units, 1, capsule, By Mouth, Every week, # 12 capsule, Refills 0, Maintenance,12/01/23 13:54:00 EDT, Partial fill upon patient request if the prescription is for a schedule II opioid drug. Start Date: 12/01/23 Status: Ordered insulin aspart 100 units/mL subcutaneous solution 7-19 units, Subcutaneous Injection, 3 times a day before meals, 100 - 149 7 units 150 - 199 9 [id number] - 249 11 units 250 - 299 13 units 300 - 349 15 units 350 - 399 17 units 400 - 449 19 units, # 15 mL, 0 Refills, Maintenan... Start Date: 10/28/23 Status: Ordered Lasix 40 mg oral tablet 40 mg, 1, tablet, By Mouth, Daily, # 30 tablet, Refills 0, Tot. Refills 0, Maintenance, 02/03/24 11:45:00 EDT, Route to Pharmacy Electronically, [facility], Partial fill upon patient request if the prescription is for a schedule II opioi... Start Date: 02/03/24 Stop Date: 03/04/24 Status: Ordered levothyroxine 0.05 mg oral tablet [...] opioid drug. Start Date: 10/25/23 Status: Ordered NIFEdipine 30 mg oral tablet, extended release 30 mg, 1, tablet, By Mouth, Daily, # 30 tablet, Refills 0, Tot. Refills 0, Maintenance, 02/03/24 11:26:00 EDT, Route to Pharmacy Electronically, [facility], Partial fill upon patient request if the prescription is for a schedule II opioi... Start Date: 02/03/24 Stop Date: 03/04/24 Status: Ordered omeprazole 20 mg oral enteric coated capsule 90 each, 0 Refill(s), TAKE 1 CAPSULE BY MOUTH EVERY DAY, 0 Refills, 01/01/24 10:28:00 EDT, Partial fill upon patient request if the prescription is for a schedule II opioid drug. Start Date: 01/01/24 Status: Ordered Ozempic 2 mg/3 mL (0.25 mg or 0.5 mg dose) subcutaneous solution = 0.5 mg, Subcutaneous Injection, Every week, rotate injection sites, # 1 each, 0 Refills, Maintenance, 01/30/24 20:00:00 EDT, Solution, Partial fill upon patient request if the prescription is for aschedule II opioid drug. Start Date: 01/30/24 Status: Ordered Ozempic 8 mg/3 mL (2 mg dose) subcutaneous solution = 2 mg, Subcutaneous Injection, Every week, in the abdomen, thigh, or upper arm, # 3 mL, 6 Refills,Maintenance, 02/26/24 13:57:00 EDT, Solution, [id number], Partial fill upon patient request if the prescription is for a schedule II o... Start Date: 02/26/24 Status: Ordered predniSONE 5 mg oral tablet See Instructions, after a long taper was on 5 mg , completed 40 mg 5 days as inpatient , can be discharged on 5 mg as per renal again., 0 Refills, Maintenance, 09/28/18 14:29:57 EDT Start Date: 09/28/18 Status: Ordered simvastatin 20 mg oral tablet 20 mg, 1, tablet, By Mouth, Daily at bedtime, # 30 tablet, Refills 0, Maintenance, 10/25/23 2:50:00EDT, Partial fill upon patient request if the prescription is for a schedule II opioid drug. Start Date: 10/25/23 Status: Ordered Tresiba FlexTouch 200 units/mL subcutaneous solution See Instructions, Take 42 units daily in the AM. E11.9, # 27 mL, 5 Refills, Maintenance, 01/01/24 11:45:00 EDT, Solution, [facility] #[id number], Partial fill upon patient request if the prescription is for a schedule II opioid drug., 158, cm, 09... Start Date: 01/01/24 Status: Ordered Problem List Condition Confirmation Course Effective Dates Status Health St atus Informant Severe obesity Confirmed Active Patient Care team information Care Team Personnel Name: Ernie Mcginnis RN Position: S RN Member Role: Primary Care Nurse Name: Sissy Gutiérrez RN Position: S RN Member Role: Primary Care Nurse Name: Mickey Jeffery RN Position: S RN Member Role: Primary Care Nurse Name: Merline Elliott RN Position: S RN Member Role: Primary Care Nurse Name: Sarwat Villafana RN Position: S RN Member Role: Primary Care Nurse Name: Mary Ferrara RN Position: S RN Member Role: Primary Care Nurse Name: Pebbles Mendes RN Position: S RN Member Role: Primary Care Nurse Name: Kassie Jo RN Position: S RN Member Role: Primary Care Nurse Name: Destinee Bonilla RN Position: S RN Member Role: Primary Care Nurse Name: Amaya MITCHELL, Davey Olmstead Position: Reference Physician Member Role: PCP Address: Address: [address] [place] [address]- [place] Name: Melvina Jorge RN Position: S RN Member Role: Primary Care Nurse Name: Di Correa RN Position: [facility] AMB Nurse Member Role: Primary Care Nurse Name: Carlos Jordan MD Position: [facility] Renal MD Member Role: Lifetime Consulting Physician Address: Address: [address] [place] [address] [address] [facility] [place] [address]- Name: Berlin Shin MD Position: [facility] Renal MD Member Role: Lifetime Consulting Physician Address: Address: [address] [place] [address] [address] [facility] [place] [address]- Name: Evan Dallas RN Position: [facility] RN Member Role: Primary Care Nurse Care Team Related Persons Name: МАРИЯ MACK Address: [address] [place] [address] Name: JULIO C MACK Address: [address] [place] [address]
--- OUTSIDE RECORDS SUMMARY | 2024-04-06 14:48 | XMS_ITS ---
Author Name [facility] Organization Unknown Problems Problem Status Onset Date Problem Type Date of Resolution Source Lupus anticoagulant disorder (HCC) active Encounter[facility]osisAct [facility]
--- OUTSIDE RECORDS SUMMARY | 2024-04-06 14:48 | XMS_ITS | Patient Health Record ---
Author Organization [facility] [place] Address [address] [place] [address] Care Team Providers Care Repairer Art Objects Name Role Phone Davey Conde MD Primary Care Provider Unavailab Radhames Fischer Unavailable [phone] Allergies No Known Allergies Reason For Referral No Information Medications Medication SIG (Take, Route, Frequency, Duration) Notes Start Date End Date Status Gcqpaetaic-TKTH-Qgowhden 50-325-40 MG TAKE 1 TABLET BY MOUTH EVERY 4 HOURS. NO MORE THAN 3 TIMES A WEEK Oral for 5 Days Unknown Furosemide 40 MG Oral for 30 Days Unknown Cyclobenzaprine HCl 10 MG Oral for 30 Days Unknown Vitamin D (Ergocalciferol) 1.25 MG (37269 UT) Oral for 84 Days Unkno wn Omeprazole 20 MG TAKE 1 CAPSULE BY MO UTH EVERY DAY Oral for 90 Days Unknown hydrALAZINE HCl 50 MG Oral for 90 Days Unknown Combivent Respimat 20-100 MCG/ACT Inhalation for 30 Days Unkno wn Tresiba FlexTouch 200 UNIT/ML ADMINISTER 125 UNITS UNDER THE SKIN DAILY IN THE MORNING Subcutaneous for 42 Days Unknown Metoprolol Tartrate 100 MG Oral for 10 Days Unknown Simvastatin 20 MG Oral for 90 Days Unknown Combivent Respimat 20-100 MCG/ACT INHALE 1 PUFF BY MOUTH FOUR TIMES DAILY. MAY TAKE ADDITIONAL PUFFS NEEDED. NOT TO EXCEED 6 PUFFS IN 24 HOURS Inhalation for 30 Days Unknown Doxazosin Mesylate 4 MG Oral for 85 Days Unknown Ozempic (2 MG/DOSE) 8 MG/3ML Subcutaneous for 28 Days Unk nown metFORMIN HCl 1000 MG Oral for 90 Days Unknown predniSONE 5 MG Oral for 90 Days Unknown Nortriptyline HCl 25 MG TAKE 1 CAPSULE B Y MOUTH DAILY Oral for 90 Days Unknown NovoLOG FlexPen 100 UNIT/ML Subcutaneous for 24 Days Unknown Cyclobenzaprine HCl 10 MG TAKE 1 TABLET BY MOUTH THREE TIMES DAILY NEEDED Oral for 30 Days Unknown Carvedilol 25 MG Oral for 90 Days Unknown hydrALAZINE HCl 50 MG TAKE 1 TABLET BY M OUTH TWICE DAILY Oral for 90 Days Unknown HYDROcodone-Acetaminophen 5-325 MG TAKE 1 TABLET BY MOUTH TWICE DAILY Oral for 7 Days Unknown Albuterol Sulfate HFA 108 (90 Base) MCG/ACT Inhalation for 16 Days Unknown Levothyroxine Sodium 50 MCG Oral for 90 Days Unknown Benzonatate 100 MG TAKE 1 CAPSULE BY MO UT THREE TIMES DAILY NEEDED FOR COUGH Oral for 6 Days Unknown Social History Tobacco Use: Social [...] Negative Encounters Encounter Location Date Provider Diagnosis [facility] [address] [address] 04/05/2024 Radhames Borja Plan Of Treatment No Information Insurance Providers Payer Name Payer Address Payer Phone Subscriber Number Group Number Insured Name Patient Relationship to Insured Coverage Start Date Coverage End Date [employer] [address] [address] [place] [address] [phone] [id number] Queenie Krishna Self - patient is the insured Medical (General) History Medical History History ICD Code Arthritis Back,Hip,and Knee pain Diabetic Headaches/Migraines Kidney disease Numbness Chicken pox Lupus
--- OUTSIDE RECORDS SUMMARY | 2024-04-06 14:48 | XMS_ITS | Continuity of Care Document ---
Author Organization [facility] Address [address] [place] [id number]- Care Team Providers Care Men'S Custom Hair Piece Consultant Name Role Phone Amaya MITCHELL, Davey Olmstead Primary Care Physician [phone] Encounter [facility] Date(s): 02/08/24 - 03/23/24 [facility] [address] [place] [address] Encounter Diagnosis Type 2 diabetes mellitus with hyperglycemia(Discharge Diagnosis) - 02/12/24 CKD (chronic kidney disease) stage 4, GFR 15-29 ml/min(Discharge Diagnosis) - 02/12/24 Severe obesity(Discharge Diagnosis) - 02/12/24 Attending Physician: Regan Bledsoe MD Admitting Physician: Regan Bledsoe MD Encounter Type: Pre-OutPatient One Time Allergies, Adverse Reactions, Alerts No Known Allergies Immunizations Given and Recorded Vaccine Date Status Refusal Reason influenza virus vaccine, inactivated 01/31/24 Give n SARS-CoV-2 (COVID-19) mRNA BNT-162b2 vac 01/10/21 Recorded Medications acetaminophen-HYDROcodone 325 mg-5 mg oral tablet 1 tablet, By Mouth, Every 4 hours, PRN as needed for pain, 0 Refills, Maintenance, 12/01/23 1:53:00 PM EDT, Tablet, Partial fill upon patient request if the prescription is for a schedule II opioid drug. Start Date: 12/01/23 Status: Ordered Repeat number: 1 acetaminophen/butalbital/caffeine 325 mg-50 mg-40 mg oral tablet 1 tablet, By Mouth, PRN as needed, # 30 tablet, 0 Refills, Maintenance, 12/01/23 1:53:00 PM EDT, Tablet, Partial fill upon patient request if the prescription is for a schedule II opioid drug. Start Date: 12/01/23 Status: Ordered Quantity: 30.0 Unit: tablet Repeat number: 1 belatacept = 5 mg/kg, IV Infusion, 0 Refills, Maintenance, 02/10/21 9:21:00 AM EDT, Partial fill upon patient request if the prescription is for a schedule II opioid drug. Start Date: 02/10/21 Status: Ordered Repeat number: 1 cholecalciferol 2000 intl units oral capsule 1 Unknown, Oral, 3 Refill(s), Take 1 tablet by mouth 1 (one) time each day, 0 Refills, 09/14/23 8:00:00 PM EDT, Partial fill upon patient request if the prescription is for a schedule II opioid drug. Start Date: 09/14/23 Status: Ordered Repeat number: 1 Coreg 25 mg oral tablet 25 mg, 1, tablet, By Mouth, 2 times a day, # 60 tablet, Refills 0, Tot. Refills 0, Maintenance, 02/03/24 10:59:00 AM EDT, Route to Pharmacy Electronically, [facility], Partial fill upon patient request if the prescription is for a schedule II opioid drug., 158, cm, 02/03/24 7:41:00 EDT, Height, 140.9, kg, 01/30/24 22:21:00 EDT, Dry Weight Start Date: 02/03/24 Stop Date: 03/04/24 Status: Ordered Quantity: 60.0 Unit: tablet Repeat number: 1 cyclobenzaprine 10 mg oral tablet 10 mg, 1, tablet, By Mouth, 3 times a day, PRN, # 30 tablet, Refills 0, Maintenance, for spasm, 10/25/23 2:52:00 AM EDT, Partial fill upon patient request if the prescription is for a schedule II opioid drug. Start Date: 10/25/23 Status: Ordered Quantity: 30.0 Unit: tablet Repeat number: 1 doxazosin 4 mg oral tablet 1 tablet = 4 mg, By Mouth, Daily, # 30 tablet, 0 Refills, Maintenance, 10/25/23 2:51:00 AM EDT, Tablet, Partial fill upon patient request if the prescription is for a schedule II opioid drug. Start Date: 10/25/23 Status: Ordered Quantity: 30.0 Unit: tablet Repeat number: 1 ergocalciferol 37324 iu oral capsule 50,000 International_Units, 1, capsule, By Mouth, Every week, # 12 capsule, Refills 0, Maintenance,12/01/23 1:54:00 PM EDT, Partial fill upon patient request if the prescription is for a schedule II opioid drug. Start Date: 12/01/23 Status: Ordered Quantity: 12.0 Unit: capsule Repeat number: 1 insulin aspart 100 units/mL subcutaneous solution 7-19 units, Subcutaneous Injection, 3 times a day before meals, 100 - 149 7 units 150 - 199 9 - 249 11 units 250 - 299 13 units 300 - 349 15 units 350 - 399 17 units 400 - 449 19 units, # 15 mL, 0 Refills, Maintenance, 10/28/23 4:33:00 PM EDT, [facility], Partial fill upon patient request if the prescription is for a schedule II opioid drug., 157, cm, 10/27/23 14:48:00 EDT, Height, 142, kg, 10/24/23 21:23:00 EDT, Dry Weight Start Date: 10/28/23 Status: Ordered Quantity: 15.0 Unit: mL Repeat number: 1 Lasix 40 mg oral tablet 40 mg, 1, tablet, By Mouth, Daily, # 30 tablet, Refills 0, Tot. Refills 0, Maintenance, 02/03/24 11:45:00 AM EDT, Route to Pharmacy Electronically, [facility], Partial fill upon patient request if the prescription is for a schedule II opioid drug., 158, cm, 02/03/24 7:41:00 EDT, Height, 140.9, kg, 01/30/24 22:21:00 EDT, Dry Weight Start Date: 02/03/24 Stop Date: 03/04/24 Status: Ordered Quantity: 30.0 Unit: tablet Repeat number: 1 levothyroxine 0.05 mg oral tablet 1 tablet = 50 mcg, By Mouth, Daily, # 30 tablet, 0 Refills, Maintenance, 10/25/23 2:51:00 AM EDT, Tablet, Partial fill upon patient request if the prescription is for a schedule II opioid drug. Start Date: 10/25/23 Status: Ordered Quantity: 30.0 Unit: tablet Repeat number: 1 mycophenolate mofetil 500 mg oral tablet 3 tablet = 1,500 mg, By Mouth, 2 times a day, # 180 tablet, 0 Refills, Maintenance, 10/25/23 2:49:00AM EDT, Tablet, Partial fill upon patient request if the prescription is for a schedule II opioid drug. Start Date: 10/25/23 Status: Ordered Quantity: 180.0 Unit: tablet Repeat number: 1 NIFEdipine 30 mg oral tablet, extended release 30 mg, 1, tablet, By Mouth, Daily, # 30 tablet, Refills 0, Tot. Refills 0, Maintenance, 02/03/24 11:26:00 AM EDT, Route to Pharmacy Electronically, [facility], Partial fill upon patient request if the prescription is for a schedule II opioid drug., 158, cm, 02/03/24 7:41:00 EDT, Height, 140.9, kg, 01/30/24 22:21:00 EDT, Dry Weight Start Date: 02/03/24 Stop Date: 03/04/24 Status: Ordered Quantity: 30.0 Unit: tablet Repeat number: 1 omeprazole 20 mg oral enteric coated capsule 90 each, 0 Refill(s), TAKE 1 CAPSULE BY MOUTH EVERY DAY, 0 Refills, 01/01/24 10:28:00 AM EDT, Partialfill upon patient request if the prescription is for a schedule II opioid drug. Start Date: 01/01/24 Status: Ordered Repeat number: 1 Ozempic 2 mg/3 mL (0.25 mg or 0.5 mg dose) subcutaneous solution = 0.5 mg, Subcutaneous Injection, Every week, rotate injection sites, # 1 each, 0 Refills, Maintenance, 01/30/24 8:00:00 PM EDT, Solution, Partial fill upon patient request if the prescription is for a schedule II opioid drug. Start Date: 01/30/24 Status: Ordered Quantity: 1.0 Unit: each Repeat number: 1 Ozempic 8 mg/3 mL (2 mg dose) subcutaneous solution = 2 mg, Subcutaneous Injection, Every week, in the abdomen, thigh, or upper arm, # 3 mL, 6 Refills,Maintenance, 02/26/24 1:57:00 PM EDT, Solution, [facility][id number], Partial fill upon patient request if the prescription is for a schedule II opioid drug., 158, cm, 02/26/24 12:48:00 EDT, Height, 140.9, kg, 01/30/24 22:21:00 EDT, Dry Weight Start Date: 02/26/24 Status: Ordered Quantity: 3.0 Unit: mL Repeat number: 7 Indication: Type 2 diabetes mellitus with hyperglycemia predniSONE 5 mg oral tablet See Instructions, after a long taper was on 5 mg , completed 40 mg 5 days as inpatient , can be discharged on 5 mg as per renal again., 0 Refills, Maintenance, 09/28/18 2:29:57 PM EDT Start Date: 09/28/18 Status: Ordered Repeat number: 1 simvastatin 20 mg oral tablet 20 mg, 1, tablet, By Mouth, Daily at bedtime, # 30 tablet, Refills 0, Maintenance, 10/25/23 2:50:00 AM EDT, Partial fill upon patient request if the prescription is for a schedule II opioid drug. Start Date: 10/25/23 Status: Ordered Quantity: 30.0 Unit: tablet Repeat number: 1 Tresiba FlexTouch 200 units/mL subcutaneous solution See Instructions, Take 42 units daily in the AM. E11.9, # 27 mL, 5 Refills, Maintenance, 01/01/24 11:45:00 AM EDT, Solution, [facility] #[id number], Partial fill upon patient request if the prescription is for a schedule II opioid drug., 158, cm, 01/01/24 10:22:00 EDT, Height, 138.7, kg, 12/01/23 13:22:00 EDT, Dry Weight Start Date: 01/01/24 Status: Ordered Quantity: 27.0 Unit: mL Repeat number: 6 Problem List Condition Confirmation Course Effective Dates Status Health St atus Informant Severe obesity Confirmed Active Diagnosis Diagnosis Type Effective Dates Health Status Clinical Service Informant Type 2 diabetes mellitus with hyperglycemia Discharge Diagnosis 02/12/24 CKD (chronic kidney disease) stage 4, GFR 15-29 ml/min Discharge Diagnosis 02/12/24 Severe obesity Discharge Diagnosis 02/12/24 Patient Care team information Care Team Personnel Name: Ernie Mcginnis RN Position: [facility] RN Member Role: Primary Care Nurse Name: Sissy Gutiérrez RN Position: [facility] RN Member Role: Primary Care Nurse Name: Jeffery RNMickey Position: S RN Member Role: Primary Care Nurse Name: Merline Elliott RN Position: S RN Member Role: Primary Care Nurse Name: Sarwat Villafana RN Position: [facility] RN Member Role: Primary Care Nurse Name: Mary Ferrara RN Position: S RN Member Role: Primary Care Nurse Name: Pebbles Mendes RN Position: [facility] RN Member Role: Primary Care Nurse Name: Kassie Jo RN Position: [facility] RN Member Role: Primary Care Nurse Name: Destinee Bonilla RN Position: [facility] RN Member Role: Primary Care Nurse Name: Davey Conde MD Position: Reference Physician Member Role: PCP Address: [address] [place] [id number] Telecom: Name: Melvina Jorge RN Position: [facility] RN Member Role: Primary Care Nurse Name: Di Correa RN Position: [facility] AMB Nurse Member Role: Primary Care Nurse Name: Carlos Jordan MD Position: [facility] Renal MD Member Role: Lifetime Consulting Physician Address: [address] [facility] [place] [address] [employer] Tele[employer]: Name: Berlin Shin MD Position: [facility] Renal MD Member Role: Lifetime Consulting Physician Address: [address] [facility] [place] [address]- Telecom: Name: Evan Dallas RN Position: [facility] RN Member Role: Primary Care Nurse Care Team Related Persons Name: МАРИЯ MACK Name: JULIO C MACK Insurance Providers Guarantor name: CARISA MACK Health Plan Information #: 2 Payer: [employer] Member Number: [id number] Policy Number: NA Group Number: NA Health Plan Information #: 4 Payer: [employer] Member Number: [id number] Policy Number: NA Group Number: NA Health Plan Information #: 3 Payer: MEDICARE PART B OUTPT Member Number: [id number] Policy Number: NA Group Number: NA Health Plan Information #: 1 Payer: [facility] Member Number: [id number] Policy Number: NA Group Number: NA
--- OUTSIDE RECORDS SUMMARY | 2024-04-06 14:48 | XMS_ITS ---
Author Organization [facility] Address [address] [place] [address] Care Team Providers Care Aboriginal Community Council Member Name Role Phone Davey Conde MD Primary Care Provider Unavailab Radhames Fischer Unavailable [phone] REASON FOR VISIT cx appt 04/06/24 Encounters Encounter Location Date Provider Diagnosis [address] [address] 04/05/2024 Radhames Borja Plan Of Treatment No Information Progress Notes * Queenie KRISHNA RDOB: [birth year] (63 yo F)Acc No.[id number]:04/05/2024 Patient:?Queenie KRISHAN :1960???Age:63 Y???Sex:Female Address:[address] [place] [id number] * true * Date:? Generated for Printi beatriz/Emmanuel/eTransmitting on:?04/06/2024 02:47 PM EST
--- OUTSIDE RECORDS SUMMARY | 2024-04-06 14:48 | XMS_ITS ---
Author Organization [facility] [place] Address [address] [address] Care Team Providers Care Faculty Head Name Role Phone Davey Conde MD Primary Care Provider Unavailab Radhames Fischer Unavailable [phone] Allergies No Known Allergies Medications Medication SIG (Take, Route, Frequency, Duration) Notes Start Date End Date Status Furosemide 40 MG Oral for 30 Days Unknown Vitamin D (Ergocalciferol) 1.25 MG (37853 UT) Oral for 84 Days Unkno wn Tresiba FlexTouch 200 UNIT/ML ADMINISTER 125 UNITS UNDER THE SKIN DAILY IN THE MORNING Subcutaneous for 42 Days Unknown Albuterol Sulfate HFA 108 (90 Base) MCG/ACT Inhalation for 16 Days Unknown Benzonatate 100 MG TAKE 1 CAPSULE BY MO UTH THREE TIMES DAILY NEEDED FOR COUGH Oral for 6 Days Unknown Omeprazole 20 MG TAKE 1 CAPSULE BY MO UT EVERY DAY Oral for 90 Days Unknown Combivent Respimat 20-100 MCG/ACT INHALE 1 PUFF BY MOUTH FOUR TIMES DAILY. MAY TAKE ADDITIONAL PUFFS NEEDED. NOT TO EXCEED 6 PUFFS IN 24 HOURS Inhalation for 30 Days Unknown Ozempic (2 MG/DOSE) 8 MG/3ML Subcutaneous for 28 Days Unk nown predniSONE 5 MG Oral for 90 Days Unknown Carvedilol 25 MG Oral for 90 Days Unknown Pvalisyyyr-NDKK-Fzshqjuk 50-325-40 MG TAKE 1 TABLET BY MOUTH EVERY 4 HOURS. NO MORE THAN 3 TIMES A WEEK Oral for 5 Days Unknown Cyclobenzaprine HCl 10 MG Oral for 30 Days Unknown NovoLOG FlexPen 100 UNIT/ML Subcutaneous for 24 Days Unknown HYDROcodone-Acetaminophen 5-325 MG TAKE 1 TABLET BY MOUTH TWICE DAILY Oral for 7 Days Unknown Levothyroxine Sodium 50 MCG Oral for 90 Days Unknown hydrALAZINE HCl 50 MG Oral for 90 Days Unknown Combivent Respimat 20-100 MCG/ACT Inhalation for 30 Days Unkno wn Metoprolol Tartrate 100 MG Oral for 10 Days Unknown Simvastatin 20 MG Oral for 90 Days Unknown Doxazosin Mesylate 4 MG Oral for 85 Days Unknown metFORMIN HCl 1000 MG Oral for 90 Days Unknown Nortriptyline HCl 25 MG TAKE 1 CAPSULE B Y MOUTH DAILY Oral for 90 Days Unknown Cyclobenzaprine HCl 10 MG TAKE 1 TABLET BY MOUTH THREE TIMES DAILY NEEDED Oral for 30 Days Unknown hydrALAZINE HCl 50 MG TAKE 1 TABLET BY M OUT TWICE DAILY Oral for 90 Days Unknown Social History Tobacco Use: [...] Negative Encounters Encounter Location Date Provider Diagnosis [facility] [address] [address] 04/06/2024 Radhames Borja Plan Of Treatment No Information Progress Notes * Queenie KRISHNA RDOB: [birth year] (63 yo F)Acc No.[id number]:04/06/2024 Progress Notes Patient:?Queenie KRISHNA Provider:?Radhames Borja DPM :1960???Age:63 Y???Sex:Female D ate:04/06/2024 Address:[address] [place], [place] [id number] Pcp:Davey Conde MD Subjective: * Chief Complaints: * ??? * ROS:?General/Constitutional:?Nausea?denies.?Vomiting?denies.?Hunger Thirst?denies.?Loss appetite?denies.?Chills?denies.?Fatigue?denies.?Fever?denies.?Night Sweats?denies.?Unexplained weight loss?denies.?Unexplained weight gain?denies.?HEENTM:?Dentures?denies.?Dizziness?denies.?Glasses/contacts?admits.?Retinopathy?de nies.?Blurred/double vision?denies.?TMJ?denies.?Discharge/drainage?denies.?Implants?denies.?Sore throat?denies.?Dental implants?denies.?Hard of hearing ?denies.?Difficulty chewing/swallowing/speaking?denies.?Nose bleeds?denies.?Sore mouth?denies.?Respiratory:?On Oxygen?denies.?Pneumonia/pleurisy?denies.?Bronchitis?denies.?Emphysema?denies.?C oughing?denies.?Cough blood?denies.?Shortness of breath?admits.?Wheezing?admits.?Cardiovascular:?Pacemaker?denies.?MVP?denies.?WPW?denies.?CHF?denies.?Heart attack?denies.?Septal defect?denies.?Rapid beat?denies.?Chest pain ?denies.?Atrial Fib.?denies.?Murmur/Palpitations?denies.?Gastrointestinal:?Hemorrhoids?denies.?Stomach/Abdominal pain?denies.?Dark blood stool?denies.?Irritable bowel ?denies.?Constipation?denies.?Diarrhea?denies.?Hematology:?Swelling?denies.?Clots?denies.?Varicose Veins?denies.?Bruising?denies.?Bleeding problem?denies.?Genitourinary:?Blood urine?denies.?Frequent/Painfu/urination/bladder control?denies.?Kidney stones?denies.?Infection (UTI)?denies.?Nephropathy?denies.?sex trans dis (STD)?denies.?Prostate?denies.?Musculoskeletal:?Hammertoes?denies.?Bunions?denies.?Back Pain?denies.?Muscle Cramps/ Resting?denies.?Muscle cramps / walking?denies.?Generalized aches and pains?denies.?Weakness?denies.?Integ.:?Grant?denies.?Scars?denies.?Corns/calluses?denies.?Ingrown nails?denies.?Painful nails?denies.?Open Sores?denies.?Rashes?denies.?Neurologic:?Difficulty sleeping?denies.?Brain disorder?denies.?Numbness?denies.?Balance trouble?denies.?Confusion?denies.?Fainting/blackouts?denies.?Tingling?denies.?Tr emors?denies.? * Medical History:?Arthritis, Back,Hip,and Knee pain, Diabetic, Headaches/Migraines, Kidney disease, Numbness, Chicken pox, Lupus. * Family History:?Mother: dece ased.?Father: .? * Social History:?Tobacco Use:?Tobacco use other than smoking?Are you an other tobacco user??No ?Tobacco Control (Standard)?Tobacco use:?Nonsmoker ?Additional Findings: Tobacco non-user?Current nonsmoker ???Drugs/Alcohol:?Drugs?Have you used drugs other than those for medical reasons in the past 12 months??No ???Miscellaneous:?Caffeine: yes. ?Children: yes. ?Marital status: . 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 ???Drug/Alcohol:?AUDIT-C (Standard)?Did you have a drink containing alcohol in the past year??Yes ?How often did you have six or more drinks on one occasion in the past year??Declined to specify (0 point) ?How many drinks did you have on a typical day when you were drinking in the past year??Declined to specify (0 point) ?How often did you have a drink containing alcohol in the past year??Monthly or less (1 point) ?Points?1 ?Interpretation?Negative * Medications:?Unknown Doxazos in Mesylate 4 MG Tablet Oral , Unknown Combivent Respimat 20-100 MCG/ACT Aerosol Solution Inhalation , Unknown Yuhuicjnkd-JKHO-Aymttcwj 50-325-40 MG Tablet TAKE 1 TABLET BY MOUTH EVERY 4 HOURS. NO MORE THAN 3 TIMES A WEEK Oral , Unknown Cyclobenzaprine HCl 10 MG Tablet Oral , Unknown HYDROcodone-Acetaminophen 5-325 MG Tablet TAKE 1 TABLET BY MOUTH TWICE DAILY Oral , Unknown Levothyroxine Sodium 50 MCG Tablet Oral , Unknown NovoLOG FlexPen 100 UNIT/ML Solution Pen-injector Subcutaneous , Unknown Carvedilol 25 MG Tablet [...] , Unknown Tresiba FlexTouch 200 UNIT/ML Solution Pen-injector ADMINISTER 125 UNITS UNDER THE SKIN DAILY IN THE MORNING Subcutaneous , Unknown Furosemide 40 MG Tablet Oral , Unknown Vitamin D (Ergocalciferol) 1.25 MG (77583 UT) Capsule Oral , Unknown Albuterol Sulfate [...] Metoprolol Tartrate 100 MG Tablet Oral * Allergies:?N.K.D.A. Objective: * Vitals:? Assessment: Plan: * Treatment: * Images: * The named appointment provid er may or may not be the originator of this progress note, and it is not deemed complete until electronically signed by the appointment provider. Sign off status: Pending * Provider:?Radhames Borja DPM Date:?2023 Generated for Veronica henderson/Emmanuel/Néstor on:?04/06/2024 02:47 PM EST
== END 2024-04-04 10:43 | disposition home or self-care (01) ==
LOC: HO.HMGCLDS 10:42
PROVIDERS: PCP Internal Medicine; Visit Provider Internal Medicine
DX: N18.9 Chronic kidney disease, unspecified (principal)
CPT/HCPCS: 36415; 82565; 84520

== ENCOUNTER 2024-04-11 10:07 | Outpatient (REF) | payer OTHER, MEDICAID, SELFPAY ==
--- OUTSIDE RECORDS SUMMARY | 2024-04-11 10:11 | XMS_ITS ---
Author Organization [facility] Address [address] [place] [address] Care Team Providers Care Bottomer Operator Name Role Phone Davey Conde MD Primary Care Provider Unavailab Radhames Fischer Unavailable [phone] REASON FOR VISIT cx appt 04/06/24 Encounters Encounter Location Date Provider Diagnosis [address] [address] 04/05/2024 Radhames Borja Plan Of Treatment No Information Progress Notes * Queenie KRISHNA RDOB: [birth year] (63 yo F)Acc No.[id number]:04/05/2024 Patient:?Queenie KRISHNA :1960???Age:63 Y???Sex:Female Address:[address] [place] [address] * true * Date:? Generated for Printi ng/Emmanuel/eTransmitting on:?04/11/2024 10:10 AM EST
--- OUTSIDE RECORDS SUMMARY | 2024-04-11 10:11 | XMS_ITS | Patient Health Record ---
Author Organization [facility] [place] Address [address] [place] [address] Care Team Providers Care Electronics Technician Apprentice Name Role Phone Davey Conde MD Primary Care Provider Unavailab Radhames Fischer Unavailable [phone] Allergies No Known Allergies Reason For Referral No Information Medications Medication SIG (Take, Route, Frequency, Duration) Notes Start Date End Date Status Prcxsuuogy-SYGK-Pwxvyexz 50-325-40 MG TAKE 1 TABLET BY MOUTH EVERY 4 HOURS. NO MORE THAN 3 TIMES A WEEK Oral for 5 Days Unknown Furosemide 40 MG Oral for 30 Days Unknown Cyclobenzaprine HCl 10 MG Oral for 30 Days Unknown Vitamin D (Ergocalciferol) 1.25 MG (62424 UT) Oral for 84 Days Unkno wn [...] Negative Encounters Encounter Location Date Provider Diagnosis [facility] [address] [address] 04/05/2024 Radhames Borja Plan Of Treatment No Information Insurance Providers Payer Name Payer Address Payer Phone Subscriber Number Group Number Insured Name Patient Relationship to Insured Coverage Start Date Coverage End Date [employer] Ass[employer] Open [address] [address] [place] [address] [id number] Queenie Krishna Self - patient is the insured Medical (General) History Medical History History ICD Code Arthritis Back,Hip,and Knee pain Diabetic Headaches/Migraines Kidney disease Numbness Chicken pox Lupus
--- OUTSIDE RECORDS SUMMARY | 2024-04-11 10:11 | XMS_ITS ---
Author Organization [facility] [place] Address [address] [place] [address] Care Team Providers Care Levelman Name Role Phone Davey Conde MD Primary Care Provider Unavailab Radhames Fischer Unavailable [phone] Allergies No Known Allergies Medications Medication SIG (Take, Route, Frequency, Duration) Notes Start Date End Date Status Furosemide 40 MG Oral for 30 Days Unknown Vitamin D (Ergocalciferol) 1.25 MG (47954 UT) Oral for 84 Days Unkno wn [...] 25 MG Oral for 90 Days Unknown Ahwkvewhnv-CUNJ-Nwrmaiyb 50-325-40 MG TAKE 1 TABLET BY MOUTH [...] Negative Encounters Encounter Location Date Provider Diagnosis [facility] [address] [address] 04/06/2024 Radhames Borja Plan Of Treatment No Information Progress Notes * Queenie KRISHNA RDOB: [birth year] (63 yo F)Acc No.[id number]:04/06/2024 Progress Notes Patient:?Queenie KRISHNA Provider:?Radhames Borja DPM :1960???Age:63 Y???Sex:Female D ate:04/06/2024 Address:[address] [place], [place] [id number] Pcp:Davey Conde MD Subjective: * Chief Complaints: [...] yes. ?Children: yes. ?Marital status: . 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 ???Drug/Alcohol:?AUDIT-C (Standard)?Did you have a drink containing [...] 20-100 MCG/ACT Aerosol Solution Inhalation , Unknown Ktjkbjjals-XMQU-Xeyjsjlg 50-325-40 MG Tablet TAKE 1 TABLET BY [...] , Unknown Vitamin D (Ergocalciferol) 1.25 MG (30197 UT) Capsule Oral , Unknown Albuterol Sulfate [...] Borja DPM Date:?2023 Generated for Veronica henderson/Emmanuel/Néstor on:?04/11/2024 10:10 AM EST
== END 2024-04-11 10:08 | disposition home or self-care (01) ==
LOC: HO.CT 10:07
PROVIDERS: PCP Internal Medicine; Visit Provider Internal Medicine
DX: R59.0 Localized enlarged lymph nodes (principal); R06.02 Shortness of breath
CPT/HCPCS: 71250

== ENCOUNTER → 2024-04-11 10:15 | Outpatient (BNV) | payer OTHER, MEDICAID, SELFPAY | PROVIDERS: PCP Internal Medicine; Visit Provider Radiology Diagnostic Radiology | DX: N28.1 Cyst of kidney, acquired (principal); N26.1 Atrophy of kidney (terminal) | CPT/HCPCS: 71250 ==

== ENCOUNTER 2024-10-05 08:49 | Outpatient (REF) | payer MEDICARE, SELFPAY ==
--- OUTSIDE RECORDS SUMMARY | 2024-10-05 09:11 | XMS_ITS | Patient Health Record ---
Author Organization [facility] Address [address] [place] [address] Care Team Providers Care Emulsion Operator Name Role Phone Davey Conde MD Primary Care Provider Unavailab Radhames Fischer Unavailable [phone] Allergies No Known Allergies Reason For Referral No Information Medications Medication SIG (Take, Route, Frequency, Duration) Notes Start Date End Date Status Hsoawktega-EMBG-Amujewpx 50-325-40 MG TAKE 1 TABLET BY MOUTH EVERY 4 HOURS. NO MORE THAN 3 TIMES A WEEK Oral for 5 Days Unknown Furosemide 40 MG Oral for 30 Days Unknown Cyclobenzaprine HCl 10 MG Oral for 30 Days Unknown Vitamin D (Ergocalciferol) 1.25 MG (40125 UT) Oral for 84 Days Unkno wn [...] Negative Encounters Encounter Location Date Provider Diagnosis [facility] [address] [address] 04/05/2024 Radhames Borja Plan Of Treatment No Information Insurance Providers Payer Name Payer Address Payer Phone Subscriber Number Group Number Insured Name Patient Relationship to Insured Coverage Start Date Coverage End Date [employer] Ass[employer] Open [address] [address] [place] [address] [phone] [id number] Queenie Krishna Self - patient is the insured Medical (General) History Medical History History ICD Code Arthritis Back,Hip,and Knee pain Diabetic Headaches/Migraines Kidney disease Numbness Chicken pox Lupus
[2024-10-05 10:32] LABS: MANUAL DIFF FLAG NO
[2024-10-05 10:43] LABS: Basophils Percent Auto 0.3 % (0-2); Eosinophils Absolute Auto 0.2 X10*3/uL (0.0-0.4); Eosinophils Percent Auto 1.4 % (0-4); Hematocrit 32.9 % (37.0-47.0); Hemoglobin 10.5 g/dl (12.0-16.0); Imm Gran Abs Auto 0.05 X10*3/uL (0.00-0.03); Imm Gran Pct Auto 0.4 % (0.0-0.4); Lymphocytes Absolute Auto 1.9 X10*3/uL (1.2-4.9); Lymphocytes Percent Auto 16.5 % (20-40); Mean Corpuscular HGB Conc 31.9 g/dl (31.0-35.0); Mean Corpuscular Hemoglobin 28.8 pg (27.0-33.0); Mean Corpuscular Volume 90.4 fL (80.0-98.0); Mean Platelet Volume 10.8 fL (9.4-12.3); Monocytes Absolute Auto 0.8 X10*3/uL (0.1-1.2); Monocytes Percent Auto 7.4 % (2-11); Neutrophils Absolute Auto 8.4 x10*3/uL (2.0-8.3); Platelet Count 171 X10*3/uL (160-400); Red Blood Count 3.64 X10*6/uL (4.20-5.50); Red Cell Distribution Width 13.4 % (11.0-16.0); White Blood Count 11.3 X10*3/uL (4.8-10.8)
[2024-10-05 10:51] LABS: Alanine Aminotransferase 30 U/L (0-31); Albumin Level 3.5 g/dL (3.5-5.0); Alkaline Phosphatase 88 U/L (39-117); Anion Gap 10 (12-20); Aspartate Amino Transferase 31 U/L (5-31); Bilirubin Total 0.3 mg/dL (0.0-1.0); Blood Urea Nitrogen 49 mg/dL (9-16); Calcium 8.5 mg/dL (8.4-10.2); Carbon Dioxide 27 mmol/L (22-29); Chloride 109 mmol/L (96-108); Cholesterol 137 mg/dL (<200); Estimated Glomerular Filt Rate 17; Glucose Fasting 123 mg/dL (60-99); HDL Cholesterol 37 mg/dL (>40); LDL Cholesterol Calculated 67 mg/dL (<100); Potassium 3.4 mmol/L (3.3-5.1); Sodium 143 mmol/L (135-145); Triglycerides 165 mg/dL (<150)
[2024-10-05 10:52] LABS: Estimated Average Glucose 148 mg/dL; Hemoglobin A1c % 6.8 % (<6.0)
[2024-10-06 13:15] LABS: Thyroid Stimulating Hormone 4.38 uIU/mL (0.32-4.0)
== END 2024-10-05 08:50 | disposition home or self-care (01) ==
LOC: HO.HMGCLDS 08:49
PROVIDERS: PCP Internal Medicine; Visit Provider Internal Medicine
DX: Z00.00 Encounter for general adult medical examination without abnormal findings (principal); E11.22 Type 2 diabetes mellitus with diabetic chronic kidney disease; Z79.4 Long term (current) use of insulin; E78.5 Hyperlipidemia, unspecified; R53.83 Other fatigue; N18.9 Chronic kidney disease, unspecified; E03.9 Hypothyroidism, unspecified
CPT/HCPCS: 36415; 80053; 80061; 83036; 84439; 84443; 85025

== ENCOUNTER 2024-10-29 15:47 | Emergency (ER) | payer MEDICARE, SELFPAY ==
--- NOTE | ~2024-10-29 | CT_ITS ---
CLINICAL HISTORY: R flank pain CT abdomen and pelvis without contrast Comparison: US/SR - US ABDOMEN LIMITED - 08/17/22 19:14 EDT Findings: No consolidation or effusion. Hepatic steatosis. Gallbladder, pancreas, spleen, and adrenal glands are within normal limits. Atrophic [place] kidneys. Right lower quadrant transplant kidney. No hydronephrosis or urolithiasis. Few small hemorrhagic /proteinaceous cysts. No bowel obstruction, pneumoperitoneum, or pneumatosis. Aortic atherosclerosis. No aneurysm. Pelvic organs unremarkable. Normal appendix. No acute fracture. Degenerative changes of the spine. IMPRESSION: 1. No acute intraabdominal or pelvic pathology. 2. Right renal transplant with small hemorrhagic/proteinaceous cysts. This document has been electronically signed by: Niesha Shea MD on 10/29/2024 19:31:58
[2024-10-29 15:52] VITALS: BP 178/83; PULSE 80; RESP 18; TEMP 36.7; O2SAT 96; BMI 52.1
--- NOTE | 2024-10-29 15:52 | ED.GENADULT ---
HPI - General Adult General Chief complaint: Abdominal Pain Stated complaint: lower abd pain radiating to back Time Seen by Provider: 10/29/24 16:54 Source: patient, RN notes reviewed and old records reviewed Mode of arrival: ambulatory Limitations: no limitations History of Present Illness ED Provider: Ernestina HPI narrative: Patient is a 64-year-old female with reported history of renal transplant at [facility] September of 1999, follows with Dr. Shin, T2DM, HTN, HLD, obesity, hypothyroidism, lupus presenting with several weeks of right flank pain which had initially improved, then worsened again over the past few days. Denies fevers, nausea, vomiting, diarrhea. Denies dysuria, hematuria, frequency or other urinary symptoms. Last normal bowel movement was this morning. MD complaint: right flank pain Onset (ago): week(s) Related Data Home Medications ?Medication ?Instructions ?Recorded ?Confirmed insulin syringe-needle U-100 1 mL #10 ea 02/21/20 09/20/21 30 gauge x 1/2 levothyroxine 50 mcg tablet 50 mcg PO DAILY@0600 02/21/20 10/24/23 nortriptyline 25 mg capsule 25 mg PO DAILY PRN Back Pain 02/21/20 10/24/23 prednisone 5 mg tablet 5 mg PO DAILY 02/21/20 10/24/23 simvastatin 20 mg tablet 20 mg PO DAILY 02/21/20 10/24/23 acetaminophen 500 mg tablet 1,000 mg PO Q6H PRN Pain 10/24/23 10/24/23 cyclobenzaprine 10 mg tablet 10 mg PO TID PRN Muscle Spasm 10/24/23 10/24/23 doxazosin 4 mg tablet 4 mg PO BEDTIME 10/24/23 10/24/23 glipizide 2.5 mg tablet, extended 2.5 mg PO DAILY 10/24/23 10/24/23 release 24 hr insulin aspart U-100 100 unit/mL 1 sliding scale dose subcut TIDAC 10/24/23 10/24/23 subcutaneous solution (Novolog U-100 Insulin aspart) insulin degludec 200 unit/mL (3 130 unit subcut DAILY diabetes 10/24/23 10/24/23 mL) subcutaneous pen (Tresiba FlexTouch U-200 insulin) metoprolol tartrate 100 mg tablet 100 mg PO BID 10/24/23 10/24/23 mycophenolate mofetil 500 mg tablet 1,500 mg PO BID 10/24/23 10/24/23 omeprazole 20 mg capsule,delayed 20 mg PO DAILY@0630 10/24/23 10/24/23 release semaglutide 0.25 mg or 0.5 mg (2 0.25 mg subcut QWEEK 12/23/23 mg/3 mL) subcutaneous pen injector (Ozempic) Previous Rx's ?Medication ?Instructions ?Recorded flash glucose scanning reader #1 ea 02/25/21 (FreeStyle Neetu 2 [place]) flash glucose sensor (FreeStyle #2 ea 02/25/21 Neetu 2 Sensor kit) albuterol sulfate 90 mcg/actuation 2 puff inhalation Q4-6H PRN 01/24/24 aerosol inhaler shortness of breath or wheezing #6.7 grams benzonatate 100 mg capsule 100 mg PO TID PRN cough #20 caps 01/24/24 prednisone 20 mg tablet 40 mg (2 x 20 mg) PO DAILY #10 tabs 01/24/24 cefuroxime axetil 500 mg tablet 500 mg PO BID #20 tabs 10/29/24 tramadol 50 mg tablet 50 mg PO Q8H PRN pain #6 tabs 10/29/24 Allergies Allergy/AdvReac Type Severity Reaction Status Date / Time No Known Allergies Allergy Unknown Verified 10/29/24 15:53 Review of Systems Review of Systems: As per HPI Yes all other systems are reviewed and are negative Constitutional: Constitutional: Reports as per HPI [facility] Past Medical History Medical History (Updated 10/29/24 @ 20:05 by Chika Do NP) UTI (urinary tract infection) Diabetes type 2, uncontrolled Type 2 diabetes mellitus with retinopathy Obesity due to excess calories Type 2 diabetes mellitus with diabetic polyneuropathy Chronic kidney disease Retinopathy Subclinical hypothyroidism Gout Migraine headache Lupus Essential hypertension Hyperlipidemia LDL goal <100 BMI 50.0-59.9, adult Diabetes mellitus with hyperglycemia Surgical History Hx of colonoscopy Hx of adenoidectomy Hx of tonsillectomy Hx of appendectomy Hx of kidney transplant Family History Family History Father Colon cancer Kidney disease Mother Throat cancer COPD (chronic obstructive pulmonary disease) Alzheimer disease Paternal Grandfather Colon cancer Maternal Grandfather Lung cancer Social History Social History Household Members: Family Alcohol intake: current Alcohol intake frequency: a few times a week Patient Tobacco Use Status: Never used Tobacco Smoked in Last 30 Days: No Use of substances other than those prescribed or required for medical reasons: No Advance Directives: No Advance Directives Information Provided: Yes Patient : No Physical Exam ED Vital Signs: Vital Signs - 24 hr 10/29/24 15:52 10/29/24 17:17 10/29/24 18:04 Temperature 98.1 F 98.5 F Pulse Rate 80 79 74 Respiratory Rate 18 16 18 Blood Pressure 178/83 H 179/87 H 175/91 H Pulse Oximetry 96 96 96 Oxygen Delivery Method Room Air Room Air Room Air BMI result Body Mass Index 52.1 Vital signs have been reviewed and appear to be correct. Blood pressure elevated. Heart rate normal. Respiratory rate normal. Temperature normal. Oxygen saturation normal. Const General: cooperative, healthy appearing and no acute distress Nutritional Appearance: obese Orientation/consciousness: oriented to person, oriented to place, oriented to time and patient oriented x3 Limitations: no limitations HENMT Head: Yes normocephalic and Yes atraumatic Ears: external ears normal General nose exam: Normal external nose present Face and sinus: Yes face symmetric Mouth: oropharynx normal and moist mucous membranes Throat: Yes uvula midline Eyes Pupils: Equal, round and reactive pupils present Neck Neck: Yes normal visual inspection and Yes supple Resp Effort & Inspection: normal respiratory effort and able to speak in complete sentences Auscultation: clear to auscultation bilaterally Cardio Rate: regular rate Rhythm: regular rhythm Heart sounds: S1 normal heart sound present and S2 normal heart sound present GI Palpation (GI): Soft to palpation and nontender Auscultation: normoactive bowel sounds General: Yes no CVA tenderness Back/Spine/Pelvis Back: no CVA tenderness Skin General skin exam: elasticity normal and turgor normal Neuro General: oriented to person, oriented to place, oriented to time, patient oriented x3, moves all extremities, no focal motor deficits and CN's II-XI intact bilaterally Cranial nerves: Yes Equal, round and reactive pupils present Cognition (Neuro): normal cognition Extrem General: Yes full ROM, Yes no pedal edema and Yes no calf tenderness Psych Mental Status: mental status grossly normal Affect: normal affect Thought process: Normal thought process present Course Course Course Narrative: RME performed by Desiree Rodas PA-C. Patient is a 64 year old assigned female at presenting to the emergency department with right sided abdominal pain. Detailed physical exam and review of systems are deferred to the program support specialist. Labs ordered. Patient placed back in the waiting room pending room availability and results. Medications Administered Discontinued Medications Generic Name Dose Route Start Last Admin Trade Name Rhett PRN Reason Stop Dose Admin Ceftriaxone Sodium 1 gm 10/29/24 17:14 10/29/24 18:01 Ceftriaxone Sodium 1 Gm Vial IVPUSH 10/29/24 17:15 1 gm ONCE ONE Administration Diphenhydramine HCl 25 mg 10/29/24 18:08 10/29/24 18:13 Diphenhydramine Hcl 50 Mg/Ml Vial IVPUSH 10/29/24 18:09 25 mg ONCE ONE Administration Sodium Chloride 1,000 mls @ 999 mls/hr 10/29/24 17:15 10/29/24 18:01 Ns IV 10/29/24 18:15 999 mls/hr .Q1H1M DARI Administration Morphine Sulfate 4 mg 10/29/24 17:02 10/29/24 18:00 Morphine Sulfate 4 Mg/Ml Cartridge IVPUSH 10/29/24 17:03 4 mg ONCE ONE Administration Protocol Ondansetron HCl 4 mg 10/29/24 17:02 10/29/24 18:00 Ondansetron Hcl 4 Mg/2 Ml Vial IVPUSH 10/29/24 17:03 4 mg ONCE ONE Administration Medical Decision Making Medical Decision Making MDM Narrative: Patient is a 64-year-old female with reported history of renal transplant at [facility] September of 1999, follows with Dr. Shin, T2DM, HTN, HLD, obesity, hypothyroidism, lupus presenting with several weeks of right flank pain which had initially improved, then worsened again over the past few days. On exam patient is awake, A+Ox3, BP elevated but appears consistent with baseling, VS otherwise WNL, afebrile, normal neurological exam without focal deficits, physical exam findings as above. Given reported symptoms and physical exam findings, initial differential includes but is not limited to UTI/pyelonephritis, renal colic, ureteral calculi, hydronephrosis. Labs notable for left shift without leukocytosis, BUN/creatinine at baseline. CT notable for no evidence of hydronephrosis or urolithiasis. My interpretation is in agreement with the radiologist's interpretation. IV ceftriaxone given in the ED. Patient is afebrile, renal function at baseline, feel she is stable for discharge on PO antibiotics with strict return precautions. Patient is agreeable to this and would like to avoid admission. Instructed her to follow up with PCP and Dr. Shin. Return precautions discussed at bedside. Patient verbalized understanding of and agreement with plan. Differential Diagnosis Differential Diagnoses: The differential diagnosis associated with the presentation includes As per [facility] Admission/Observation Consideration of admission/observation: Escalation of care including admission/observation considered Patient would have been admitted to the hospital had their work up had any findings where hospital admission was appropriate and their clinical presentation warranted hospital admission. Lab Data [facility] Lab Attestation statement: I reviewed the patient's lab results. As per [facility] 10/29/24 16:01 10/29/24 16:01 Labs: Lab Results 10/29/24 10/29/24 Range/Units 16:01 16:15 WBC 10.1 (4.8-10.8) X10*3/uL RBC 3.46 L (4.20-5.50) X10*6/uL Hgb 10.1 L (12.0-16.0) g/dl Hct 30.5 L (37.0-47.0) % MCV 88.2 (80.0-98.0) fL MCH 29.2 (27.0-33.0) pg MCHC 33.1 (31.0-35.0) g/dl RDW 13.6 (11.0-16.0) % Plt Count 157 L (160-400) X10*3/uL MPV 9.7 (9.4-12.3) fL Immature Gran % (Auto) 0.8 H (0.0-0.4) % Neut % (Auto) 75.7 H (45-73) % Lymph % (Auto) 13.9 L (20-40) % [place]rill % (Auto) 6.7 (2-11) % Eos % (Auto) 2.5 (0-4) % Baso % (Auto) 0.4 (0-2) % Lymph # (Auto) 1.4 (1.2-4.9) X10*3/uL [place]rill # (Auto) 0.7 (0.1-1.2) X10*3/uL Eos # (Auto) 0.3 (0.0-0.4) X10*3/uL Baso # (Auto) 0.0 (0.0-0.2) X10*3/uL Abs Immat Gran (auto) 0.08 H (0.00-0.03) X10*3/uL Absolute Neuts (auto) 7.7 (2.0-8.3) x10*3/uL Absolute Nucleated RBC 0.000 (0.0-0.012) X10*3/uL Nucleated RBC % (auto) 0.0 (0.0-0.2) /100WBC Sodium 145 (135-145) mmol/L Potassium 4.2 D (3.3-5.1) mmol/L Chloride 111 H (96-108) mmol/L Carbon Dioxide 23 (22-29) mmol/L Anion Gap 15 (12-20) BUN 45 H (9-16) mg/dL Creatinine 2.84 H (0.5-1.4) mg/dL Estim Creat Clear Calc 26.1 Estimated GFR 17 Random Glucose 131 H (60-115) mg/dL Calcium 8.8 (8.4-10.2) mg/dL Magnesium 1.8 (1.6-2.6) mg/dL Total Bilirubin 0.3 (0.0-1.0) mg/dL AST 30 (5-31) U/L ALT 24 (0-31) U/L Alkaline Phosphatase 84 (39-117) U/L Total Protein 6.0 L (6.5-8.0) g/dL Albumin 3.5 (3.5-5.0) g/dL Urine Color Yellow Urine Appearance Clear Urine pH 5.5 (5.0-9.0) Ur Specific [place] 1.010 (1.005-1.025) Urine Protein 300 (3+) H (Neg-Trace) mg/dL Urine Glucose (UA) Negative (Negative) mg/dL Urine Ketones Negative (Negative) mg/dL Urine Blood Trace H (Negative) Urine Nitrite Negative (Negative) Ur Leukocyte Esterase Small (1+) H (Negative) Urine RBC 0-2 (0-2) /HPF Urine WBC >50 H (0-5) /HPF Ur Squamous Epith Cells 3-5 (0-2) /HPF Urine Bacteria None Seen (None Seen) Hyaline Casts 0-2 (0-2) /LPF Independent Interpretation I performed an independent interpretation of an: CT Scan Interpretation: No evidence of urolithiasis or hydronephrosis on CT A/P. Radiology Impression Discussion of test interpretation with radiology: I have reviewed the radiologist's reading. Radiologist Impression: CT abdomen and pelvis without contrast Comparison: US/SR - US ABDOMEN LIMITED - 08/17/22 19:14 EDT Findings: No consolidation or effusion. Hepatic steatosis. Gallbladder, pancreas, spleen, and adrenal glands are within normal limits. Atrophic grindstone kidneys. Right lower quadrant transplant kidney. No hydronephrosis or urolithiasis. Few small hemorrhagic /proteinaceous cysts. No bowel obstruction, pneumoperitoneum, or pneumatosis. Aortic atherosclerosis. No aneurysm. Pelvic organs unremarkable. Normal appendix. No acute fracture. Degenerative changes of the spine. IMPRESSION: 1. No acute intraabdominal or pelvic pathology. 2. Right renal transplant with small hemorrhagic/proteinaceous cysts. External Record Review External record reviewed: Inpatient record, Office record and Outpatient record Prescription Management I considered prescription management with: Pain Medication and Antibiotic Discharge Plan Discharge Clinical Impression: Pyelonephritis Patient Disposition: Home, Self-Care Instructions: Kidney Infection (ED) Additional Instructions: You have been evaluated in the emergency department today for right flank pain. Your evaluation, including urinalysis, suggests that your symptoms are due to a urinary tract infection which has ascended to your kidney. Please take your prescribed antibiotics for the full course of medication as directed. Please follow-up with your primary care provider and community service organization director within 2 days. Return to the emergency department if you experience fevers 100.4? F or greater, worsening or uncontrolled pain, vomiting, flank pain, or for any other concerning symptoms. Prescriptions: New cefuroxime axetil 500 mg tablet 500 mg PO BID Qty: 20 0RF tramadol 50 mg tablet 50 mg PO Q8H PRN (Reason: pain) Qty: 6 0RF No Action prednisone 20 mg tablet 40 mg PO DAILY Qty: 10 0RF benzonatate 100 mg capsule 100 mg PO TID PRN (Reason: cough) Qty: 20 0RF albuterol sulfate 90 mcg/actuation HFA aerosol inhaler 2 puff inhalation Q4-6H PRN (Reason: shortness of breath or wheezing) Qty: 6.7 0RF cyclobenzaprine 10 mg tablet 10 mg PO TID PRN (Reason: Muscle Spasm) metoprolol tartrate 100 mg tablet 100 mg PO BID glipizide 2.5 mg tablet extended release 24hr 2.5 mg PO DAILY omeprazole 20 mg capsule,delayed release(DR/EC) 20 mg PO DAILY@0630 doxazosin 4 mg tablet 4 mg PO BEDTIME insulin degludec [Tresiba FlexTouch U-200] 200 unit/mL (3 mL) insulin pen 130 unit subcut DAILY mycophenolate mofetil 500 mg tablet 1,500 mg PO BID insulin aspart U-100 [Novolog U-100 Insulin aspart] 100 unit/mL solution 1 sliding scale dose subcut TIDAC acetaminophen 500 mg Tablet 1,000 mg PO Q6H PRN (Reason: Pain) (DME) insulin syringe-needle U-100 1 mL 30 gauge x 1/2 syringe See Rx Instructions .ROUTE .MEDSUPPLY Qty: 10 Rx Instructions: As directed prednisone 5 mg tablet 5 mg PO DAILY simvastatin 20 mg tablet 20 mg PO DAILY levothyroxine 50 mcg tablet 50 mcg PO DAILY@0600 nortriptyline 25 mg capsule 25 mg PO DAILY PRN (Reason: Back Pain) (DME) FreeStyle Neetu 2 Sensor Kit See Rx Instructions .ROUTE .MEDSUPPLY Qty: 2 11RF Rx Instructions: As directed every 2 weeks (DME) FreeStyle Neetu 2 [place] Misc See Rx Instructions .ROUTE .MEDSUPPLY Qty: 1 0RF Rx Instructions: As directed Ozempic 0.25 mg or 0.5 mg (2 mg/3 mL) pen injector 0.25 mg subcut QWEEK Rx Instructions: for 4 weeks Print Language: Mohawk
--- OUTSIDE RECORDS SUMMARY | 2024-10-29 16:16 | XMS_ITS ---
Author Name [facility] Unknown Problems Problem Status Onset Date Problem Type Date of Resolution Source Lupus anticoagulant disorder (HCC) active EncounterDiagnosisAct CC T Encounters Encounter Type Encounter Reason Primary Diagnosis Location Date Ambulatory Lupus anticoagulant syndrome Lupus anticoagulant syndrome [facility] 02/09/2024 Ambulatory Lupus anticoagulant syndrome Lupus anticoagulant syndrome [facility] 11/26/2023 Ambulatory Unspecified complication of kidney transplant Unspecified complication of kidney transplant [facility] 04/03/2023 Ambulatory Unspecified complication of kidney transplant BCNX 03/18/2022 Ambulatory Kidney transplan t status BCNX 01/14/2022 Care Team Organization Name Specialty Phone Email Start Date End Da te BCNX PCP,No Primary Care 03/18/2022 07/13/2024 BCNX NO PCP Primary Care 01/07/2022 03/11/2022
--- OUTSIDE RECORDS SUMMARY | 2024-10-29 16:16 | XMS_ITS | Encounter Summary ---
Author Organization [facility] Address [address] [place] [address] Phone Care Team Providers Care Director Of Officiating Name Role Phone Davey Conde MD Primary Care Provider [phone] Reason for Referral * Outpatient Services (Routine) - Closed Specialty Diagnoses / Procedures Referred By Contyaneth t Referred To Contact Diagnoses Kidney transplant status Kidney replaced by transplant Procedures Generic Infusion Orders Berlin Shin MD Phone: tel: fax: Referral ID Status Reason Start Date Expiration Date Visits Re quested Visits Authorized [id number] Closed 11/10/2023 11/09/2024 1 1 Encounter Details Date Type Department Care Team (Latest Contact Info) Description 11/10/2023 Office Communication [facility] [address] [place] [address] [place] Shin MD [address] [facility] [address] [place] [address] Kidney transplant status (Primary Dx); Kidney replaced by transplant Social History Tobacco Use Types Packs/Day Years Used Date Smoking Tobacco: Never Smokeless Tobacco: Never Alcohol Use Standard Drinks/Week Comments Not Asked 0 (1 standard drink = 0.6 oz pure alcohol) Alcoholic Drinks/day: Occasional social drink Education Answer Date Recorded What is the highest level of school you have completed or the highest degree you have received? 12th grade 07/04/2020 Comments No Sex and Gender Information Value Date Recorded Sex Assigned at Not on file Legal Sex Female 5:03 PM EST Gender Identity Not on file Sexual Orientation Not on file documented as of this encounter Plan of Treatment Upcoming Encounters Date Type Department Care Team (Late st Contact Info) Description 01/11/2025 10:15 AM EDT Office Visit [facility] [address].. [address] [phone] Berlin Shin MD [address] [phone] documented as of this encounter Visit Diagnoses Diagnosis Kidney transplant status- Primary Kidney replaced by transplant documented in this encounter Care Teams Director Of Officiating Relationship Specialty Start Date End Date Davey Conde MD [address] [place] [address] PCP - General 05/07/20 documented as of this encounter
--- OUTSIDE RECORDS SUMMARY | 2024-10-29 16:16 | XMS_ITS | Clinical Summary ---
Author Organization [facility] Address [address] [place] [address] Care Team Providers Care Adjunct Faculty For Medical Terminology Name Role Phone Pcp, No Primary Care Provider Davey Jacobs MD Unavailable [phone] Social History Tobacco Use Types Packs/Day Years Used Date Smoking Tobacco: Never Assessed Comments Unknown Sex and Gender Information Value Date Recorded Sex Assigned at Female 11/24/2023 4:28 PM EDT Legal Sex Female 6:46 PM EST Gender Identity Female 11/24/2023 4:28 PM EDT Sexual Orientation Heterosexual (straight) 11/23 4:28 PM EDT Plan of Treatment Health Maintenance Due Date Last Done Comments Hepatitis C Virus Screening 1961 HIV Screening 1974 DTaP/Tdap/Td Vaccines (1 - Tdap) 1980 Pap Smear (Ages 21-65) 1982 Mammogram 2001 Colonoscopy 2006 Pneumococcal Vaccines 50+ (1 of 1 - PCV) 10/04/2011 Zoster (Shingles) Vaccine (1 of 2) 10/04/2011 RSV Vaccine 60 years and older and Patients (1 - Risk 60-74 years 1-dose series) 2021 COVID-19 Vaccine (2 - 2023-2 5 season) 2023 01/10/2021 Influenza Vaccine 11/25/2024 01/31/2024, 01/25/2018, 12/03/2016 Hepatitis B Vaccines Aged Out No long er eligible based on patient's age to complete this topic Insurance [facility] Care Teams Adjunct Faculty For Medical Terminology Relationship Specialty Start Date End Date Pcp, No [address] [place] [address] PCP - General 12/12/19 Davey Conde MD [address] [place] [address] Referring Provider Internal Medicine 09/26/23
--- OUTSIDE RECORDS SUMMARY | 2024-10-29 16:16 | XMS_ITS | Patient Health Record ---
Author Organization [facility] [place] Address [address] [place] [address] Care Team Providers Care Dealership Manager Name Role Phone Davey Conde MD Primary Care Provider Unavailab Radhames Fischer Unavailable [phone] Allergies No Known Allergies Reason For Referral No Information Medications Medication SIG (Take, Route, Frequency, Duration) Notes Start Date End Date Status [id number] 50-325-40 MG TAKE 1 TABLET BY MOUTH EVERY 4 HOURS. NO MORE THAN 3 TIMES A WEEK Oral; Duration: 5 Days Unknown Furosemide 40 MG Oral; Duration: 30 Days Unknown Cyclobenzaprine HCl 10 MG Oral; Duration: 30 Days Unknown Vitamin D (Ergocalciferol) 1.25 MG (63022 UT) Oral; Duration: 84 Days Unknown Omeprazole 20 MG TAKE 1 CAPSULE BY MO UTH EVERY DAY Oral; Duration: 90 Days Unknown hydrALAZINE HCl 50 MG Oral; Duration: 90 Days Unknown Combivent Respimat 20-100 MCG/ACT Inhalation; Duration: 30 Days Unknown Tresiba FlexTouch 200 UNIT/ML ADMINISTER 125 UNITS UNDER THE SKIN DAILY IN THE MORNING Subcutaneous; Duration: 42 Days Unknown Metoprolol Tartrate 100 MG Oral; Duration: 10 Days Unknown Simvastatin 20 MG Oral; Duration: 90 Days Unknown Combivent Respimat 20-100 MCG/ACT INHALE 1 PUFF BY MOUTH FOUR TIMES DAILY. MAY TAKE ADDITIONAL PUFFS NEEDED. NOT TO EXCEED 6 PUFFS IN 24 HOURS Inhalation; Duration: 30 Days Unknown Doxazosin Mesylate 4 MG Oral; Duration: 85 Days Unknown Ozempic (2 MG/DOSE) 8 MG/3ML Subcutaneou s; Duration: 28 Days Unknown metFORMIN HCl 1000 MG Oral; Duration: 90 Days Unknown predniSONE 5 MG Oral; Duration: 90 Days Unknown Nortriptyline HCl 25 MG TAKE 1 CAPSULE B Y MOUTH DAILY Oral; Duration: 90 Days Unknown NovoLOG FlexPen 100 UNIT/ML Subcutaneous ; Duration: 24 Days Unknown Cyclobenzaprine HCl 10 MG TAKE 1 TABLET BY MOUTH THREE TIMES DAILY NEEDED Oral; Duration: 30 Days Unknown Carvedilol 25 MG Oral; Duration: 90 Days Unknown hydrALAZINE HCl 50 MG TAKE 1 TABLET BY M OUTH TWICE DAILY Oral; Duration: 90 Days Unknown HYDROcodone-Acetaminophen 5-325 MG TAKE 1 TABLET BY MOUTH TWICE DAILY Oral; Duration: 7 Days Unknown Albuterol Sulfate HFA 108 (90 Base) MCG/ACT Inhalation; Duration: 16 Days Unknown Levothyroxine Sodium 50 MCG Oral; Duration: 90 Days Unknown Benzonatate 100 MG TAKE 1 CAPSULE BY MO UTH THREE TIMES DAILY NEEDED FOR COUGH Oral; Duration: 6 Days Unknown Social History Tobacco Use: [...] Negative Encounters Encounter Location Date Provider Diagnosis [facility] [address] [place] [address] 04/05/2024 Radhames Borja Plan Of Treatment No Information Insurance Providers Payer Name Payer Address Payer Phone Subscriber Number Group Number Insured Name Patient Relationship to Insured Coverage Start Date Coverage End Date [employer] Open [address] [address] [place] [address] [id number] Queenie Krishna Self - patient is the insured Medical (General) History Medical History History ICD Code Arthritis Back,Hip,and Knee pain Diabetic Headaches/Migraines Kidney disease Numbness Chicken pox Lupus
[2024-10-29 16:22] LABS: MANUAL DIFF FLAG NO
[2024-10-29 16:25] LABS: Appearance Urine Clear; Glucose Urine UA Negative (Negative); PH 5.5 (5.0-9.0); Specific Gravity - Urine 1.010 (1.005-1.025); UMIC TRIGGER UACC YES
[2024-10-29 16:29] LABS: Hematocrit 30.5 % (37.0-47.0); Hemoglobin 10.1 g/dl (12.0-16.0); Imm Gran Abs Auto 0.08 X10*3/uL (0.00-0.03); Imm Gran Pct Auto 0.8 % (0.0-0.4); Lymphocytes Absolute Auto 1.4 X10*3/uL (1.2-4.9); Mean Corpuscular HGB Conc 33.1 g/dl (31.0-35.0); Mean Corpuscular Hemoglobin 29.2 pg (27.0-33.0); Mean Corpuscular Volume 88.2 fL (80.0-98.0); NRBC Abs Auto 0.000 X10*3/uL (0.0-0.012); NRBC Pct Auto 0.0 /100WBC (0.0-0.2); Platelet Count 157 X10*3/uL (160-400); Red Blood Count 3.46 X10*6/uL (4.20-5.50); White Blood Count 10.1 X10*3/uL (4.8-10.8)
[2024-10-29 16:30] LABS: UACC Culture Trigger YES
[2024-10-29 16:39] LABS: Alanine Aminotransferase 24 U/L (0-31); Albumin Level 3.5 g/dL (3.5-5.0); Alkaline Phosphatase 84 U/L (39-117); Anion Gap 15 (12-20); Aspartate Amino Transferase 30 U/L (5-31); Blood Urea Nitrogen 45 mg/dL (9-16); Calcium 8.8 mg/dL (8.4-10.2); Carbon Dioxide 23 mmol/L (22-29); Chloride 111 mmol/L (96-108); Creatinine Clr Calc Pharmacy 26.1; Estimated Glomerular Filt Rate 17; Magnesium 1.8 mg/dL (1.6-2.6); Potassium 4.2 mmol/L (3.3-5.1); Sodium 145 mmol/L (135-145); Total Protein 6.0 g/dL (6.5-8.0)
[2024-10-29 17:17] VITALS: BP 179/87; PULSE 79; RESP 16; TEMP 36.9; O2SAT 96
[2024-10-29 18:04] VITALS: BP 175/91; PULSE 74; RESP 18; O2SAT 96
--- NOTE | 2024-10-29 18:16 | PC.NURSE ---
22gIV placed in the left hand - IVF/medication administered per provider order. pt verbalizing itching, numbness, and tingling to LUE when morphine was administered. red streaking noted to site. provider notified/aware. benadryl administered per provider order. effectiveness pending. pt going to CT at this time. plan of care ongoing. call ahrvey placed within reach.
--- NOTE | 2024-10-29 19:28 | PC.NURSE ---
this rn assumed care of pt, pt resting in stretcher, fluids remain administering at this time, pt offers no complaints.
[2024-10-29 20:18] VITALS: BP 175/91; PULSE 74; RESP 18; TEMP 36.6; O2SAT 96
== END 2024-10-29 20:19 | disposition home or self-care (01) ==
PROVIDERS: Physician Assistant Medical; Emergency Provider Internal Medicine
DX: N12 Tubulo-interstitial nephritis, not specified as acute or chronic (principal); E11.319 Type 2 diabetes mellitus with unspecified diabetic retinopathy without macular edema; I10 Essential (primary) hypertension; E78.5 Hyperlipidemia, unspecified; Z94.0 Kidney transplant status
CPT/HCPCS: 36415; 74176; 80053; 81001; 83735; 85025; 87086; 96374; 96375; 99284; 99285; J0696; J1200; J2270; J2405

== ENCOUNTER → 2024-10-29 17:02 | Outpatient (BNV) | payer MEDICARE, SELFPAY | PROVIDERS: Emergency Provider Internal Medicine; Visit Provider Radiology Diagnostic Radiology | DX: N28.1 Cyst of kidney, acquired (principal); Z94.0 Kidney transplant status | CPT/HCPCS: 74176 ==

== ENCOUNTER 2024-11-02 10:07 | Emergency (ER) | payer MEDICARE, SELFPAY ==
--- NOTE | ~2024-11-02 | US_ITS ---
EXAMINATION: Ultrasound renal, transplanted kidney. CLINICAL INFORMATION: Right flank pain. COMPARISON: Correlated to noncontrast CT dated October 29, 2024. TECHNIQUE: Real-time ultrasound of the transplanted kidney, right lower pelvis using grayscale and color Doppler technique. FINDINGS: Limited examination. No spectral Doppler analysis or the resistive indicis in the transplanted kidney. 10 x 7 x 5 cm. Slight increased echotexture. Normal renal cortical thickness. Mild prominent pelvicalyceal system. 1.1 cm exophytic anechoic lesion, midportion without septations or nodular components. 1.5 cm anechoic lesion at the corticomedullary junction without septations or nodular component. No fluid collections surrounding the transplanted kidney. There is flow on color Doppler interrogation. US/US renal RT IMPRESSION: Mild pelvicalyceal ectasia. No gross fluid collections. Mild increased renal echotexture. Disease kidney cannot be excluded. Cystic lesions, transplanted kidney. Electronically signed by: Jeffy Isaacs MD 11/02/2024 02:03 PM EDT
--- NOTE | 2024-11-02 10:26 | ED.GENADULT ---
HPI - General Adult General Chief complaint: Abdominal Pain Stated complaint: ABD PAIN,RCT KIDNEY INF PER EMS Time Seen by Provider: 11/02/24 10:26 Source: patient, RN notes reviewed and old records reviewed Mode of arrival: ambulatory Limitations: no limitations History of Present Illness ED Provider: Ernestina HPI narrative: Patient is a 64-year-old female with reported history of renal transplant at [facility] September of 1999, follows with Dr. Shin, T2DM, HTN, HLD, obesity, hypothyroidism, lupus presenting with return of right flank pain. Seen here on 10/29 and treated for pyelonephritis with cefuroxime, tramadol for pain. Symptoms improved with treatment but RLQ pain radiating to right flank and back returned today. Pain over area of renal transplant. Denies fevers, nausea, vomiting, diarrhea, constipation. Did not notify Dr. Shin about her recent treatment. MD complaint: RLQ pain Related Data Home Medications ?Medication ?Instructions ?Recorded ?Confirmed insulin syringe-needle U-100 1 mL #10 ea 02/21/20 09/20/21 30 gauge x 1/2 levothyroxine 50 mcg tablet 50 mcg PO DAILY@0600 02/21/20 10/24/23 nortriptyline 25 mg capsule 25 mg PO DAILY PRN Back Pain 02/21/20 10/24/23 prednisone 5 mg tablet 5 mg PO DAILY 02/21/20 10/24/23 simvastatin 20 mg tablet 20 mg PO DAILY 02/21/20 10/24/23 acetaminophen 500 mg tablet 1,000 mg PO Q6H PRN Pain 10/24/23 10/24/23 cyclobenzaprine 10 mg tablet 10 mg PO TID PRN Muscle Spasm 10/24/23 10/24/23 doxazosin 4 mg tablet 4 mg PO BEDTIME 10/24/23 10/24/23 glipizide 2.5 mg tablet, extended 2.5 mg PO DAILY 10/24/23 10/24/23 release 24 hr insulin aspart U-100 100 unit/mL 1 sliding scale dose subcut TIDAC 10/24/23 10/24/23 subcutaneous solution (Novolog U-100 Insulin aspart) insulin degludec 200 unit/mL (3 130 unit subcut DAILY diabetes 10/24/23 10/24/23 mL) subcutaneous pen (Tresiba FlexTouch U-200 insulin) metoprolol tartrate 100 mg tablet 100 mg PO BID 10/24/23 10/24/23 mycophenolate mofetil 500 mg tablet 1,500 mg PO BID 10/24/23 10/24/23 omeprazole 20 mg capsule,delayed 20 mg PO DAILY@0630 10/24/23 10/24/23 release semaglutide 0.25 mg or 0.5 mg (2 0.25 mg subcut QWEEK 12/23/23 mg/3 mL) subcutaneous pen injector (Ozempic) Previous Rx's ?Medication ?Instructions ?Recorded flash glucose scanning reader #1 ea 02/25/21 (FreeStyle Neetu 2 [place]) flash glucose sensor (FreeStyle #2 ea 02/25/21 Neetu 2 Sensor kit) albuterol sulfate 90 mcg/actuation 2 puff inhalation Q4-6H PRN 01/24/24 aerosol inhaler shortness of breath or wheezing #6.7 grams benzonatate 100 mg capsule 100 mg PO TID PRN cough #20 caps 01/24/24 prednisone 20 mg tablet 40 mg (2 x 20 mg) PO DAILY #10 tabs 01/24/24 cefuroxime axetil 500 mg tablet 500 mg PO BID #20 tabs 10/29/24 tramadol 50 mg tablet 50 mg PO Q8H PRN pain #6 tabs 10/29/24 Allergies Allergy/AdvReac Type Severity Reaction Status Date / Time morphine AdvReac Shakiness Verified 11/02/24 10:34 Review of Systems Review of Systems: As per HPI Yes all other systems are reviewed and are negative Constitutional: Constitutional: Reports as per HPI PMFSH Past Medical History Medical History (Updated 11/02/24 @ 16:49 by Chika Do NP) UTI (urinary tract infection) Diabetes type 2, uncontrolled Type 2 diabetes mellitus with retinopathy Obesity due to excess calories Type 2 diabetes mellitus with diabetic polyneuropathy Chronic kidney disease Retinopathy Subclinical hypothyroidism Gout Migraine headache Lupus Essential hypertension Hyperlipidemia LDL goal <100 BMI 50.0-59.9, adult Diabetes mellitus with hyperglycemia Surgical History Hx of colonoscopy Hx of adenoidectomy Hx of tonsillectomy Hx of appendectomy Hx of kidney transplant Family History Family History Father Colon cancer Kidney disease Mother Throat cancer COPD (chronic obstructive pulmonary disease) Alzheimer disease Paternal Grandfather Colon cancer Maternal Grandfather Lung cancer Social History Social History Household Members: Family Alcohol intake: current Alcohol intake frequency: a few times a week Patient Tobacco Use Status: Never used Tobacco Advance Directives: No Advance Directives Information Provided: Yes Physical Exam ED Vital Signs: Vital Signs - 24 hr 11/02/24 10:30 11/02/24 12:08 11/02/24 14:00 Temperature 97.8 F 97.2 F 97.0 F Pulse Rate 73 75 82 Respiratory Rate 16 16 16 Blood Pressure 188/79 H 140/70 H 131/77 Pulse Oximetry 97 96 97 Oxygen Delivery Method Room Air Room Air Room Air BMI result Body Mass Index 47.4 Vital signs have been reviewed and appear to be correct. Blood pressure elevated. Heart rate normal. Respiratory rate normal. Temperature normal. Oxygen saturation normal. Const General: cooperative, healthy appearing and no acute distress Orientation/consciousness: oriented to person, oriented to place, oriented to time and patient oriented x3 Limitations: no limitations HENMT Head: Yes normocephalic and Yes atraumatic Ears: external ears normal General nose exam: Normal external nose present Face and sinus: Yes face symmetric Mouth: oropharynx normal and moist mucous membranes Throat: Yes uvula midline Eyes Pupils: Equal, round and reactive pupils present Neck Neck: Yes normal visual inspection and Yes supple Resp Effort & Inspection: normal respiratory effort and able to speak in complete sentences Auscultation: clear to auscultation bilaterally Cardio Rate: regular rate Rhythm: regular rhythm Heart sounds: S1 normal heart sound present and S2 normal heart sound present GI Palpation (GI): Soft to palpation, Tenderness to palpation present (GI) in the RLQ (over area of renal transplant), no guarding and No Rebound tenderness present Auscultation: normoactive bowel sounds General: Yes no CVA tenderness Back/Spine/Pelvis Back: no CVA tenderness Skin General skin exam: elasticity normal and turgor normal Neuro General: oriented to person, oriented to place, oriented to time, patient oriented x3, moves all extremities, no focal motor deficits and CN's II-XI intact bilaterally Cranial nerves: Yes Equal, round and reactive pupils present Cognition (Neuro): normal cognition Extrem General: Yes full ROM, Yes no pedal edema and Yes no calf tenderness Psych Mental Status: mental status grossly normal Affect: normal affect Thought process: Normal thought process present Medications Administered Discontinued Medications Generic Name Dose Route Start Last Admin Trade Name Rhett PRN Reason Stop Dose Admin Fentanyl 100 mcg 11/02/24 10:52 11/02/24 11:03 Fentanyl Citrate/Pf 100 Mcg/2 Ml Vial IVPUSH 11/02/24 10:53 100 mcg ONCE ONE Administration Protocol Medical Decision Making Medical Decision Making [facility] Narrative: Patient is a 64-year-old female with reported history of renal transplant at [facility] September of 1999, follows with Dr. Shin, T2DM, HTN, HLD, obesity, hypothyroidism, lupus presenting with return of right flank pain. On exam patient is awake, A+Ox3, BP elevated, VS otherwise WNL, afebrile, normal neurological exam without focal deficits, physical exam findings as above. Given reported symptoms and physical exam findings, initial differential includes but is not limited to UTI, pyelonephritis, transplant complication. Labs notable for slight leukocytosis, thrombocytopenia, baseline renal function, no significant electrolyte abnormalities. Case discussed with attending, Dr. Barahona who performed POC ultrasound of transplanted kidney which was without evidence of hydronephrosis, stranding, cyst like structure noted. Comprehensive renal u/s ordered. Dr. Chapman recommending consult with renal. Case discussed with Dr. Shin, patient's patient scheduling coordinator, who recommends transfer to [facility] for further evaluation. Patient agreeable to this. Transfer accepted by [facility] hospitalist, however, no bed available at this time, they will call back when a bed is available. Patient placed on physician observation pending bed availability. Differential Diagnosis Differential Diagnoses: The differential diagnosis associated with the presentation includes As per [facility] Admission/Observation Consideration of admission/observation: Escalation of care including admission/observation considered Patient would have been admitted to the hospital had his clinical presentation warranted hospital admission. Consult Healthcare Provider Management of the patient was discussed with: Office Admin (Dr. Shin, nephrology) Lab Data [facility] Lab Attestation statement: I reviewed the patient's lab results. As per [facility] 11/02/24 11:23 11/02/24 11:23 Labs: Lab Results 11/02/24 11/02/24 Range/Units 11:09 11:23 WBC 10.9 H (4.8-10.8) X10*3/uL RBC 3.40 L (4.20-5.50) X10*6/uL Hgb 9.7 L (12.0-16.0) g/dl Hct 30.1 L (37.0-47.0) % MCV 88.5 (80.0-98.0) fL MCH 28.5 (27.0-33.0) pg MCHC 32.2 (31.0-35.0) g/dl RDW 13.6 (11.0-16.0) % Plt Count 136 L (160-400) X10*3/uL MPV 9.9 (9.4-12.3) fL Immature Gran % (Auto) 0.7 H (0.0-0.4) % Neut % (Auto) 75.5 H (45-73) % Lymph % (Auto) 14.5 L (20-40) % Rich % (Auto) 7.6 (2-11) % Eos % (Auto) 1.5 (0-4) % Baso % (Auto) 0.2 (0-2) % Lymph # (Auto) 1.6 (1.2-4.9) X10*3/uL Rich # (Auto) 0.8 (0.1-1.2) X10*3/uL Eos # (Auto) 0.2 (0.0-0.4) X10*3/uL Baso # (Auto) 0.0 (0.0-0.2) X10*3/uL Abs Immat Gran (auto) 0.08 H (0.00-0.03) X10*3/uL Absolute Neuts (auto) 8.2 (2.0-8.3) x10*3/uL Absolute Nucleated RBC 0.000 (0.0-0.012) X10*3/uL Nucleated RBC % (auto) 0.0 (0.0-0.2) /100WBC Sodium 144 (135-145) mmol/L Potassium 3.7 (3.3-5.1) mmol/L Chloride 109 H (96-108) mmol/L Carbon Dioxide 26 (22-29) mmol/L Anion Gap 13 (12-20) BUN 49 H (9-16) mg/dL Creatinine 2.80 H (0.5-1.4) mg/dL Estim Creat Clear Calc 27.9 Estimated GFR 17 Random Glucose 123 H (60-115) mg/dL Calcium 8.4 (8.4-10.2) mg/dL Total Bilirubin 0.4 (0.0-1.0) mg/dL AST 24 (5-31) U/L ALT 15 (0-31) U/L Alkaline Phosphatase 77 (39-117) U/L Total Protein 5.9 L (6.5-8.0) g/dL Albumin 3.4 L (3.5-5.0) g/dL Lipase 49 (8-78) U/L Urine Color Yellow Urine Appearance Clear Urine pH 6.0 (5.0-9.0) Ur Specific [place] 1.015 (1.005-1.025) Urine Protein >=1000 (4+) H (Neg-Trace) mg/dL Urine Glucose (UA) 100 H (Negative) mg/dL Urine Ketones Negative (Negative) mg/dL Urine Blood Small (1+) H (Negative) Urine Nitrite Negative (Negative) Ur Leukocyte Esterase Negative (Negative) Urine RBC 0-2 (0-2) /HPF Urine WBC 0-5 (0-5) /HPF Ur Squamous Epith Cells 6-10 (0-2) /HPF Urine Bacteria None Seen (None Seen) Hyaline Casts 0-2 (0-2) /LPF Independent Interpretation I performed an independent interpretation of an: Ultrasound Interpretation: Renal u/s is without evidence of obstruction, hydronephrosis, stranding Radiology Impression Discussion of test interpretation with radiology: I have reviewed the radiologist's reading. Radiologist Impression: US/US renal RT IMPRESSION: Mild pelvicalyceal ectasia. No gross fluid collections. Mild increased renal echotexture. Disease kidney cannot be excluded. Cystic lesions, transplanted kidney. External Record Review External record reviewed: Inpatient record, Office record and Outpatient record Discharge Plan Discharge Clinical Impression: Acute right lower quadrant pain Prescriptions: No Action prednisone 20 mg tablet 40 mg PO DAILY Qty: 10 0RF benzonatate 100 mg capsule 100 mg PO TID PRN (Reason: cough) Qty: 20 0RF albuterol sulfate 90 mcg/actuation HFA aerosol inhaler 2 puff inhalation Q4-6H PRN (Reason: shortness of breath or wheezing) Qty: 6.7 0RF cefuroxime axetil 500 mg tablet 500 mg PO BID Qty: 20 0RF tramadol 50 mg tablet 50 mg PO Q8H PRN (Reason: pain) Qty: 6 0RF cyclobenzaprine 10 mg tablet 10 mg PO TID PRN (Reason: Muscle Spasm) metoprolol tartrate 100 mg tablet 100 mg PO BID glipizide 2.5 mg tablet extended release 24hr 2.5 mg PO DAILY omeprazole 20 mg capsule,delayed release(DR/EC) 20 mg PO DAILY@0630 doxazosin 4 mg tablet 4 mg PO BEDTIME insulin degludec [Tresiba FlexTouch U-200] 200 unit/mL (3 mL) insulin pen 130 unit subcut DAILY mycophenolate mofetil 500 mg tablet 1,500 mg PO BID insulin aspart U-100 [Novolog U-100 Insulin aspart] 100 unit/mL solution 1 sliding scale dose subcut TIDAC acetaminophen 500 mg Tablet 1,000 mg PO Q6H PRN (Reason: Pain) (DME) insulin syringe-needle U-100 1 mL 30 gauge x 1/2 syringe See Rx Instructions .ROUTE .MEDSUPPLY Qty: 10 Rx Instructions: As directed prednisone 5 mg tablet 5 mg PO DAILY simvastatin 20 mg tablet 20 mg PO DAILY levothyroxine 50 mcg tablet 50 mcg PO DAILY@0600 nortriptyline 25 mg capsule 25 mg PO DAILY PRN (Reason: Back Pain) (DME) FreeStyle Neetu 2 Sensor Kit See Rx Instructions .ROUTE .MEDSUPPLY Qty: 2 11RF Rx Instructions: As directed every 2 weeks (DME) FreeStyle Neetu 2 [place] Misc See Rx Instructions .ROUTE .MEDSUPPLY Qty: 1 0RF Rx Instructions: As directed Ozempic 0.25 mg or 0.5 mg (2 mg/3 mL) pen injector 0.25 mg subcut QWEEK Rx Instructions: for 4 weeks Print Language: American
[2024-11-02 10:30] VITALS: BP 148/92; BP 188/79; PULSE 72; PULSE 73; RESP 16; TEMP 36.6; O2SAT 97; O2SAT 99; BMI 47.4
[2024-11-02 11:20] LABS: Appearance Urine Clear; Glucose Urine UA 100 mg/dL (Negative); PH 6.0 (5.0-9.0); Specific Gravity - Urine 1.015 (1.005-1.025); UMIC TRIGGER UACC YES
[2024-11-02 11:29] LABS: MANUAL DIFF FLAG NO
[2024-11-02 11:38] LABS: Hematocrit 30.1 % (37.0-47.0); Hemoglobin 9.7 g/dl (12.0-16.0); Imm Gran Abs Auto 0.08 X10*3/uL (0.00-0.03); Imm Gran Pct Auto 0.7 % (0.0-0.4); Lymphocytes Absolute Auto 1.6 X10*3/uL (1.2-4.9); Mean Corpuscular HGB Conc 32.2 g/dl (31.0-35.0); Mean Corpuscular Hemoglobin 28.5 pg (27.0-33.0); Mean Corpuscular Volume 88.5 fL (80.0-98.0); NRBC Abs Auto 0.000 X10*3/uL (0.0-0.012); NRBC Pct Auto 0.0 /100WBC (0.0-0.2); Platelet Count 136 X10*3/uL (160-400); Red Blood Count 3.40 X10*6/uL (4.20-5.50); White Blood Count 10.9 X10*3/uL (4.8-10.8)
--- OUTSIDE RECORDS SUMMARY | 2024-11-02 11:41 | XMS_ITS | Patient Health Record ---
Author Organization [facility] [place] [place] Address [address] [place] [address] Care Team Providers Care Dishwashing Machine Repairer Name Role Phone Davey Conde MD Primary Care Provider Unavailab Radhames Fischer Unavailable [phone] Allergies No Known Allergies Reason For Referral No Information Medications Medication SIG (Take, Route, Frequency, Duration) Notes Start Date End Date Status [id number] 50-325-40 MG TAKE 1 TABLET BY MOUTH EVERY 4 HOURS. NO MORE THAN 3 TIMES A WEEK Oral; Duration: 5 Days Unknown Furosemide 40 MG Oral; Duration: 30 Days Unknown Cyclobenzaprine HCl 10 MG Oral; Duration: 30 Days Unknown Vitamin D (Ergocalciferol) 1.25 MG (22876 UT) Oral; Duration: 84 Days Unknown Omeprazole [...] Negative Encounters Encounter Location Date Provider Diagnosis [facility] [address] [place] [address] 04/05/2024 Radhames Borja Plan Of Treatment No Information Insurance Providers Payer Name Payer Address Payer Phone Subscriber Number Group Number Insured Name Patient Relationship to Insured Coverage Start Date Coverage End Date [employer] Open [address] [address] [place] [address] [id number] Queenie Krishna Self - patient is the insured Medical (General) History Medical History History ICD Code Arthritis Back,Hip,and Knee pain Diabetic Headaches/Migraines Kidney disease Numbness Chicken pox Lupus
--- OUTSIDE RECORDS SUMMARY | 2024-11-02 11:41 | XMS_ITS | Encounter Summary ---
Author Organization [facility] Address [address] [place] [address] Phone Care Team Providers Care Materials Planner Name Role Phone Davey Conde MD Primary Care Provider [phone] Reason for Referral * Outpatient Services (Routine) - Closed Specialty Diagnoses / Procedures Referred By Contyaneth t Referred To Contact Diagnoses Kidney transplant status Kidney replaced by transplant Procedures Generic Infusion Orders [place] Shin MD Phone: tel: fax: Referral ID Status Reason Start Date Expiration Date Visits Re quested Visits Authorized [id number] Closed 11/10/2023 11/09/2024 1 1 Encounter Details Date Type Department Care Team (Latest Contact Info) Description 11/10/2023 Office Communication [facility] [address] [place] [address] [place] Shin MD [address] [facility] [address] [place] [address] Kidney transplant status (Primary Dx); [...] Office Visit [facility] [address] [phone] [place] Shin MD [address] [phone] documented as of this encounter Visit Diagnoses Diagnosis Kidney transplant status- Primary Kidney replaced by transplant documented in this encounter Care Teams Materials Planner Relationship Specialty Start Date End Date Davey Conde MD [address] [place] [address] PCP - General 05/07/20 documented as of this encounter
--- OUTSIDE RECORDS SUMMARY | 2024-11-02 11:42 | XMS_ITS | Clinical Summary ---
Author Organization [facility] Address [address] [place] [address] Care Team Providers Care Engine Assembler Name Role Phone Pcp, No Primary Care Provider Davey Jacobs MD Unavailable [phone] Social History Tobacco Use Types Packs/Day [...] patient's age to complete this topic Insurance [facility] Care Teams Engine Assembler Relationship Specialty Start Date End Date Pcp, No [address] [place] [address] PCP - General 12/12/19 Davey Conde MD [address] [place] [address] Referring Provider Internal Medicine 09/26/23
[2024-11-02 11:44] LABS: Alanine Aminotransferase 15 U/L (0-31); Albumin Level 3.4 g/dL (3.5-5.0); Alkaline Phosphatase 77 U/L (39-117); Anion Gap 13 (12-20); Aspartate Amino Transferase 24 U/L (5-31); Blood Urea Nitrogen 49 mg/dL (9-16); Calcium 8.4 mg/dL (8.4-10.2); Carbon Dioxide 26 mmol/L (22-29); Chloride 109 mmol/L (96-108); Creatinine Clr Calc Pharmacy 27.9; Estimated Glomerular Filt Rate 17; Lipase 49 U/L (8-78); Potassium 3.7 mmol/L (3.3-5.1); Sodium 144 mmol/L (135-145); Total Protein 5.9 g/dL (6.5-8.0)
[2024-11-02 12:08] VITALS: BP 140/70; PULSE 75; RESP 16; TEMP 36.2; O2SAT 96
[2024-11-02 14:00] VITALS: BP 131/77; PULSE 82; RESP 16; TEMP 36.1; O2SAT 97
[2024-11-02 19:37] VITALS: BP 126/75; PULSE 71; RESP 20; TEMP 36.5; O2SAT 99
[2024-11-02 20:06] VITALS: BP 126/75; PULSE 71; RESP 20; TEMP 36.5; O2SAT 99
[2024-11-03 09:45] LABS: Glucose, Whole Blood 85 mg/dL (60-115)
== END 2024-11-02 22:38 | disposition short-term general hospital (02) ==
PROVIDERS: Registered Nurse Emergency; Emergency Provider Emergency Medicine; PCP Physician Assistant Medical
DX: R10.31 Right lower quadrant pain (principal); I10 Essential (primary) hypertension; R10.9 Unspecified abdominal pain; E11.9 Type 2 diabetes mellitus without complications; M54.50 Low back pain, unspecified; Z79.4 Long term (current) use of insulin; Z79.899 Other long term (current) drug therapy
CPT/HCPCS: 36415; 76775; 80053; 81001; 82947; 83690; 85025; 99285; J3010

== ENCOUNTER → 2024-11-02 12:51 | Outpatient (BNV) | payer MEDICARE, SELFPAY | PROVIDERS: Emergency Provider Emergency Medicine; PCP Physician Assistant Medical; Visit Provider Radiology Diagnostic Radiology | DX: R10.11 Right upper quadrant pain (principal); N28.1 Cyst of kidney, acquired; Z94.0 Kidney transplant status | CPT/HCPCS: 76775 ==

== ENCOUNTER 2024-11-14 13:03 | Outpatient (AMB) | payer MEDICARE, SELFPAY ==
--- NOTE | 2024-11-14 13:05 | MHC.PC.OV ---
Vital Signs 11/14/24 13:10 Height 5 ft 0.51 in Weight 280 lb 8 oz BMI 53.9 BP 134/62 Blood Pressure Location Rt brachial Position Sitting Respiration 20 Pulse 76 Pulse Source Pulse Oximeter Temp 97.9 F Temp Source Temporal Artery Scan Pulse Oximetry (%) 98 Oxygen Delivery Method Room Air Intake Visit Reasons: Establish Care Intake Note: Visit Reason: TCM Intake Note: Patient is here for hospital discharge follow up. Patient was discharged from [facility] Required: No Sterile Technician: Not Required per policy Accompanied by: Self / Same As Patient Allergies morphine Adverse Reaction (Verified 11/14/24 13:40) Shakiness Medication List - Last Reconciled 11/14/24 by Erica Brandon PA-C albuterol sulfate 90 mcg/actuation 2 puffs inhalation Q4-6H PRN benzonatate 100 mg PO TID PRN rzhjltgrdq-kxarappllejym-wfik 50-325-40 mg 1 tab PO carvedilol 25 mg PO BID cefuroxime axetil 500 mg PO BID clonidine HCl 0.1 mg PO BID doxazosin 4 mg PO BEDTIME ergocalciferol (vitamin D2) (Vitamin D2) 1,250 mcg PO QWEEK flash glucose scanning reader (FreeStyle Neetu 2 [facility]) As directed flash glucose sensor (FreeStyle Neetu 2 Sensor kit) As directed every 2 weeks insulin aspart U-100 (Novolog U-100 Insulin aspart) 1 sliding scale dose subcut TIDAC insulin degludec (Tresiba FlexTouch U-200 insulin) 130 units subcut DAILY insulin syringe-needle U-100 As directed levothyroxine 50 mcg PO DAILY@0600 methocarbamol 1,500 mg PO TID mycophenolate mofetil 1,500 mg PO BID omeprazole 20 mg PO DAILY@0630 prednisone 5 mg PO DAILY simvastatin 20 mg PO DAILY tirzepatide (Mounjaro) mg subcut torsemide 20 mg PO BID tramadol 50 mg PO Q8H PRN Tobacco use date assessed: 11/14/24 Dental Screening Dental Screen Date: 11/14/24 Did you have a dental visit in the last 12 months?: No Did you have a dental problem in the last 6 months where you did not have access to dental care?: No Was dental information given to patient?: Patient has dentist HPI HPI Comments History of Present Illness Details Patient presents to the office for a TCM visit. Date of admission:11/02/24 Date of discharge:11/05/24 This is a Follow-up from admission at [facility] [place] [facility] [place] HPI/hospital course/hospital discharge: The patient is a 64-year-old female presenting for a new patient appointment and discharge follow-up from [facility]. The patient has a history of renal transplant performed in September 1999 at [facility]. She follows up with Dr. Shin, a document review specialist, for her renal health. Recently, she experienced a return of right flank pain, initially treated as pyelonephritis with cefuroxime at [facility] on 10/29/2024. However, the pain persisted, radiating from the right lower quadrant to the right flank, therefore she went back to [facility] and then she was transferred to [facility] for further evaluation and management. While at [facility] she was evaluated by Nephrology/Dr. Shin and was later determined to be muscular in nature. A trial of muscle relaxants and lidoderm patches provided relief. The patient has a medical history significant for type 2 diabetes mellitus, hypertension, hyperlipidemia, hypothyroidism, and systemic lupus erythematosus. She is on a regimen that includes 10 mg of prednisone daily as part of her anti-rejection therapy for her kidney transplant. Her diabetes management includes the use of a Freestyle Neetu 2 sensor and insulin therapy which includes as far sliding scale and Tresiba 100 units. While in the hospital she was noted to have slight leukocytosis, chronic anemia and thrombocytopenia. Her renal function was at baseline while in the hospital with GFR of 17. She also has low protein and albumin levels which are chronic. The patient has a history of bronchitis, for which she uses an albuterol inhaler. She also has a history of cataract surgery, arthritis, and GERD, managed with omeprazole. Her cholesterol levels are elevated, with low HDL cholesterol, and her thyroid levels are slightly elevated, necessitating a recheck. Socially, the patient lives with her and daughter. She has a family history of colon cancer, prompting a recommendation for a colonoscopy. She has not had a recent mammogram and has declined one for this year. She is awaiting rescheduling for cataract surgery, which was postponed due to her recent hospitalization. Discharged to/Current Location: Home Lives with: and daughter Diagnosis: Muscular skeletal pain of lower back, pyelonephritis, renal transplant recipient, renal cysts, hypertensive urgency, hyperlipidemia, diabetes, hypothyroidism, acute UTI Procedures performed: Patient had CT scan abdomen pelvis at [facility] on 10/29/2024; renal ultrasound at [facility] on 11/02/2024 New medications: Lidoderm patch, Discontinued medications: No medications were discontinued. Change medications/dosing: While at [facility] she was started on muscle relaxant Robaxin and Lidoderm patches which helped significantly with her pain. Tresiba was decreased to 100 units. She was instructed to increase Mounjaro by 10 mg weekly to help with weight loss although this was at the timing inspector office not while in the hospital. Pending labs: No pending labs are indicated at this time. Pending diagnostic test: No pending diagnostic test are pending at this time. Any Follow-up Labs required? Patient will see nephrology and they will repeat patient's renal function labs. Any Follow-up Diagnostic test required? No diagnostic test required at this time. How are you feeling? Okay other than some back pain Are you in any pain or discomfort? Patient reports improvement with the Robaxin and Lidoderm patches. She would like a refill on the Vicodin that she was prescribed by Dr. Aguila in the past. Do you have any questions about your condition or discharge instructions? Patient does not have any questions or concerns about her discharge instructions or her condition Were you able to get your medications filled? Patient was able to feel all her medications Do you have any questions about your medications? Patient does not have any questions about her medication Any referrals required? No referrals required at this time Were you able to schedule your follow-up appointment? Patient was able to schedule her follow-up visits with PCP and Nephrology If home health was ordered, have they contact you? Patient not interested in home health and were not ordered Any outpatient services, if so, are you scheduled? Patient not interested in any outpatient services Are there any additional resources like transportation you might need during her recovery? - VNA? Patient not interested in VNA services - WINDOWS PHONE DEVELOPER? Patient not interested in WINDOWS PHONE DEVELOPER services - Meals on wheels? Patient not interested in meals on wheels Educational need/resources: What support system do you have? , son PFS Medical History (Updated 11/14/24 @ 16:29 by Erica Brandon PA-C) Morbid obesity with BMI of 50.0-59.9, adult Low serum albumin Colon cancer screening Mammogram declined Family history of colon cancer Low serum total protein level Low HDL (under 40) GERD (gastroesophageal reflux disease) Arthritis Cataracts, bilateral Bronchitis Degenerative joint disease (DJD) of lumbar spine Thrombocytopenia Anemia due to chronic kidney disease Pyelonephritis SLE (systemic lupus erythematosus) Hypothyroidism Establishing care with new doctor, encounter for Lower back pain UTI (urinary tract infection) Diabetes type 2, uncontrolled Type 2 diabetes mellitus with retinopathy Obesity due to excess calories Type 2 diabetes mellitus with diabetic polyneuropathy Chronic kidney disease Retinopathy Subclinical hypothyroidism Gout Migraine headache Lupus Essential hypertension Hyperlipidemia LDL goal <100 BMI 50.0-59.9, adult Diabetes mellitus with hyperglycemia Surgical History (Updated 11/14/24 @ 16:22 by Erica Brandon PA-C) Hx of colonoscopy Hx of adenoidectomy Hx of tonsillectomy Hx of appendectomy Hx of kidney transplant Family History Father Colon cancer Kidney disease Mother Throat cancer COPD (chronic obstructive pulmonary disease) Alzheimer disease Paternal Grandfather Colon cancer Maternal Grandfather Lung cancer Social History Household Members: Family Housing: House Alcohol intake: current Alcohol intake frequency: a few times a month Patient Tobacco Use Status: Never used Tobacco service: No Current occupational status: employed and disabled Cognitive needs: Yes (cane) Hearing needs: No Vision needs: Yes (rx glasses) Questionnaire PHQ-9 Over the last 2 weeks, how often have you been bothered by any of the following problems? 1. Little interest or pleasure in doing things: not at all 2. Feeling down, depressed, or hopeless: not at all 3. Trouble falling or staying asleep, or sleeping too much: not at all 4. Feeling tired or having little energy: not at all 5. Poor appetite or overeating: not at all 6. Feeling bad about yourself - or that you are a failure or have let yourself or your family down: not at all 7. Trouble concentrating on things, such as reading the newspaper or watching television: not at all 8. Moving or speaking so slowly that other people could have noticed. Or the opposite - being so fidgety or restless that you have been moving around a lot more than usual: not at all 9. Thoughts that you would be better off or of hurting yourself in some way: not at all Total score: 0 Depression Screening Interpretation: Negative Depression Screening Done: Yes 24774 - PHQ-9 Billing: Yes Source: Developed by Drs. John Hunt, Lacy Hernandez, Moreno Camacho and colleagues, with an educational consuelo from [employer]. Thrive Questionnaire Date Thrive assessed: 11/14/24 I am a: Patient What is your living situation today?: I have a steady place to live Within the past 12 months, did the food you bought not last and you didn't have the money to get more?: Never true Within the past 12 months, did you worry whether your food would run out before you got money to buy more?: Never true Do you have trouble paying for medicines?: No Do you have trouble getting transportation to medical appointments?: No Do you have trouble paying your heating and electricity bill?: No Do you have trouble taking care of your child, family member or friend?: No Do you have trouble with day-to-day activities such as bathing, preparing meals, shopping, managing finances, etc.?: No Are you currently unemployed and looking for a job?: No Are you interested in more education?: No Please select the resources that you would like help with: None Currently or been in a relationship where the following occur: No concerns reported THRIVE Score: 0 AUDIT C Alcohol Use Questionnaire (AUDIT-C) 1. How often do you have a drink containing alcohol?: 2-4 times a month 2. How many drinks containing alcohol do you have on a typical day when you are drinking?: 1 or 2 3. How often do you have six or more drinks on one occasion?: Never Total Score: 2 Score Reviewed/Action Taken: No MAGDALENA-7 AMB Questionnaire MAGDALENA-7 Date MAGDALENA - 7 assessed: 11/14/24 Feeling nervous, anxious, or on edge: 0 = Not at all Not being able to stop or control worryin = Not at all Worrying too much about different things: 0 = Not at all Trouble relaxin = Not at all Being so restless that it is hard to sit still: 0 = Not at all Becoming easily annoyed or irritable: 2 = More than half the days Feeling afraid as if something awful might happen: 0 = Not at all Total MAGDALENA-7 score (0-4 normal; 5-9 mild; 10-14 moderate; 15-21 severe): 2 Source: Developed by Drs. John Hunt, Lacy Hernandez, Moreno Camacho and colleagues, with an educational consuelo from [employer]. MAGDALENA-7 Assessment Billing MAGDALENA-7 Assessment Tool: MAGDALENA-7 Assessment 41753 Review of Systems Const Details: - Gastrointestinal: Reports right flank pain radiating to right lower quadrant. Denies nausea, vomiting, diarrhea, or constipation. - Respiratory: Reports use of albuterol inhaler for asthma. Denies current shortness of breath. - Musculoskeletal: Reports degenerative changes of the spine and arthritis in knees. - Endocrine: Reports elevated thyroid levels. Denies recent changes in thyroid medication. - Ophthalmologic: Reports cataract surgery pending rescheduling. Physical exam (Primary Care) Vital Signs: Last Vital Signs Temp 97.9 F 11/14/24 13:10 Pulse 76 11/14/24 13:10 Resp 20 11/14/24 13:10 BP 134/62 11/14/24 13:10 Pulse Ox 98 11/14/24 13:10 Oxygen Delivery Method Room Air 11/14/24 13:10 Vitals signs have been reviewed. Care Plan Goal for BP management: <140/90 at Goal BMI result Body Mass Index 53.9 BMI Assessment/Plan discussion: High BMI High, discussed plan: lifestyle, weight reduction, dietary, physical activity and alcohol moderation Tobacco/Smoking Status: Tobacco use Status Tobacco use date assessed 11/14/24 11/14/24 13:09 Patient Tobacco Use Status Never used Tobacco 11/14/24 13:37 PHQ-9: PHQ-9 Score PHQ-9: Total score 0 11/14/24 13:09 Depression Screening Interpretation: Negative Thrive Assessment: Date of Thrive Assessment Date Thrive assessed 11/14/24 11/14/24 13:09 Currently or been in a relationship where the following occur: No concerns reported Const Other: Appearance: Alert. Oriented X3. No acute distress. Head: Normal external exam. Normocephalic. Atraumatic. Eyes: Pupils are equal, round, and reactive to light. Extraocular movements intact. Conjunctiva and sclera normal. Eyelids normal. Throat: Pharynx normal. Uvula midline. Moist mucous membranes. Neck: Normal inspection. Neck supple. Full range of motion. Cardiovascular: Normal heart rate and rhythm. Respiratory: No respiratory distress. Painless inspiration. Back: Normal range of motion. Skin: Skin warm and dry. Normal skin color. Normal skin turgor. No rashes/lesions/lacerations noted. Extremities: No lower extremity edema. Extremities exhibit normal range of motion. Neuro: Oriented X 3. No motor deficit. No sensory deficit. Reflexes normal. Normal steady gait. Results Reviewed Results Reviewed: - Labs: Elevated white blood cell count, thrombocytopenia, elevated BUN and creatinine, low GFR, low protein and albumin levels. - Imaging: CT scan showed degenerative changes of the spine, no acute fracture. Coding Level of Care Code New Pt Level 5 (80870) Complex EM visit Add On G2211 Diagnoses Establishing care with new doctor, encounter for Z76.89 Hx of kidney transplant Z94.0 Diabetes type 2, uncontrolled E11.65 Glycemic state: with hypoglycemia Essential hypertension I10 Hyperlipidemia LDL goal <100 E78.5 Hypothyroidism E03.9 SLE (systemic lupus erythematosus) M32.9 Pyelonephritis N12 Anemia due to chronic kidney disease N18.9; D63.1 Thrombocytopenia D69.6 Degenerative joint disease (DJD) of lumbar spine M47.816 Bronchitis J40 Cataracts, bilateral H26.9 Arthritis M19.90 GERD (gastroesophageal reflux disease) K21.9 Low HDL (under 40) E78.6 Low serum total protein level R79.89 Family history of colon cancer Z80.0 Chronic kidney disease N18.9 Mammogram declined Z53.20 Colon cancer screening Z12.11 Low serum albumin R77.0 Morbid obesity with BMI of 50.0-59.9, adult E66.01; Z68.43 Additional Codes PHQ-9 - 39213 - PHQ-9 Billing: Yes ([id number]) MAGDALENA-7 Assessment Billing - MAGDALENA-7 Assessment Tool: MAGDALENA-7 Assessment 94116 ([id number]) Time Spent (min) 60 Assessment & Plan Assessment & Plan (1) Establishing care with new doctor, encounter for: Code(s): Z76.89 - Persons encountering health services in other specified circumstances Category: Medical (2) Hx of kidney transplant: Comment: kidney transplant 1999 due to end-stage renal disease being followed by Dr. Shin Code(s): Z94.0 - Kidney transplant status Category: Surgical Plan: The patient will continue follow-up with Dr. Shin, the document review specialist, for renal health management. Recent evaluations ruled out urinary tract infection and kidney infection. A comprehensive renal ultrasound was performed, and the patient was advised to discontinue antibiotics. Follow-up with nephrology is scheduled for further evaluation and management. Condition is chronic and stable continue to monitor. (3) Diabetes type 2, uncontrolled: Code(s): E11.65 - Type 2 diabetes mellitus with hyperglycemia Category: Medical Qualifiers: Glycemic state: with hypoglycemia Plan: The patient's diabetes management includes the use of a Yoozonyle Neetu 2 sensor and insulin therapy, which includes as far sliding scale and Tresiba 100 units. The patient is advised to continue monitoring blood glucose levels and follow up with endocrinology as needed. Condition is chronic and stable will continue to monitor (4) Essential hypertension: Code(s): I10 - Essential (primary) hypertension Category: Medical Plan: The patient is on multiple antihypertensive medications, including carvedilol and clonidine. She is advised to continue her current regimen and monitor blood pressure regularly. Condition is chronic and stable continue to monitor. (5) Hyperlipidemia LDL goal <100: Code(s): E78.5 - Hyperlipidemia, unspecified Category: Medical Plan: The patient is advised to continue her current lipid-lowering therapy and dietary modifications. A pamphlet on dietary recommendations for improving HDL cholesterol levels was provided. Condition is chronic and stable will continue to monitor. (6) Hypothyroidism: Code(s): E03.9 - Hypothyroidism, unspecified Category: Medical Plan: The patient's thyroid levels are slightly elevated, and a recheck is recommended. She is advised to continue her current levothyroxine dosage and follow up with endocrinology for further management. Condition is chronic and stable continue to monitor. (7) SLE (systemic lupus erythematosus): Code(s): M32.9 - Systemic lupus erythematosus, unspecified Category: Medical Plan: The patient is on prednisone as part of her lupus management. She is advised to continue her current regimen and follow up with rheumatology as needed. Condition is chronic and stable continue to monitor. (8) Pyelonephritis: Code(s): N12 - Tubulo-interstitial nephritis, not specified as acute or chronic Category: Medical Plan: The patient was initially treated for pyelonephritis with cefdinir. However, the pain was later determined to be muscular in nature, and antibiotics were discontinued. She is advised to follow up with nephrology for further evaluation. (9) Anemia due to chronic kidney disease: Code(s): N18.9 - Chronic kidney disease, unspecified; D63.1 - Anemia in chronic kidney disease Category: Medical Plan: The patient was initially treated for pyelonephritis with cefuroxime. However, the pain was later determined to be muscular in nature, and antibiotics were discontinued. She is advised to follow up with nephrology for further evaluation. (10) Thrombocytopenia: Code(s): D69.6 - Thrombocytopenia, unspecified Category: Medical Plan: The patient has a history of thrombocytopenia with recent lab results showing low platelet count. She denies any acute complaints. Will re-evaluate at next visit. (11) Degenerative joint disease (DJD) of lumbar spine: Code(s): M47.816 - Spondylosis without myelopathy or radiculopathy, lumbar region Category: Medical Plan: The patient reports degenerative changes of the spine. An MRI may be considered for further evaluation if symptoms persist. She is advised to follow up with orthopedics for further management. Condition is chronic and stable continue to monitor. (12) Bronchitis: Code(s): J40 - Bronchitis, not specified as acute or chronic Category: Medical Plan: The patient uses an albuterol inhaler for intermittent bronchitis management. She is advised to continue her current regimen and follow up with pulmonology as needed. (13) Cataracts, bilateral: Code(s): H26.9 - Unspecified cataract Category: Medical Plan: The patient is awaiting rescheduling for cataract surgery, which was postponed due to her recent hospitalization. She is advised to follow up with ophthalmology for further management. Condition is chronic and stable continue to monitor. (14) Arthritis: Code(s): M19.90 - Unspecified osteoarthritis, unspecified site Category: Medical Plan: The patient reports arthritis in her knees. She is advised to follow up with rheumatology for further evaluation and management. Condition is chronic and stable continue to monitor. (15) GERD (gastroesophageal reflux disease): Code(s): K21.9 - Gastro-esophageal reflux disease without esophagitis Category: Medical Plan: The patient is on omeprazole for GERD management. She is advised to continue her current regimen and follow up with gastroenterology as needed. Condition is chronic and stable continue to monitor. (16) Low HDL (under 40): Code(s): E78.6 - Lipoprotein deficiency Category: Medical Plan: The patient is advised to continue her current lipid-lowering therapy and dietary modifications. A pamphlet on dietary recommendations for improving HDL cholesterol levels was provided. Condition is chronic and stable continue to monitor. (17) Low serum total protein level: Code(s): R79.89 - Other specified abnormal findings of blood chemistry Category: Medical Plan: The patient has low protein levels. Will continue to monitor. Condition is chronic and stable continue to monitor. (18) Family history of colon cancer: Code(s): Z80.0 - Family history of malignant neoplasm of digestive organs Category: Medical Plan: The patient has a family history of colon cancer. A colonoscopy is recommended for screening purposes. (19) Chronic kidney disease: Code(s): N18.9 - Chronic kidney disease, unspecified Category: Medical Plan: Patient being followed by Nephrology at [facility] Dr. Shin. Has a follow-up appointment. Condition is chronic and stable continue to monitor. (20) Mammogram declined: Code(s): Z53.20 - Procedure and treatment not carried out because of patient's decision for unspecified reasons Category: Medical Plan: Patient educated about breast cancer screening. Patient declined at this time. She understands risks and benefits. She still declining mammogram despite understanding risks and benefits. Will continue to ask at next visit/physical. (21) Colon cancer screening: Code(s): Z12.11 - Encounter for screening for malignant neoplasm of colon Category: Medical Plan: Patient will refer to gastroenterology for colon cancer screening. (22) Low serum albumin: Code(s): R77.0 - Abnormality of albumin Category: Medical Plan: The patient has low albumin levels. Will continue to monitor. (23) Morbid obesity with BMI of 50.0-59.9, adult: Code(s): E66.01 - Morbid (severe) obesity due to excess calories; Z68.43 - Body mass index [BMI] 50.0-59.9, adult Category: Medical Plan: Patient to improve diet and exercise regimen. Condition is chronic and stable continue to monitor. Plan Plan Patient was informed and verbally consented to the use of an ambient scribe for clinic note documentation during this visit. 1. Renal Transplant The patient will continue follow-up with Dr. Shin, the document review specialist, for renal health management. Recent evaluations ruled out urinary tract infection and kidney infection. A comprehensive renal ultrasound was performed, and the patient was advised to discontinue antibiotics. Follow-up with nephrology is scheduled for further evaluation and management. 2. Type 2 Diabetes Mellitus The patient's diabetes management includes the use of a Yoozonyle Neetu 2 sensor and insulin therapy, recently adjusted to 100 units daily. The patient is advised to continue monitoring blood glucose levels and follow up with endocrinology as needed. 3. Hypertension The patient is on multiple antihypertensive medications, including carvedilol and clonidine. She is advised to continue her current regimen and monitor blood pressure regularly. 4. Hyperlipidemia The patient is advised to continue her current lipid-lowering therapy and dietary modifications. A pamphlet on dietary recommendations for improving HDL cholesterol levels was provided. 5. Hypothyroidism The patient's thyroid levels are slightly elevated, and a recheck is recommended. She is advised to continue her current levothyroxine dosage and follow up with endocrinology for further management. 6. Systemic Lupus Erythematosus The patient is on prednisone as part of her lupus management. She is advised to continue her current regimen and follow up with rheumatology as needed. 7. Pyelonephritis The patient was initially treated for pyelonephritis with cefdinir. However, the pain was later determined to be muscular in nature, and antibiotics were discontinued. She is advised to follow up with nephrology for further evaluation. 8. Anemia The patient has a history of chronic anemia. Recent lab results indicate low hemoglobin levels. She is advised to follow up with her primary care provider for further evaluation and management. 9. Thrombocytopenia The patient has a history of thrombocytopenia with recent lab results showing low platelet count. She denies any acute complaints. Will re-evaluate at next visit. 10. Degenerative Changes Of The Spine The patient reports degenerative changes of the spine. An MRI may be considered for further evaluation if symptoms persist. She is advised to follow up with orthopedics for further management. 11. Intermittent bronchitis The patient uses an albuterol inhaler for intermittent bronchitis management. She is advised to continue her current regimen and follow up with pulmonology as needed. 12. Cataract The patient is awaiting rescheduling for cataract surgery, which was postponed due to her recent hospitalization. She is advised to follow up with ophthalmology for further management. 13. Arthritis The patient reports arthritis in her knees. She is advised to follow up with rheumatology for further evaluation and management. 14. Gerd The patient is on omeprazole for GERD management. She is advised to continue her current regimen and follow up with gastroenterology as needed. 15. Elevated Thyroid Levels The patient's thyroid levels are slightly elevated, and a recheck is recommended. She is advised to continue her current levothyroxine dosage and follow up with endocrinology for further management. 16. Elevated Cholesterol The patient is advised to continue her current lipid-lowering therapy and dietary modifications. A pamphlet on dietary recommendations for improving HDL cholesterol levels was provided. 17. Low Hdl Cholesterol The patient is advised to continue her current lipid-lowering therapy and dietary modifications. A pamphlet on dietary recommendations for improving HDL cholesterol levels was provided. 18. Low Albumin The patient has low protein levels. Will continue to monitor. Condition is chronic and stable continue to monitor. 19. Low Protein Levels The patient has low protein levels. Will continue to monitor. Condition is chronic and stable. 20. Elevated Bun And Creatinine The patient has elevated BUN and creatinine levels, indicating compromised renal function. She is advised to follow up with nephrology for further evaluation and management. 21. Low Gfr The patient has a low GFR, indicating compromised renal function. She is advised to follow up with nephrology for further evaluation and management. 22. History Of Covid-19 The patient has a history of COVID-19. She is advised to continue monitoring her respiratory health and follow up with her primary care provider as needed. 23. History Of Rhinovirus The patient has a history of rhinovirus. She is advised to continue monitoring her respiratory health and follow up with her primary care provider as needed. 24. History Of Colon Cancer In Family The patient has a family history of colon cancer. A colonoscopy is recommended for screening purposes During the visit, we discussed the patient's recent hospitalization and the management of her renal transplant, including the discontinuation of antibiotics after ruling out infection. We reviewed her diabetes management plan, emphasizing the importance of regular blood glucose monitoring. The patient was advised to continue her current antihypertensive and lipid-lowering therapies. We also discussed the need for a thyroid recheck and the importance of follow-up with nephrology and endocrinology. The patient was informed about the recommendation for a colonoscopy due to her family history of colon cancer. We also addressed her musculoskeletal concerns, suggesting an MRI if symptoms persist. Follow-up appointments with relevant specialists were recommended. Orders: Orders TSH reflex Free T4 Today Z00.00 - Encounter for general adult medical examination without abnormal findings Vitamin B12 and Folate Today Z00.00 - Encounter for general adult medical examination without abnormal findings Magnesium Today Z00.00 - Encounter for general adult medical examination without abnormal findings Vitamin D 25-OH Total Today Z00.00 - Encounter for general adult medical examination without abnormal findings XR lumbar spine 4V min Today M54.50 - Low back pain, unspecified Referrals Gastroenterology Referral Z12.11 - Encounter for screening for malignant neoplasm of colon Medications: Changed From doxazosin 4 mg PO BEDTIME To doxazosin 4 mg PO BID From insulin degludec (Tresiba FlexTouch U-200 insulin) 130 units subcut DAILY diabetes To insulin degludec (Tresiba FlexTouch U-200 insulin) 100 units subcut DAILY Discontinued cefuroxime axetil Discontinued Reason: Doctor's Order 500 mg PO BID 20 tabs 0RF tramadol Discontinued Reason: Doctor's Order 50 mg PO Q8H PRN 6 tabs 0RF pain Patient Instructions: - Continue monitoring blood glucose levels using the Freestyle Neetu 2 sensor. - Follow up with Dr. Shin for renal health management. - Continue current antihypertensive and lipid-lowering therapies. - Schedule a colonoscopy for screening purposes. - Follow up with endocrinology for thyroid management. - Consider an MRI for back pain if symptoms persist.
[2024-11-14 13:10] VITALS: BP 134/62; PULSE 76; RESP 20; TEMP 36.6; O2SAT 98; BMI 53.9
--- OUTSIDE RECORDS SUMMARY | 2024-11-14 13:49 | XMS_ITS | Clinical Summary ---
Author Organization [facility] Address [address] [place] [address] Care Team Providers Care Sheep Killer Name Role Phone Pcp, No Primary Care Provider Davey Jacobs MD Unavailable [phone] Social History Tobacco Use Types Packs/Day [...] patient's age to complete this topic Insurance [facility] MEDICARE Care Teams Sheep Killer Relationship Specialty Start Date End Date Pcp, No [address] [place] [address] PCP - General 12/12/19 Davey Conde MD [address] [place] [address] Referring Provider Internal Medicine 09/26/23
--- OUTSIDE RECORDS SUMMARY | 2024-11-14 13:49 | XMS_ITS | Encounter Summary ---
Author Organization [facility] Address [address] [facility] [address] [place] [address] Phone Care Team Providers Care Dye Tub Tender Name Role Phone Davey Conde MD Primary Care Provider [phone] Reason for Referral * Outpatient Services (Routine) - Closed Specialty Diagnoses / Procedures Referred By Contyaneth t Referred To Contact Diagnoses Kidney transplant status Kidney replaced by transplant Procedures Generic Infusion Orders Berlin Shin MD Phone: tel: fax: Referral ID Status Reason Start Date Expiration Date Visits Re quested Visits Authorized [id number] Closed 11/10/2023 11/09/2024 1 1 Encounter Details Date Type Department Care Team (Latest Contact Info) Description 11/10/2023 Office Communication [facility] [address] [facility] [address] [place] [address] Berlin Shin MD [address] [facility] [address] [place] [address] Kidney transplant status (Primary Dx); [...] Care Team (Late st Contact Info) Description 11/21/2024 2:45 PM EDT Office Visit [facility] [address] [phone] Berlin Shin MD [facility] [address] [phone] 01/11/2025 10:15 AM EDT Office Visit [facility] [address] [phone] Berlin Shin MD [facility] [address] [phone] documented as of this encounter Visit Diagnoses Diagnosis Kidney transplant status- Primary Kidney replaced by transplant documented in this encounter Care Teams Dye Tub Tender Relationship Specialty Start Date End Date Davey Conde MD [address] [place] [address] PCP - General 05/07/20 documented as of this encounter
--- OUTSIDE RECORDS SUMMARY | 2024-11-14 13:49 | XMS_ITS | Patient Health Record ---
[facility] [place] Address [address] [place] [address] Care Team Providers Care Stummel Selector Name Role Phone Davey Conde MD Primary Care Provider Unavailab Radhames Fischer Unavailable [phone] Allergies No Known Allergies Reason For Referral No Information Medications Medication SIG (Take, Route, Frequency, Duration) Notes Start Date End Date Status Bqwonposbu-VNZU-Hcxobifc 50-325-40 MG TAKE 1 TABLET BY MOUTH EVERY 4 HOURS. NO MORE THAN 3 TIMES A WEEK Oral; Duration: 5 Days Unknown Furosemide 40 MG Oral; Duration: 30 Days Unknown Cyclobenzaprine HCl 10 MG Oral; Duration: 30 Days Unknown Vitamin D (Ergocalciferol) 1.25 MG (99228 UT) Oral; Duration: 84 Days Unknown Omeprazole [...] Negative Encounters Encounter Location Date Provider Diagnosis [facility] [address] [place] [address] 04/05/2024 Radhames Borja Plan Of Treatment No Information Insurance Providers Payer Name Payer Address Payer Phone Subscriber Number Group Number Insured Name Patient Relationship to Insured Coverage Start Date Coverage End Date [employer] [address] [address] [place] [address] [phone] [id number] Queenie Krishna Self - patient is the insured Medical (General) History Medical History History ICD Code Arthritis Back,Hip,and Knee pain Diabetic Headaches/Migraines Kidney disease Numbness Chicken pox Lupus
--- OUTSIDE RECORDS SUMMARY | 2024-11-14 13:49 | XMS_ITS | Clinical Summary ---
Author Organization [facility] Address [address] [place] [id number] Phone Care Team Providers Care Paper Cap Machine Operator Name Role Phone Pcp, Unknown Primary Care Provider Unavailabl e Social History Tobacco Use Types Packs/Day Years Used Date Smoking Tobacco: Never Assessed Education Answer Date Recorded Are you interested in more education? Not on bea e 09/01/2023 Are you concerned about learning? Not on file 09/01/2023 No 09/01/2023 No 09/01/2023 Digital Access Answer Date Recorded No 09/01/2023 No 09/01/2023 Reliable internet access at home? Not on file 09/01/2023 Device with a working camera? Not on file Comments Unknown Sex and Gender Information Value Date Recorded Sex Assigned at Not on file Legal Sex Female 10:46 AM EDT Gender Identity Not on file Sexual Orientation Not on file Plan of Treatment Not on file Medical Devices Not on file [facility] REPLACEMENT [facility] PPO MEDICARE REPLACEMENT [facility] PPO MEDICARE [facility]PLACEMENT [facility] PPO MEDICARE REPLAC[facility] MEDICARE REPLACEMENT [facility] Care Teams Paper Cap Machine Operator Relationship Specialty Start Date End Date Pcp, Unknown PCP - General 09/01/23 Additional Source Comments The information contained in this document represents components of the legal health record. It is not the complete legal health record.[facility]
== END 2024-11-14 14:12 | disposition home or self-care (01) ==
LOC: HO.HMCSH 13:03
PROVIDERS: PCP Physician Assistant Medical; Visit Provider Physician Assistant Medical
DX: E11.65 Type 2 diabetes mellitus with hyperglycemia (principal); I12.9 Hypertensive chronic kidney disease with stage 1 through stage 4 chronic kidney disease, or unspecified chronic kidney disease; M32.9 Systemic lupus erythematosus, unspecified; E66.01 Morbid (severe) obesity due to excess calories; Z68.43 Body mass index [BMI] 50.0-59.9, adult; Z76.89 Persons encountering health services in other specified circumstances; Z94.0 Kidney transplant status; E78.5 Hyperlipidemia, unspecified; E03.9 Hypothyroidism, unspecified; N12 Tubulo-interstitial nephritis, not specified as acute or chronic; N18.9 Chronic kidney disease, unspecified; D63.1 Anemia in chronic kidney disease

== ENCOUNTER → 2024-11-14 13:03 | Outpatient (BNVA) | payer MEDICARE, SELFPAY | PROVIDERS: PCP Physician Assistant Medical; Visit Provider Physician Assistant Medical | DX: Z76.89 Persons encountering health services in other specified circumstances (principal); I12.9 Hypertensive chronic kidney disease with stage 1 through stage 4 chronic kidney disease, or unspecified chronic kidney disease; E11.22 Type 2 diabetes mellitus with diabetic chronic kidney disease; N18.9 Chronic kidney disease, unspecified; D63.1 Anemia in chronic kidney disease; E11.65 Type 2 diabetes mellitus with hyperglycemia; E78.5 Hyperlipidemia, unspecified; E03.9 Hypothyroidism, unspecified; M32.9 Systemic lupus erythematosus, unspecified; N12 Tubulo-interstitial nephritis, not specified as acute or chronic; M47.816 Spondylosis without myelopathy or radiculopathy, lumbar region; J40 Bronchitis, not specified as acute or chronic; H26.9 Unspecified cataract; M19.90 Unspecified osteoarthritis, unspecified site; K21.9 Gastro-esophageal reflux disease without esophagitis; E78.6 Lipoprotein deficiency; R79.89 Other specified abnormal findings of blood chemistry; R77.0 Abnormality of albumin; E66.01 Morbid (severe) obesity due to excess calories; Z68.43 Body mass index [BMI] 50.0-59.9, adult; Z71.3 Dietary counseling and surveillance; Z80.0 Family history of malignant neoplasm of digestive organs; Z94.0 Kidney transplant status | CPT/HCPCS: 96127; 99202 ==

== ENCOUNTER 2025-04-12 11:02 | Outpatient (AMB) | payer MEDICARE, SELFPAY ==
--- OUTSIDE RECORDS SUMMARY | 2024-04-06 04:00 | XMS_ITS ---
Author Organization [facility] Address [address] [place] [address] Care Team Providers Care Line Repairer Tower Name Role Phone Davey Conde MD Primary Care Provider Unavailab Radhames Fischer Unavailable [phone] Allergies No Known Allergies Medications Medication SIG (Take, Route, Frequency, Duration) Notes Start Date End Date Status Furosemide 40 MG Oral; Duration: 30 Days Unknown Vitamin D (Ergocalciferol) 1.25 MG (60979 UT) Oral; Duration: 84 Days Unknown Tresiba FlexTouch 200 UNIT/ML ADMINISTER 125 UNITS UNDER THE SKIN DAILY IN THE MORNING Subcutaneous; Duration: 42 Days Unknown Albuterol Sulfate HFA 108 (90 Base) MCG/ACT Inhalation; Duration: 16 Days Unknown Benzonatate 100 MG TAKE 1 CAPSULE BY MO UT THREE TIMES DAILY NEEDED FOR COUGH Oral; Duration: 6 Days Unknown Omeprazole 20 MG TAKE 1 CAPSULE BY MO UT EVERY DAY Oral; Duration: 90 Days Unknown Combivent Respimat 20-100 MCG/ACT INHALE 1 PUFF BY MOUTH FOUR TIMES DAILY. MAY TAKE ADDITIONAL PUFFS NEEDED. NOT TO EXCEED 6 PUFFS IN 24 HOURS Inhalation; Duration: 30 Days Unknown Ozempic (2 MG/DOSE) 8 MG/3ML Subcutaneou s; Duration: 28 Days Unknown predniSONE 5 MG Oral; Duration: 90 Days Unknown Carvedilol 25 MG Oral; Duration: 90 Days Unknown Tgbnsrmakd-CWCS-Zxqosswk 50-325-40 MG TAKE 1 TABLET BY MOUTH EVERY 4 HOURS. NO MORE THAN 3 TIMES A WEEK Oral; Duration: 5 Days Unknown Cyclobenzaprine HCl 10 MG Oral; Duration: 30 Days Unknown NovoLOG FlexPen 100 UNIT/ML Subcutaneous ; Duration: 24 Days Unknown HYDROcodone-Acetaminophen 5-325 MG TAKE 1 TABLET BY MOUTH TWICE DAILY Oral; Duration: 7 Days Unknown Levothyroxine Sodium 50 MCG Oral; Duration: 90 Days Unknown hydrALAZINE HCl 50 MG Oral; Duration: 90 Days Unknown Combivent Respimat 20-100 MCG/ACT Inhalation; Duration: 30 Days Unknown Metoprolol Tartrate 100 MG Oral; Duration: 10 Days Unknown Simvastatin 20 MG Oral; Duration: 90 Days Unknown Doxazosin Mesylate 4 MG Oral; Duration: 85 Days Unknown metFORMIN HCl 1000 MG Oral; Duration: 90 Days Unknown Nortriptyline HCl 25 MG TAKE 1 CAPSULE B Y MOUTH DAILY Oral; Duration: 90 Days Unknown Cyclobenzaprine HCl 10 MG TAKE 1 TABLET BY MOUTH THREE TIMES DAILY NEEDED Oral; Duration: 30 Days Unknown hydrALAZINE HCl 50 MG TAKE 1 TABLET BY M OUTH TWICE DAILY Oral; Duration: 90 Days Unknown Social History Tobacco Use: Social History Observation Description Date Details (start date - stop date) Never Smoker NA - NA Tobacco use other than smoking: Question Answer Notes Are you an other tobacco user? No Tobacco Control (Standard) Question Answer Notes Tobacco use: Nonsmoker Additional Findings: Tobacco non-user Current no nsmoker AUDIT-C (Standard) Question Answer Notes Did you have a drink contain ing alcohol in the past year? Yes How often did you have six o r more drinks on one occasion in the past year? Declined to specify (0 point) How many drinks did you have on a typical day when you were drinking in the past year? Declined to specify (0 point) How often did you have a dri nk containing alcohol in the past year? Monthly or less (1 point) Points 1 Interpretation Negative Encounters Encounter Location Date Provider Diagnosis [facility] [place] [address] [place] [id number] 04/06/2024 Radhames Borja Plan Of Treatment No Information Progress Notes * Queenie KRISHNA RDOB: [birth year] (64 yo F)Acc No.[id number]:04/06/2024 Progress Notes Patient: Joe CANTUQueenie R Provider: Shellie Borja DPM :1960 A ge:63 Y S ex:Female Date:04/06/2024 Address:[address] [place] [address], [id number] Pcp:Davey Conde MD Subjective: * Chief Complaints: * * ROS: G eneral/Constitutional: Nausea d enies. V omiting d enies. H issa Thirst d enies. L oss appetite d enies. C hills d enies. F atigue d enies.?Fever d enies. N ight Sweats d enies. U nexplained weight loss d enies. U nexplained weight gain d enies. H EENTM: Dentures d enies. D izziness d enies. G lasses/contacts a dmits. R etinopathy d enies. B lurred/double vision d enies. T MJ?denies. D ischarge/drainage d enies. I mplants d enies. S ore throat d enies. D ental implants d enies. H bennie of hearing d enies. D ifficulty chewing/swallowing/speaking d enies. N ose bleeds d enies. S ore mouth d enies. ? R espiratory: On Oxygen d enies. P neumonia/pleurisy d enies.?Bronchitis d enies. E mphysema d enies. C oughing d enies. C ough blood?denies. S hortness of breath a dmits. W heezing a dmits. C ardiovascular: Pacemaker d enies. 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 W PW d enies. C HF d enies. H eart attack d enies. S eptal defect d enies. R apid beat d enies. C hest pain d enies. A trial Fib. d enies. M urmur/Palpitations d enies. G astrointestinal: Hemorrhoids d enies. S tomach/Abdominal pain d enies. D ark blood stool d enies. I rritable bowel d enies. C onstipation d enies. D iarrhea d enies. H ematology: Swelling d enies. C lots d enies. V aricose Veins d enies. B ruising d enies. B leeding problem d enies. G enitourinary: Blood urine d enies. F requent/Painfu/urination/bladder control d enies. K idney stones d enies. I nfection (UTI) d enies. N ephropathy d enies. s ex trans dis (STD) d enies. P rostate d enies. M usculoskeletal: Hammertoes d enies. B unions d enies. B ack Pain d enies. M uscle Cramps/ Resting d enies. M uscle cramps / walking d enies.?Generalized aches and pains d enies. W eakness d enies. I nteg.: Grant d enies. S cars d enies. C orns/calluses?denies. I ngrown nails d enies. P ainful nails d enies. O pen Sores d enies. R ashes d enies. N eurologic: Difficulty sleeping d enies. B rain disorder d enies. N umbness d enies. B alance trouble d enies. C onfusion d enies. F ainting/blackouts d enies. T ingling d enies. T remors d enies. * Medical History: A rthritis, Back,Hip,and Knee pain, Diabetic, Headaches/Migraines, Kidney disease, Numbness, Chicken pox, Lupus. * Family History: M other: . F ather: . * Social History: T obacco Use: T obacco use other than smoking A re you an other tobacco user? N o Tobacco Control (Standard) T obacco use: N onsmoker A dditional Findings: Tobacco non-user C urrent nonsmoker D rugs/Alcohol: D rugs H ave you used drugs other than those for medical reasons in the past 12 months? N o M iscellaneous: C affeine: yes. Children: yes. Marital status: . 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 D rug/Alcohol: A SKIP-C (Standard) D id you have a drink containing alcohol in the past year? Y es H ow often did you have six or more drinks on one occasion in the past year? D eclined to specify (0 point) H ow many drinks did you have on a typical day when you were drinking in the past year? D eclined to specify (0 point) H ow often did you have a drink containing alcohol in the past year? M onthly or less (1 point) P oints 1 I nterpretation N egative * Medications: U nknown Doxazosin Mesylate 4 MG Tablet Oral , Unknown Combivent Respimat 20-100 MCG/ACT Aerosol Solution Inhalation , Unknown Irigrsotvy-JOLT-Mnmsxtfz 50-325-40 MG Tablet TAKE 1 TABLET BY MOUTH EVERY 4 HOURS. NO MORE THAN 3 TIMES A WEEK Oral , Unknown Cyclobenzaprine HCl 10 MG Tablet Oral , Unknown HYDROcodone- Acetaminophen 5-325 MG Tablet TAKE 1 TABLET BY MOUTH TWICE DAILY Oral , Unknown Levothyroxine Sodium 50 MCG Tablet Oral , Unknown NovoLOG FlexPen 100 UNIT/ML Solution Pen- injector Subcutaneous , Unknown Carvedilol 25 MG Tablet Oral , Unknown Ozempic (2 MG/DOSE) 8 MG/3ML Solution Pen-injector Subcutaneous , Unknown predniSONE 5 MG Tablet Oral , Unknown Combivent Respimat 20-100 MCG/ACT Aerosol Solution INHALE 1 PUFF BY MOUTH FOUR TIMES DAILY. MAY TAKE ADDITIONAL PUFFS NEEDED. NOT TO EXCEED 6 PUFFS IN 24 HOURS Inhalation , Unknown Omeprazole 20 MG Capsule Delayed Release TAKE 1 CAPSULE BY MOUTH EVERY DAY Oral , Unknown Tresiba FlexTouch 200 UNIT/ML Solution Pen- injector ADMINISTER 125 UNITS UNDER THE SKIN DAILY IN THE MORNING Subcutaneous , Unknown Furosemide 40 MG Tablet Oral , Unknown Vitamin D (Ergocalciferol) 1.25 MG (40676 UT) Capsule Oral , Unknown Albuterol Sulfate HFA 108 (90 Base) MCG/ACT Aerosol Solution Inhalation , Unknown Benzonatate 100 MG Capsule TAKE 1 CAPSULE BY MOUTH THREE TIMES DAILY NEEDED FOR COUGH Oral , Unknown Cyclobenzaprine HCl 10 MG Tablet TAKE 1 TABLET BY MOUTH THREE TIMES DAILY NEEDED Oral , Unknown hydrALAZINE HCl 50 MG Tablet TAKE 1 TABLET BY MOUTH TWICE DAILY Oral , Unknown metFORMIN HCl 1000 MG Tablet Oral , Unknown Nortriptyline HCl 25 MG Capsule TAKE 1 CAPSULE BY MOUTH DAILY Oral , Unknown Simvastatin 20 MG Tablet Oral , Unknown hydrALAZINE HCl 50 MG Tablet Oral , Unknown Metoprolol Tartrate 100 MG Tablet Oral * Allergies: N .K.D.A. Objective: * Vitals: Assessment: Plan: * Treatment: * Images: * The named appointment provid er may or may not be the originator of this progress note, and it is not deemed complete until electronically signed by the appointment provider. Sign off status: Pending * Provider: Shellie Borja DPM Date: 06/07/2023 Generated for Veronica Mccarthy on: 06/13/2024 02:39 PM EST
--- NOTE | 2025-04-12 11:22 | MHC.PC.OV ---
Vital Signs 04/12/25 11:26 Height 5 ft 5 in Weight 281 lb BMI 46.8 BP 163/70 H Blood Pressure Location Rt brachial Position Sitting Respiration 18 Pulse 97 Pulse Source Pulse Oximeter Temp 97.3 F Temp Source Temporal Artery Scan Pulse Oximetry (%) 97 Oxygen Delivery Method Room Air Intake Visit Reasons: TCM Intake Note: Visit Reason: TCM Intake Note: Patient is here for hospital discharge follow up. Patient was discharged from [facility] Assistant Front Desk Manager Required: No Flange Machine Operator: Not Required per policy Accompanied by: Self / Same As Patient Allergies morphine Adverse Reaction (Verified 04/12/25 12:01) Shakiness Medication List - Last Reconciled 04/12/25 by Erica Brandon PA-C albuterol sulfate 90 mcg/actuation 2 puffs inhalation Q4-6H PRN belatacept IV benzonatate 100 mg PO TID PRN wbtldympwi-mmpttvgmherzc-bdbm 50-325-40 mg 1 tab PO carvedilol 25 mg PO BID cephalexin 500 mg PO DAILY 7 days clonidine HCl 0.1 mg PO BID doxazosin 4 mg PO BID flash glucose scanning reader (KudoStyle Neetu 2 [place]) As directed flash glucose sensor (FreeStyle Neetu 2 Sensor kit) As directed every 2 weeks hydrocodone-acetaminophen 5-300 mg 1 tab PO DAILY PRN insulin aspart U-100 (Novolog U-100 Insulin aspart) 1 sliding scale dose subcut TIDAC insulin degludec (Tresiba FlexTouch U-200 insulin) 100 units subcut DAILY insulin syringe-needle U-100 As directed ipratropium-albuterol 20-100 mcg/actuation (Combivent Respimat) 1 puff inhalation Q4H levothyroxine 50 mcg PO DAILY@0600 methocarbamol 1,500 mg (2 x 750 mg) PO TID 30 days mycophenolate mofetil 1,500 mg PO BID omeprazole 20 mg PO DAILY@0630 prednisone 5 mg PO DAILY simvastatin 20 mg PO DAILY tirzepatide (Mounjaro) mg subcut Tobacco use date assessed: 11/14/24 Dental Screening Dental Screen Date: 11/14/24 HPI HPI Comments History of Present Illness Details Patient presents to the office for a TCM visit. Date of admission: 03/26/2025 Date of discharge: 04/04/2025 This is a Follow-up from admission at [facility] HPI/Hospital Course/Discharge Summary: The patient is a 64-year-old female presenting for a follow-up visit after her recent discharge from [facility], following treatment for a hypertensive emergency and acute kidney injury. Her blood pressure reached dangerously high levels at 289/189 mmHg, leading to acute kidney injury. Hospitalization lasted from March 26 to April 04, during which a kidney biopsy was performed that showed extensive chronic changes without acute rejection. Her treatment included adjustments to her medication regimen: torsemide was discontinued, amlodipine was initiated, and insulin dosages were modified. She now reports symptoms indicative of a urinary tract infection, such as cloudy urine and chills. Antibiotics initiated in the emergency department were later stopped under nephrology guidance. Her medical history includes type 2 diabetes, a significant contributor to her overall health complexity, hypertension, hemorrhoids with occasional bleeding, chronic knee pain managed with cortisone shots, and persistent left leg numbness. Discharged to/Current Location: Home Lives with: ANDREW Diagnosis: ANDREW superimposed on CKD; renal transplant recipient sent; hypertensive urgency; type 2 diabetes with hyperglycemia; hypertensive urgency; UTI; elevated troponin; hyperlipidemia Procedures performed: Patient had a renal biopsy New medications: Patient was started on amlodipine 5 mg daily Discontinued medications: Patient was discontinued off of furosemide and [place] Change medications/dosing: Patient is clonidine was changed to transdermal 0.31 patch topically every week she also had her insulin glargine changed to 25 units twice daily and her lispro 2-10 units sliding scale 3 times a day Pending labs: None at this time from PCP standpoint only with nephrology Pending diagnostic test: None at this time from PCP standpoint only with nephrology Any Follow-up Labs required? Will repeat CBC, CMP and a UA Any Follow-up Diagnostic test required? None at this time from PCP standpoint only with nephrology How are you feeling? Like she has a UTI with cloudy urine. No abd/flank/back pain, No hematuria. Are you in any pain or discomfort? pain from Hemorrhoids and chronic knee pain. No pain related to the kidney's. Do you have any questions about your condition or discharge instructions? Not at this time Were you able to get your medications filled? Yes Do you have any questions about your medications? Not at this time Any referrals required? PT due to left leg chronic numbness Were you able to schedule your follow-up appointment? Yes Kidney Doctor Thursday; She will call endo for follow up If home health was ordered, have they contact you? Not interested Any outpatient services, if so, are you scheduled? Not interested Are there any additional resources like transportation you might need during her recovery? - VNA? Not interested - FERRY OPERATOR? Not interested - Meals on wheels? Not interested Educational need/resources: What support system do you have? , Mother in Law, daughter, daughter in law, 3 grand kids Social History - Lives with , [id number], daughter, and three grandchildren - Daughter struggles with substance use issues - Actively involved in caring for her grandchildren - Declined home health services like visiting nurse associates, personal care assistants, and Meals on Wheels [facility] Medical History (Updated 04/13/25 @ 14:46 by Erica Brandon PA-C) Hypertensive urgency Acute kidney injury superimposed on CKD Left leg paresthesias Hemorrhoids Hospital discharge follow-up Left leg pain Morbid obesity with BMI of 50.0-59.9, adult Low serum albumin Colon cancer screening Mammogram declined Family history of colon cancer Low serum total protein level Low HDL (under 40) GERD (gastroesophageal reflux disease) Arthritis Cataracts, bilateral Bronchitis Degenerative joint disease (DJD) of lumbar spine Thrombocytopenia Anemia due to chronic kidney disease Pyelonephritis SLE (systemic lupus erythematosus) Hypothyroidism Establishing care with new doctor, encounter for Lower back pain UTI (urinary tract infection) Diabetes type 2, uncontrolled Type 2 diabetes mellitus with retinopathy Obesity due to excess calories Type 2 diabetes mellitus with diabetic polyneuropathy Chronic kidney disease Retinopathy Subclinical hypothyroidism Gout Migraine headache Lupus Essential hypertension Hyperlipidemia LDL goal <100 BMI 50.0-59.9, adult Diabetes mellitus with hyperglycemia Surgical History Hx of colonoscopy Hx of adenoidectomy Hx of tonsillectomy Hx of appendectomy Hx of kidney transplant Family History Father Colon cancer Kidney disease Mother Throat cancer COPD (chronic obstructive pulmonary disease) Alzheimer disease Paternal Grandfather Colon cancer Maternal Grandfather Lung cancer Social History Household Members: Family Housing: House Alcohol intake: current Alcohol intake frequency: a few times a month Patient Tobacco Use Status: Never used Tobacco service: No Current occupational status: employed and disabled Cognitive needs: Yes (cane) Hearing needs: No Vision needs: Yes (rx glasses) Questionnaire Thrive Questionnaire Date Thrive assessed: 11/14/24 MAGDALENA-7 AMB Questionnaire MAGDALENA-7 Date MAGDALENA - 7 assessed: 11/14/24 Source: Developed by Drs. John Hunt, Lacy Hernandez, Moreno Camacho and colleagues, with an educational consuelo from [employer]. Review of Systems Const Details: - Constitutional: Reports chills and feeling unwell - Genitourinary: Reports cloudy, almost white urine and localized discomfort - Gastrointestinal: Reports bleeding with bowel movements due to hemorrhoids - Musculoskeletal: Reports chronic knee pain and chronic numbness in the left leg All systems reviewed & are unremarkable except as noted in HPI and below Physical exam (Primary Care) Vital Signs: Last Vital Signs Temp 97.3 F 04/12/25 11:26 Pulse 97 04/12/25 11:26 Resp 18 04/12/25 11:26 BP 163/70 H 04/12/25 11:26 Pulse Ox 97 04/12/25 11:26 Oxygen Delivery Method Room Air 04/12/25 11:26 Vitals signs have been reviewed. Care Plan Goal for BP management: <140/90 patient to continue current medications and speak to Dr. Shin her solder deposit operator about possibly adding new medications due to blood pressure still elevated BMI result Body Mass Index 46.8 BMI Assessment/Plan discussion: High BMI High, discussed plan: lifestyle, weight reduction, dietary, physical activity, alcohol moderation and other Tobacco/Smoking Status: Tobacco use Status Tobacco use date assessed 11/14/24 04/12/25 11:24 Patient Tobacco Use Status Never used Tobacco 04/12/25 11:24 Thrive Assessment: Date of Thrive Assessment Date Thrive assessed 11/14/24 04/12/25 11:24 Const Other: Appearance: Alert. Oriented X3. No acute distress. Head: Normal external exam. Normocephalic. Atraumatic. Eyes: Pupils are equal, round, and reactive to light. Extraocular movements intact. Conjunctiva and sclera normal. Eyelids normal. Throat: Pharynx normal. Uvula midline. Moist mucous membranes. Neck: Normal inspection. Neck supple. Full range of motion. Cardiovascular: Normal heart rate and rhythm. Heart sound normal. No murmurs noted. Pulses normal throughout. Respiratory: No respiratory distress. Painless inspiration. Breath sounds normal. No wheezes/rales/rhonchi noted. Chest nontender. No accessory muscle usage noted or decreased air movement noted. Abdomen: Soft and nontender. Bowel sounds normal in all 4 quadrants. No distention noted. No organomegaly noted. No visible injury noted. Back: No costovertebral angle tenderness. Full range of motion noted. Skin: Skin warm and dry. Normal skin color. Normal skin turgor. No rashes/lesions/lacerations noted. Extremities: No lower extremity edema. Extremities exhibit normal range of motion. Neuro: Oriented X 3. No motor deficit. No sensory deficit. Reflexes normal. Coding Level of Care Code Add On Problem Visit Only TCM High MDM <= 14 days Diagnoses Hospital discharge follow-up Z51.89 Essential hypertension I10 UTI (urinary tract infection) N39.0 Type 2 diabetes mellitus with hyperglycemia, with long-term current use of insulin E11.65; Z79.4 Diabetes mellitus type: type 2 Diabetes mellitus senior care insulin use: with manager terminal use Hemorrhoids K64.9 Left leg paresthesias R20.2 Acute kidney injury superimposed on CKD N17.9; N18.9 Hypertensive urgency I16.0 Chronic kidney disease N18.9 Time Spent (min) 60 Assessment & Plan Assessment & Plan (1) Hospital discharge follow-up: Code(s): Z51.89 - Encounter for other specified aftercare Category: Medical (2) Essential hypertension: Code(s): I10 - Essential (primary) hypertension Category: Medical Plan: The patient's blood pressure remains elevated at 160/90 mmHg in the office despite being on carvedilol, doxazosin, amlodipine, and a clonidine patch. Given her recent acute kidney injury, no immediate changes will be made to her antihypertensive regimen. A discussion will be initiated with her solder deposit operator, Dr. Shin, to determine the next steps for management after her new lab results are available. (3) UTI (urinary tract infection): Comment: She has some resistance to carbapenems but Bactrim is sensitive. Code(s): N39.0 - Urinary tract infection, site not specified Category: Medical Plan: Confirmatory urinalysis and subsequent Keflex antibiotic course planned. (4) Diabetes mellitus with hyperglycemia: Code(s): E11.65 - Type 2 diabetes mellitus with hyperglycemia Category: Medical Qualifiers: Diabetes mellitus type: type 2 Diabetes mellitus manager terminal insulin use: with manager terminal use Qualified Code(s): E11.65 - Type 2 diabetes mellitus with hyperglycemia; Z79.4 - longterm (current) use of insulin Plan: Insulin regimen adherence from hospital stay noted with document clerk follow-up advised. (5) Hemorrhoids: Code(s): K64.9 - Unspecified hemorrhoids Category: Medical Plan: Topical treatment starting, with surgical prospects considered secondary. (6) Left leg paresthesias: Code(s): R20.2 - Paresthesia of skin Category: Medical Plan: Physical therapy referral for limb strength and stability. (7) Acute kidney injury superimposed on CKD: Code(s): N17.9 - Acute kidney failure, unspecified; N18.9 - Chronic kidney disease, unspecified Category: Medical Plan: Ongoing monitoring and future solder deposit operator-led assessments necessary. (8) Hypertensive urgency: Code(s): I16.0 - Hypertensive urgency Category: Medical Plan: Continuation of current treatment regimen with pending nephrology review. (9) Chronic kidney disease: Code(s): N18.9 - Chronic kidney disease, unspecified Category: Medical Plan: Monitoring with solder deposit operator direction and potential for reevaluation. Plan Plan Patient was informed and verbally consented to the use of an ambient scribe for clinic note documentation during this visit. 1. Hypertension The patient's blood pressure remains elevated at 160/90 mmHg in the office despite being on carvedilol, doxazosin, amlodipine, and a clonidine patch. Given her recent acute kidney injury, no immediate changes will be made to her antihypertensive regimen. A discussion will be initiated with her solder deposit operator, Dr. Shin, to determine the next steps for management after her new lab results are available. 2. Urinary Tract Infection Confirmatory urinalysis and subsequent Keflex antibiotic course planned. 3. Type 2 Diabetes Mellitus Insulin regimen adherence from hospital stay noted with document clerk follow-up advised. 4. Hemorrhoids Topical treatment starting, with surgical prospects considered secondary. 5. Chronic Left Leg Numbness Physical therapy referral for limb strength and stability. 6. Acute Kidney Injury Ongoing monitoring and future solder deposit operator-led assessments necessary. 7. Essential Hypertension Maintaining current antihypertensive regimen pending additional consults. 8. Hypertensive Emergency Continuation of current treatment regimen with pending nephrology review. 9. Chronic Kidney Disease Monitoring with solder deposit operator direction and potential for reevaluation. During our conversation, we reviewed the events surrounding the patient's recent hypertensive emergency and associated acute kidney injury. We discussed her ongoing medication regimen, with a plan to maintain current antihypertensives while awaiting further nephrological input. We agreed on obtaining a urinalysis to guide UTI management, proceeding with Keflex post-sampling, and coordinated upcoming follow-ups with nephrology and endocrinology. We discussed hemorrhoid treatment alternatives, deciding to commence with topical creams. Additionally, physical therapy was advised for her left leg numbness. I highlighted the importance of consistent monitoring and adherence to follow-up care. Orders: Orders C Reactive Protein 04/12/25 Z00.00 - Encounter for general adult medical examination without abnormal findings Complete Blood Count Auto Diff 04/12/25 Z00.00 - Encounter for general adult medical examination without abnormal findings Comprehensive Met. Panel 04/12/25 Z00.00 - Encounter for general adult medical examination without abnormal findings Erythrocyte Sedimentation Rate 04/12/25 Z00.00 - Encounter for general adult medical examination without abnormal findings Magnesium 04/12/25 Z00.00 - Encounter for general adult medical examination without abnormal findings UA CC w/rflx Micro + Cult 04/12/25 Z00.00 - Encounter for general adult medical examination without abnormal findings PT Evaluation and Treatment 04/12/25 M79.605 - Pain in left leg Medications: New ipratropium-albuterol 20-100 mcg/actuation (Combivent Respimat) 1 puff inhalation Q4H 4 grams 3RF hydrocortisone 2.5% (Anusol-HC) 1 appl AL BEDTIME PRN 30 grams 3RF hemorrhoids cephalexin 500 mg PO DAILY 7 caps 0RF 7 days Patient Instructions: - Go to the lab for blood and urine tests. - Start taking Keflex after collecting urine if indicated. - Take Keflex once daily for 7 days. - Continue current medications as prescribed. - Do not take Torsemide until you have seen your kidney doctor. - Follow up with your solder deposit operator and document clerk. - Attend physical therapy for your left leg. - Schedule a visit back to our clinic in one month.
[2025-04-12 11:26] VITALS: BP 163/70; PULSE 97; RESP 18; TEMP 36.3; O2SAT 97; BMI 46.8
--- OUTSIDE RECORDS SUMMARY | 2025-04-12 14:39 | XMS_ITS | Encounter Summary ---
Author Organization [facility] Address [address] [place] [id number] Phone Care Team Providers Care Real Estate Job Titles Name Role Phone Pcp, Unknown Primary Care Provider Unavailabl e Encounter Details Date Type Department Care Team (Late st Contact Info) Description 04/06/2025 Lab [place] [facility] [place] [address] [place] [address] Cortney Young MD [address] [place] [address] [email or web address] Social History Tobacco Use Types Packs/Day Years [...] as of this encounter Plan of Treatment Not on file documented as of this encounter Procedures Procedure Name Priority Date/Time Associated Diagnosis Comments TISSUE EXAM Routine 04/03/2025 1:00 AM EST documented in this encounter Results * Tissue Exam (04/03/2025 1:00 AM EST) Final Pathologic Diagnosis A. KIDNEY ALLOGRAFT; CORE BIOPSY FOR IMMUNOFLUORESCENCE ([id number]; 04/03/2025): C4d negative in peritubular capillaries (See note.) Note: Indirect immunofluorescence is performed for C4d on frozen tissue provided by the outside institution that contains about eight glomeruli. C4d is negative in peritubular capillaries. 5 5:[address] [facility] at 1751 EST Clinical History Rule out rejection 5 5:[address] [facility] Gross Description A. KIDNEY ALLOGRAFT; CORE BIOPSY FOR IMMUNOFLUORESCENCE ([id number]; 04/03/2025): Name: Queenie Krishna; ; and : 1960 Collection/Order Information: Tissue - General ; Kidney Allograft ; ''[id number]'' Specimen Label: matches the above (Confirmed by: RR) Received are two frozen section tissue slides. 5 5:[address] [facility] Grossed By Trina Hutson MD, PhD 5:[address] [facility] Result Priority Level Routine 5 5:[address] [facility] Disclaimer By their signature above, the pathologist listed as making the Final Diagnosis certifies that they have personally reviewed the case and confirmed the diagnosis. All slides and stains were of sufficient quality to establish the diagnosis, unless otherwise stated. Due to loss of elastic tension and/or tissue shrinkage in formalin, the clinical sizes of tissue specimens may be larger than those provided in this report. 5 5:[address] [facility] Tissue - General (Kidney Allograft) 04/03/2025 1:00 AM EST 04/06/2025 1:21 PM EST us Cortney Young MD LAB PATHOLOGY ORDERABLES Final Result [facility] [address] [place] [address] documented in this encounter Visit Diagnoses Not on filedocumented in this encounter Care Teams Real Estate Job Titles Relationship Specialty Start Date End Date Pcp, Unknown PCP - General 09/01/23 documented as of this encounter Additional Source Comments The information contained in this document represents components of the legal health record. It is not the complete legal health record.[facility]
--- OUTSIDE RECORDS SUMMARY | 2025-04-12 14:39 | XMS_ITS | Clinical Summary ---
Author Organization [facility] Address [address] [place] [address] Phone Care Team Providers Care Sheriff'S Officer Name Role Phone Pcp, Unknown Primary Care Provider Unavailabl e Encounters Date Type Department Care Team Description 04/06/2025 Lab Requisition [facility] Lab Main [address] [place] [address] Cortney Young MD from Last 3 Months Social History Tobacco Use Types Packs/Day Years [...] on file Medical Devices Not on file Procedures Procedure Name Priority Date/Time Associated Diagnosis Comments TISSUE EXAM Routine 04/03/2025 1:00 AM EST from Last 3 Months Results * Tissue Exam (04/03/2025 1:00 AM EST) Final Pathologic Diagnosis A. KIDNEY ALLOGRAFT; CORE BIOPSY FOR IMMUNOFLUORESCENCE ([id number]; 04/03/2025): C4d negative in peritubular capillaries (See note.) Note: Indirect immunofluorescence is performed for C4d on frozen tissue provided by the outside institution that contains about eight glomeruli. C4d is negative in peritubular capillaries. 5:51 PM EST [facility] at 1751 EST Clinical History Rule out rejection 5 5:51 PM EST [facility] Gross Description A. KIDNEY ALLOGRAFT; CORE BIOPSY FOR IMMUNOFLUORESCENCE ([id number]; 04/03/2025): Name: Queenie Krishna; ; and : 1960 Collection/Order Information: Tissue - General ; Kidney Allograft ; ''[id number]'' Specimen Label: matches the above (Confirmed by: RR) Received are two frozen section tissue slides. 5 5:51 PM EST [facility] Grossed By Trina Hutson MD, PhD 5:51 PM EST [facility] Result Priority Level Routine 5:51 PM EST [facility] Disclaimer By their signature above, the pathologist [...] larger than those provided in this report. 5:51 PM [facility] Tissue - General (Kidney Allograft) 04/03/2025 1:00 AM EST 04/06/2025 1:21 PM EST us Cortney Young MD LAB PATHOLOGY ORDERABLES Final Result [facility] [address] [place] [address] from Last 3 Months [facility] PP MEDICARE REPLAC[facility] PPO MEDICARE [facility]PLAC[facility] RE[facility] Care Teams Sheriff'S Officer Relationship Specialty Start Date End Date Pcp, Unknown PCP - General 09/01/23 Additional Source Comments The information contained in this document represents components of the legal health record. It is not the complete legal health record.[facility]
--- OUTSIDE RECORDS SUMMARY | 2025-04-12 14:40 | XMS_ITS | Clinical Summary ---
Author Organization [facility] Address [address] [place] [address] Care Team Providers Care Meat Department Manager Name Role Phone Pcp, No Primary Care Provider Davey Jacobs MD Unavailable [phone] Encounters Date Type Department Care Team Description 03/21/2025 11:00 PM EST Lab [facility] [address] [facility] [address] [facility] [address] [place] [address] Evaristo Shin MD Lupus anticoagulant disorder (Primary Dx) from Last 3 Months Social History Tobacco [...] 50+ (1 of 1 - PCV) 10/04/2011 RSV Vaccine 50 years and older and Patients (1 - Risk 50-74 years 1-dose series) 10/04/2011 Zoster (Shingles) Vaccine (1 of 2) 10/04/2011 Influenza Vaccine 11/25/2024 01/31/2024, , 01/25/2018, Additional history exists COVID-19 Vaccine (2 - season) 2024 01/10/2021 Hepatitis B Vaccines Aged Out No long er eligible based on patient's age to complete this topic Procedures Procedure Name Priority Date/Time Associated Diagnosis Comments LAB RESULT Routine 03/30/2025 2:59 PM EST LAB RESULT Routine 03/24/2025 9:59 AM EST from Last 3 Months Results * LAB RESULT (03/30/2025 2:59 PM EST) Only the most recent of2 resultswithin the time period is included. us [place] Shin MD HX AMB PROCEDURES Final Resul t from Last 3 Months Insurance [facility] [employer] [place] MEDICARE Care Teams Meat Department Manager Relationship Specialty Start Date End Date Pcp, No [address] [place] [address] PCP - General 12/12/19 Davey Conde MD [address] [place] [id number] Referring Provider Internal Medicine 09/26/23
--- OUTSIDE RECORDS SUMMARY | 2025-04-12 14:40 | XMS_ITS | Patient Health Record ---
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 NO MORE THAN 3 TIMES A WEEK Oral; Duration: 5 Days Unknown Furosemide 40 MG Oral; Duration: 30 Days Unknown Cyclobenzaprine HCl 10 MG Oral; Duration: 30 Days Unknown Vitamin D (Ergocalciferol) 1.25 MG (66225 UT) Oral; Duration: 84 Days Unknown Omeprazole [...] less (1 point) Points 1 Interpretation Negative Plan Of Treatment No Information Insurance Providers Payer Name Payer Address Payer Phone Subscriber Number Group Number Insured Name Patient Relationship to Insured Coverage Start Date Coverage End Date [employer] [address] [address] [place] [address] [phone] [id number] Queenie Krishna Self - patient is the insured Medical (General) History Medical History History ICD Code Arthritis Back,Hip,and Knee pain Diabetic Headaches/Migraines Kidney disease Numbness Chicken pox Lupus
== END 2025-04-12 12:11 | disposition home or self-care (01) ==
LOC: HO.HMCSH 11:06
PROVIDERS: PCP Physician Assistant Medical; Visit Provider Physician Assistant Medical
DX: Z51.89 Encounter for other specified aftercare (principal); I12.9 Hypertensive chronic kidney disease with stage 1 through stage 4 chronic kidney disease, or unspecified chronic kidney disease; N39.0 Urinary tract infection, site not specified; E11.65 Type 2 diabetes mellitus with hyperglycemia; Z79.4 Long term (current) use of insulin; K64.9 Unspecified hemorrhoids; R20.2 Paresthesia of skin; N17.9 Acute kidney failure, unspecified; N18.9 Chronic kidney disease, unspecified; I16.0 Hypertensive urgency

== ENCOUNTER 2025-04-12 11:02 | Outpatient (REF) | payer MEDICARE, SELFPAY ==
[2025-04-12 16:18] LABS: MANUAL DIFF FLAG NO
[2025-04-12 16:26] LABS: Hematocrit 26.6 % (37.0-47.0); Hemoglobin 8.0 g/dl (12.0-16.0); Imm Gran Abs Auto 0.14 X10*3/uL (0.00-0.03); Imm Gran Pct Auto 1.4 % (0.0-0.4); Lymphocytes Absolute Auto 1.0 X10*3/uL (1.2-4.9); Mean Corpuscular HGB Conc 30.1 g/dl (31.0-35.0); Mean Corpuscular Hemoglobin 27.8 pg (27.0-33.0); Mean Corpuscular Volume 92.4 fL (80.0-98.0); NRBC Abs Auto 0.000 X10*3/uL (0.0-0.012); NRBC Pct Auto 0.0 /100WBC (0.0-0.2); Platelet Count 173 X10*3/uL (160-400); Red Blood Count 2.88 X10*6/uL (4.20-5.50); White Blood Count 10.1 X10*3/uL (4.8-10.8)
[2025-04-12 16:29] LABS: Appearance Urine Turbid; Glucose Urine UA 250 mg/dL (Negative); PH 5.5 (5.0-9.0); Specific Gravity - Urine 1.015 (1.005-1.025); UMIC TRIGGER UACC YES
[2025-04-12 16:44] LABS: UACC Culture Trigger YES
[2025-04-12 16:47] LABS: Alanine Aminotransferase 36 U/L (0-31); Albumin Level 3.1 g/dL (3.5-5.0); Alkaline Phosphatase 113 U/L (39-117); Anion Gap 13 (12-20); Aspartate Amino Transferase 31 U/L (5-31); Blood Urea Nitrogen 41 mg/dL (9-16); Calcium 8.4 mg/dL (8.4-10.2); Carbon Dioxide 19 mmol/L (22-29); Chloride 113 mmol/L (96-108); Estimated Glomerular Filt Rate 15; Magnesium 1.6 mg/dL (1.6-2.6); Potassium 4.9 mmol/L (3.3-5.1); Sodium 140 mmol/L (135-145); Total Protein 5.4 g/dL (6.5-8.0)
== END 2025-04-12 11:03 | disposition home or self-care (01) ==
LOC: HO.HMGCLDS 11:02
PROVIDERS: PCP Physician Assistant Medical; Visit Provider Physician Assistant Medical
DX: Z00.00 Encounter for general adult medical examination without abnormal findings (principal); Z51.89 Encounter for other specified aftercare; N39.0 Urinary tract infection, site not specified; E11.65 Type 2 diabetes mellitus with hyperglycemia; E11.22 Type 2 diabetes mellitus with diabetic chronic kidney disease; I12.9 Hypertensive chronic kidney disease with stage 1 through stage 4 chronic kidney disease, or unspecified chronic kidney disease; N18.9 Chronic kidney disease, unspecified; I16.0 Hypertensive urgency; K64.9 Unspecified hemorrhoids; R20.2 Paresthesia of skin; N17.9 Acute kidney failure, unspecified
CPT/HCPCS: 36415; 80053; 81001; 83735; 85025; 85652; 86140; 87086; 87088; 87186; 99495